=== PATIENT | male | born 1955 | race Two or more races ===

== ENCOUNTER 2016-07-19 15:22 | Inpatient (IN) | payer MEDICARE, MEDICAID ==
[~2016-07-19] VITALS: Ht 165.1 cm; Wt 45.4 kg
[2016-07-19] VITALS (8 sets, daily range): BP systolic 99–132; BP diastolic 41–53
[~2016-07-19 15:22] MED LIST: ACETAZOLAMIDE500 MG ORAL; AMIODARONE HCL100 MG ORAL; AMIODARONE HCL200 MG PO; AMIODARONE HCL400 M1 ORAL; AMITRIPTYLINE150 MG PO; AMITRIPTYLINE25 MG ORAL; AMLODIPINE BESY10 MG ORAL; AMLODIPINE BESY10 MG PO; BRIMONIDINE TART5 ML RIGHT EYE; CLONIDINE1 EAC1 TD; COMPAZINE10 MG ORAL; CORDARONE200 M1 ORAL; COSOPT1 DRO2 RIGHT EYE; COZAAR50 MG ORAL; COZAAR50 MG PO; JANUVIA25 MG ORAL; JANUVIA25 MG PO; LOMOTIL TABLET1 EACH PO; LONITEN2.5 MG PO; LORAZEPAM0.5 MG PO; LOSARTAN POTASS50 MG ORAL; METOCLOPRAM5 MG/1 M1 IVP; METOCLOPRAMIDE10 M1 PO; METOPROLOL TART25 MG PO; MINOXIDIL2.5 MG PO; NEPHROVITE1 TAB PO; NORCO 5-325 TA1 EACH ORAL; NORCO 5-325 TA1 EACH PO; PANTOPRAZOLE SO40 MG ORAL; PERCOCET 5-3251 EACH ORAL; PREDNISOLONE ACE5 ML OP; PREDNISOLONE ACE5 ML RIGHT EYE; PROTONIX40 MG PO; RENVELA800 MG ORAL; RENVELA800 MG PO; SYNTHROID25 MCG ORAL; XALATAN2.5 ML RIGHT EYE; ZOFRAN 4 MG4 MG/2 ML IVP; ZOFRAN ODT4 MG PO; ZOFRAN8 MG ORAL
[2016-07-19] MEDS ORDERED: Famotidine 20 MG/ 2ML VIAL IVP ONE (15:45)
--- NOTE | 2016-07-19 15:50 | Emergency Room Report ---
History of Present Illness General Chief Complaint: Gastrointestinal Bleed Source: Patient Present Illness HPI Patient is a 61-year-old male who presented after increased hematemesis as well as bleeding from his G-tube site. Patient prior history of end-stage renal disease. Patient reportedly been vomiting blood since 2 days ago. The patient reports being dialyzed on Wednesday and is normally dialyzed Wednesday using right arm shunt. Patient denied any fever. He reported having some epigastric pain. Allergies: Coded Allergies: No Known Allergies (Unverified , 10/25/11) Patient History Past Medical History: see triage record, HTN, renal disease, dialysis - mwf Reviewed Nursing Documentation: PMH: Agreed, PSxH: Agreed Nursing Documentation-PMH Past Medical History: No History, Except For Hx Cardiac Problems: Yes Hx Hypertension: No Hx Pacemaker: Yes Hx Asthma: No Hx COPD: No Hx Diabetes: Yes Hx Cancer: No Hx Gastrointestinal Problems: Yes - gastroperesis Hx Dialysis: Yes - M, W, F Hx Neurological Problems: No Review of Systems All Other Systems: negative except mentioned in HPI Physical Exam Vital Signs Date Time Temp Pulse Resp B/P Pulse Ox O2 Delivery O2 Flow Rate FiO2 07/19/16 15:29 97.7 92 16 98/53 99 Room Air Sp02 EP Interpretation: normal General Appearance: alert, GCS 15, mild distress Eyes: bilateral eye conjunctivae pale ENT: hearing grossly normal, normal pharynx Neck: full range of motion, supple Respiratory: lungs clear, normal breath sounds, no respiratory distress Cardiovascular #1: normal peripheral pulses, regular rate, rhythm, no edema Gastrointestinal: non tender, soft, no mass, no organomegaly, other - gastrostomy tube Musculoskeletal: back normal, digits/nails normal, other - right upper arm dialysis access with palpable thrill Neurologic: alert, oriented x3, responsive Skin: normal inspection Procedures Critical Care Time Critical Care Time Patient had a critical medical condition which untreated could potentially result in life or limb threatening injury. Total critical care time excluding procedures approximately 45 minutes. Medical Decision Making Diagnostic Impression: Primary Impression: Gastrointestinal bleeding, upper Additional Impressions: Anemia Gastrostomy in place ESRD (end stage renal disease) ER Course Patient presented for upper GI bleeding. The patient was noted to have prior history of gastroparesis. Differential diagnosis included was not limited to the G-tube migration, ulcer, gastritis, coagulopathy, variceal bleed among others.Because of complexity of patient's case laboratory testing and imaging studies were ordered.Patient was noted be initially hypotensive and was started on IV fluids. The patient was consented for blood and was type and crossed for blood 4units of PRBC. EKG interpreted by me showed normal sinus rhythm with a rate of 86 with a right bundle-branch block and left anterior fascicular block there were no acute ST or T wave changes noted. The patient was noted to have improvement in his blood pressure after IV fluid. Dr. Dee was contacted for GI consult and was informed of the patient's hemoglobin. Dr. Guillermo Galvez was contacted for in patient management. The patient was given IV Zofran as well as Pepcid IV Labs Test 07/19/16 16:18 White Blood Count 7.9 K/UL (4.8-10.8) Red Blood Count 1.66 M/UL (4.70-6.10) Hemoglobin 5.4 G/DL (14.2-18.0) Hematocrit 16.1 % (42.0-52.0) Mean Corpuscular Volume 97 FL (80-99) Mean Corpuscular Hemoglobin 32.4 PG (27.0-31.0) Mean Corpuscular Hemoglobin Concent 33.3 G/DL (32.0-36.0) Red Cell Distribution Width 13.8 % (11.6-14.8) Platelet Count 102 K/UL (150-450) Mean Platelet Volume 6.5 FL (6.5-10.1) Neutrophils (%) (Auto) % (45.0-75.0) Lymphocytes (%) (Auto) % (20.0-45.0) Monocytes (%) (Auto) % (1.0-10.0) Eosinophils (%) (Auto) % (0.0-3.0) Basophils (%) (Auto) % (0.0-2.0) EKG Diagnostic Results Rate: normal Rhythm: NSR ST Segments: other - bifascicular block Last Vital Signs Date Time Temp Pulse Resp B/P Pulse Ox O2 Delivery O2 Flow Rate FiO2 07/19/16 15:41 98.0 87 15 99/45 100 Room Air Status: unchanged Disposition: ADMITTED INPATIENT Condition: Critical Harry Guzman Jul 19, 2016 15:50
[2016-07-19 16:49] LABS: MEAN CORPUSCULAR HEMOGLOBIN 32.4 PG (27.0-31.0); MEAN CORPUSCULAR HGB CONC 33.3 G/DL (32.0-36.0); MEAN CORPUSCULAR VOLUME 97 FL (80-99); MEAN PLATELET VOLUME 6.5 FL (6.5-10.1); PLATELET COUNT 102 K/UL (150-450); RED BLOOD COUNT 1.66 M/UL (4.70-6.10); RED CELL DISTRIBUTION WIDTH 13.8 % (11.6-14.8); WHITE BLOOD COUNT 7.9 K/UL (4.8-10.8)
[2016-07-19 16:54] LABS: INR 1.2 (0.9-1.1)
[2016-07-19 17:00] LABS: ALANINE AMINOTRANSFERASE 12 U/L (3-41); ALBUMIN/GLOBULIN RATIO 1.7 (1.0-2.7); ALCOHOL < 10 mg/dL; ANION GAP 15 (5-15); ASPARTATE AMINO TRANSFERASE 12 U/L (5-40); CALCIUM 9.4 mg/dL (8.6-10.2); CARBON DIOXIDE 28 mEQ/L (20-30); CHLORIDE 97 mEQ/L (98-107); CREATININE 6.6 mg/dL (0.7-1.2); GLOMERULAR FILTRATION RATE 8.6 mL/min (>60); HEMOLYSIS 4; LIPASE 30 U/L (< 60); SODIUM 140 mEQ/L (135-145)
[2016-07-19] MEDS ORDERED: Metoclopramide 10mg/2ml Inj IVP ONE (18:30)
[2016-07-19 18:32] LABS: BAND NEUTROPHILS % (MANUAL) 0 % (0-8); BASOPHILS % (MANUAL) 0 % (0-2); EOSINOPHILS % (MANUAL) 0 % (0-3); LYMPHOCYTES % (MANUAL) 7 % (20-45); NEUTROPHILS % (MANUAL) 91 % (45-75); PLATELET ESTIMATE DECREASED; TOTAL CELLS COUNTED 100
[2016-07-19 18:33] LABS: ANISOCYTOSIS 1+; POLYCHROMASIA 1+
[2016-07-19 18:34] LABS: HYPOCHROMASIA 1+; PLATELET MORPHOLOGY NORMAL
--- NOTE | 2016-07-19 19:53 | General Progress Note ---
Assessment/Plan Assessment/Plan GI CONSULT Dictated EGD in am Thank you Luiz Subjective Allergies: Coded Allergies: No Known Allergies (Unverified , 10/25/11) Objective Last 24 Hour Vital Signs Date Time Temp Pulse Resp B/P Pulse Ox O2 Delivery O2 Flow Rate FiO2 07/19/16 18:15 98.1 86 16 102/43 98 Room Air 07/19/16 18:15 98.1 86 16 07/19/16 18:00 98.2 85 16 07/19/16 18:00 98.2 85 16 99/41 98 Room Air 07/19/16 17:16 98.0 89 14 123/42 98 Room Air 07/19/16 15:41 98.0 87 15 99/45 100 Room Air 07/19/16 15:29 97.7 92 16 98/53 99 Room Air Laboratory Tests 07/19/16 16:18: White Blood Count 7.9, Red Blood Count 1.66L, Hemoglobin 5.4*L, Hematocrit 16.1L , Mean Corpuscular Volume 97, Mean Corpuscular Hemoglobin 32.4H, Mean Corpuscular Hemoglobin Concent 33.3, Red Cell Distribution Width 13.8, Platelet Count 102L, Mean Platelet Volume 6.5, Neutrophils (%) (Auto) , Lymphocytes (%) ( Auto) , Monocytes (%) (Auto) , Eosinophils (%) (Auto) , Basophils (%) (Auto) , Differential Total Cells Counted 100, Neutrophils % (Manual) 91H, Lymphocytes % (Manual) 7L, Monocytes % (Manual) 2, Eosinophils % (Manual) 0, Basophils % ( Manual) 0, Band Neutrophils 0, Platelet Estimate DecreasedL, Platelet Morphology Normal, Polychromasia 1+, Hypochromasia 1+, Anisocytosis 1+, Prothrombin Time 12.0H, Prothromb Time International Ratio 1.2H, Activated Partial Thromboplast Time 23, Sodium Level 140, Potassium Level 5.0H, Chloride Level 97L, Carbon Dioxide Level 28, Anion Gap 15, Blood Urea Nitrogen 72H, Creatinine 6.6H, Estimat Glomerular Filtration Rate 8.6, Glucose Level 190H, Calcium Level 9.4, Total Bilirubin 0.3, Aspartate Amino Transf (AST/SGOT) 12, Alanine Aminotransferase (ALT/SGPT) 12, Alkaline Phosphatase 63, Total Protein 5.0L, Albumin 3.2L, Globulin 1.8, Albumin/Globulin Ratio 1.7, Lipase 30, Serum Alcohol < 10 Height (Feet): 5 Height (Inches): 3.00 Weight (Pounds): 95 KAYDEN MORALES Jul 19, 2016 19:53
[2016-07-19] MEDS: Pantoprazole 80 MG in NS 250 ML IV SCH (20:12)
[2016-07-19] MEDS: Brimonidine 0.2% Opth Sol RIGHT EYE SCH (21:00)
[2016-07-19] MEDS: Minoxidil 2.5mg tab ORAL SCH (21:00)
[2016-07-19] MEDS: Pred Forte 1% Opth Susp 1ml RIGHT EYE SCH (21:00)
[2016-07-19] MEDS: Cosopt Opth Soln 10 mL Btl RIGHT EYE SCH (21:00)
[2016-07-20] VITALS (24 sets, daily range): BP systolic 80–152; BP diastolic 39–63
[2016-07-20 00:10] LABS: MEAN CORPUSCULAR HEMOGLOBIN 31.6 PG (27.0-31.0); MEAN CORPUSCULAR VOLUME 93 FL (80-99); MEAN PLATELET VOLUME 6.6 FL (6.5-10.1); PLATELET COUNT 106 K/UL (150-450); RED BLOOD COUNT 2.36 M/UL (4.70-6.10); RED CELL DISTRIBUTION WIDTH 13.3 % (11.6-14.8)
--- NOTE | 2016-07-20 01:58 | History and Physical Report ---
DATE OF ADMISSION: 07/19/2016 CHIEF COMPLAINT: Acute gastrointestinal bleed. HISTORY OF PRESENT ILLNESS: The patient is a pleasant 61-year-old male well known to me. He has a history of severe gastroparesis status post G-tube, hypertension, and end-stage renal disease on chronic hemodialysis. He was recently diagnosed with lung cancer and was scheduled to get surgery. The patient presented with complaints of two days of coffee-ground emesis and melena. According to the patient, he had coffee-ground emesis two days prior to admission. This symptom ceased, but then recovered today. He has also noted two days of black stools. On evaluation in the emergency room, the patient's hemoglobin was 5. Coags were normal. He is currently being transfused. The patient denies any chest pain or shortness of breath. PAST MEDICAL HISTORY: As above. PAST SURGICAL HISTORY: Includes a history of AV fistula. CURRENT MEDICATIONS: Reconciled and reviewed. ALLERGIES: None. FAMILY HISTORY: None. SOCIAL HISTORY: Negative for tobacco, ethanol, or drugs. REVIEW OF SYSTEMS: General: No fever or chills. HEENT: No headaches or visual changes. Cardiopulmonary: No chest pain or shortness of breath. Gastrointestinal: Positive nausea or vomiting. Positive melena. Positive hematemesis. Genitourinary: No urgency or frequency. Musculoskeletal: No joint pain or swelling. Neurologic: No evidence of seizures. PHYSICAL EXAMINATION: VITAL SIGNS: Temperature 98.1 degrees, pulse 86, respirations 16, and blood pressure 102/43. GENERAL: The patient is a well-developed, pink male, in no apparent distress. He is awake, alert, and oriented. HEENT: His pupils are equal, round, and reactive to light. Oropharynx is clear. NECK: Supple. HEART: Regular rate and rhythm. LUNGS: Clear. ABDOMEN: Soft, nontender, and nondistended. He has a G-tube. There is a blood over his gown. EXTREMITIES: Without clubbing or cyanosis. The patient has a right upper extremity AV fistula. NEUROLOGIC: Nonfocal. PERTINENT DATA: INR is 1.2 with PTT of 23, white count 8, hemoglobin 5.4, hematocrit of 16, and platelets of 102,000. Sodium is 140, potassium 5, chloride 97, bicarbonate 28, BUN 72, and creatinine 6.6. Alcohol level was less than 10. ASSESSMENT: This is a pleasant 61-year-old male with a history of end-stage renal disease, hypertension, lung cancer, and paroxysmal atrial fibrillation, admitted with acute severe gastrointestinal bleed. On hemodialysis, the patient is stable though he is currently being transfused. PROBLEMS: 1. Acute gastrointestinal bleed. 2. Chronic obstructive pulmonary disease. 3. Hypertension. 4. End-stage renal disease. 5. Paroxysmal atrial fibrillation. 6. History of gastroparesis status post gastrostomy tube. PLAN: 1. Intravenous Protonix drip. 2. Monitor serial CBCs. 3. Transfuse 3 units of packed red blood cells. 4. GI consultation will be obtained. 5. Continue outpatient antihypertensive regimen. 6. Bolus fluids as needed. In light of the patient's dialysis, we will hold on IV fluids. 7. The patient's status is critical and guarded. 8. Plan of care was discussed with the patient. Guillermo Galvez M.D. DR: DENZEL JOB#: [id number] CC:
--- NOTE | 2016-07-20 02:48 | Consultation ---
DATE OF CONSULTATION: 07/19/2016 CHIEF COMPLAINT: I was asked to see this patient for evaluation of hematemesis. HISTORY OF PRESENT ILLNESS: The patient is a pleasant, unfortunate, 61-year-old, man with a long-standing history of cyclic nausea and vomiting disorder with components of gastroparesis, who eventually underwent gastrojejunostomy catheter at an outside institution. The patient now was brought into the hospital. He had no hematemesis. The patient denies any abdominal discomfort or any other symptoms. His last endoscopy was on 06/12/2016 where he underwent placement of his gastrojejunostomy catheter. PAST MEDICAL HISTORY: History of cataract surgery; hypertension; end-stage renal disease, on hemodialysis; diabetes; and gastroparesis with cyclic vomiting syndrome, status post gastrojejunostomy catheter placement. PAST SURGICAL HISTORY: Status post cholecystectomy and AV fistula placement. ALLERGIES: No known drug allergies. FAMILY HISTORY: Noncontributory. SOCIAL HISTORY: The patient resides in area and is debilitated requiring significant care. REVIEW OF SYSTEMS: Otherwise negative. MEDICATIONS: See chart. PHYSICAL EXAMINATION: GENERAL: A thin and debilitated man seen in intensive care unit. HEENT: Normocephalic and atraumatic. Sclerae anicteric. Oropharynx is clear. NECK: Supple. CHEST: Revealed coarse breath sounds. CARDIOVASCULAR: Irregular rate. ABDOMEN: Soft. Good bowel sounds. Gastrojejunostomy catheter was identified and only. EXTREMITIES: Revealed no edema. LABORATORY DATA: Noted. ASSESSMENT: This patient presents with upper gastrointestinal bleeding, which is likely gastric in origin based on the appearance of upper gastrojejunostomy catheter. The possibilities include ulcers or gastroesophageal reflux. The patient will undergo endoscopy tomorrow to evaluate the possibilities . In the mean time, he can be placed on a proton pump inhibitor and blood transfusion can be given. His baseline hematocrit is likely lower than average since he has had end-stage renal disease. RECOMMENDATIONS: Per above discussion and per orders written in the chart. I have advised the patient that there is a possibility that the gastrojejunostomy catheter can be placed at the time of the endoscopy tomorrow. Thank you for asking me to participate in the care of this patient. Royce Dee M.D. DR: NIKKI JOB#: [id number] CC:
--- NOTE | 2016-07-20 03:38 | Consultation ---
DATE OF CONSULTATION: 07/19/2016 REFERRING PHYSICIAN: Guillermo Galvez M.D. REASON FOR CONSULTATION: Shock in the setting of acute gastrointestinal bleeding with underlying cardiomyopathy and arrhythmia. HISTORY OF PRESENT ILLNESS: This is a 61-year-old male with a history of ischemic and hypertensive cardiomyopathy, paroxysmal atrial fibrillation, and end-stage renal disease, on hemodialysis. He is on chronic antiarrhythmic therapy with amiodarone. He presented to the emergency room with recurrent hematemesis and bleeding from his G-tube site. The patient apparently has been having bloody emesis for the past two days. He has had some epigastric pain, but no other constitutional symptoms. PAST MEDICAL HISTORY: Gastroparesis, diabetes mellitus, paroxysmal atrial fibrillation, permanent pacemaker, cardiomyopathy, congestive heart failure, and end-stage renal disease. ALLERGIES: None. FAMILY HISTORY: Noncontributory. SOCIAL HISTORY: No record of smoking, alcohol, or substance abuse. MEDICATIONS: Prior to admission, reviewed and reconciled. REVIEW OF SYSTEMS: No fevers or chills. No new antiplatelet or anticoagulant therapies. No seizures or strokes. No chest pain or shortness of breath. He gets dialysis from his AV fistula on the right upper extremity Wednesday, Wednesday, and Wednesday. He was at his last dialysis session Wednesday without problem. No history of asthma. He does not recall when his pacemaker was last checked. He was last here in early 2015 and it was interrogated at that time. PHYSICAL EXAMINATION: VITAL SIGNS: Blood pressure 98/53, pulse 93, and respirations 16. Afebrile. GENERAL: Temporal wasting. HEENT: Pale conjunctivae. Oropharynx is clear. NECK: Supple. LUNGS: Clear. CARDIAC: Regular rhythm and rate. Normal S1, paradoxically split S2. 1/6 systolic murmur at apex. ABDOMEN: Soft and nontender. G-tube intact. EXTREMITIES: No edema. Palpable bruit over right upper extremity AV fistula. LABORATORY DATA: White count 7.9, hemoglobin 5.4, and platelet count 102,000. INR 1.2. Sodium 140, potassium 5.0, bicarb 28, BUN 72, and creatinine 6.6. Albumin 3.2. Glucose 190. Lipase is normal. IMPRESSION: 1. Shock, hypovolemia. 2. Acute blood loss due to gastrointestinal bleeding. 3. Bifascicular heart block. 4. Conduction system disease of the heart. 5. Paroxysmal atrial fibrillation. 6. Underlying cardiomyopathy. 7. Insulin-requiring diabetes with gastroparesis. 8. End-stage renal disease. Condition is critical. Prognosis is guarded. PLAN: 1. Transfusion of packed cells. 2. Cautious volume support in view of renal failure. 3. Hold all antihypertensives. 4. Avoid any antiplatelet drugs or anticoagulants. 5. Transfuse for hemoglobin above 7.5 g. 6. Hemodialysis with ultrafiltration based on volume. 7. Continue amiodarone for arrhythmia suppression. 8. Pacemaker interrogation to follow. 9. Intensive care unit monitoring and protocol in view of critical condition. Christopher Muhammad M.D. DR: RAMIREZ JOB#: [id number] CC: RIGOBERTO
[2016-07-20 04:57] LABS: BASOPHILS % (AUTO) 1.1 % (0.0-2.0); EOSINOPHILS % (AUTO) 0.4 % (0.0-3.0); LYMPHOCYTES % (AUTO) 20.1 % (20.0-45.0); MEAN CORPUSCULAR HEMOGLOBIN 31.5 PG (27.0-31.0); MEAN CORPUSCULAR HGB CONC 34.1 G/DL (32.0-36.0); MEAN CORPUSCULAR VOLUME 92 FL (80-99); MEAN PLATELET VOLUME 6.9 FL (6.5-10.1); NEUTROPHILS % (AUTO) 69.5 % (45.0-75.0); PLATELET COUNT 101 K/UL (150-450); RED BLOOD COUNT 2.62 M/UL (4.70-6.10); RED CELL DISTRIBUTION WIDTH 13.5 % (11.6-14.8); WHITE BLOOD COUNT 5.2 K/UL (4.8-10.8)
[2016-07-20] MEDS: Pantoprazole 80 MG in NS 250 ML IV SCH ×2 (06:27→16:24)
[2016-07-20] MEDS: Levothyroxine 25mcg tab ORAL SCH (06:27)
[2016-07-20 07:47] LABS: CREATININE 7.3 mg/dL (0.7-1.2); GLOMERULAR FILTRATION RATE 7.6 mL/min (>60); POTASSIUM 5.6 mEQ/L (3.4-4.9)
[2016-07-20] MEDS: Pred Forte 1% Opth Susp 1ml RIGHT EYE SCH ×4 (09:00→21:00)
[2016-07-20] MEDS: Cosopt Opth Soln 10 mL Btl RIGHT EYE SCH ×2 (09:00→18:00)
[2016-07-20] MEDS: Amiodarone 200mg tab ORAL SCH (09:00)
[2016-07-20] MEDS: Brimonidine 0.2% Opth Sol RIGHT EYE SCH ×2 (09:00→18:00)
[2016-07-20] MEDS: Minoxidil 2.5mg tab ORAL SCH (09:00)
[2016-07-20 10:25] LABS: BAND NEUTROPHILS % (MANUAL) 0 % (0-8); BASOPHILS % (MANUAL) 0 % (0-2); EOSINOPHILS % (MANUAL) 0 % (0-3); HYPOCHROMASIA 3+; LYMPHOCYTES % (MANUAL) 23 % (20-45); NEUTROPHILS % (MANUAL) 70 % (45-75); PLATELET ESTIMATE DECREASED; PLATELET MORPHOLOGY NORMAL; SPHEROCYTES 2+; TOTAL CELLS COUNTED 100
--- NOTE | 2016-07-20 10:53 | Diagnostic Imaging Report ---
Indication: VOMITING Technique: Supine view of the abdomen Comparison: 05/08/2015 Findings: There is a gastrojejunostomy tube now present, course of the jejunostomy suggestive of the tip being in the proximal jejunum just beyond the ligament of Treitz. There is possible, but less likely, that the catheters is coiled within the gastric antrum, however. Previously demonstrated nasogastric tube has been removed. Bowel gas pattern is unremarkable area. Cholecystectomy clips are again demonstrated Impression: Probably satisfactory position of gastrojejunostomy, jejunostomy tip in the expected region of the proximal jejunum just beyond the ligament of Treitz. However, contrast injection would be necessary to confirm. Other findings as noted
--- NOTE | 2016-07-20 11:37 | Anethesia Preoperative Eval ---
Anesthesia Pre-op PMH/ROS General Date of Evaluation: Jul 20, 2016 Time of Evaluation: 12:39 Anesthesiologist: Tabitha ASA Score: ASA 4 Mallampati Score Class I : Soft palate, uvula, fauces, pillars visible Class II: Soft palate, uvula, fauces visible Class III: Soft palate, base of uvula visible Class IV: Only hard plate visible Mallampati Classification: Class II Surgeon: Luiz Diagnosis: Abd Pain Surgical Procedure: GD Anesthesia History: none Family History: no anesthesia problems Allergies: Coded Allergies: No Known Allergies (Unverified , 10/25/11) Medications: see eMAR Past Medical History Cardiovascular: Reports: CAD - CT, Angina, HTN, arrhythmia Gastrointestinal/Genitourinary: Reports: ESRD - Dialysis Endocrine: Reports: DM Hematology/Immune: Reports: anemia, other - Cancer Anesthesia Pre-op Phys. Exam Physician Exam Last Vital Signs Date Time Temp Pulse Resp B/P Pulse Ox O2 Delivery O2 Flow Rate FiO2 07/20/16 11:00 103 13 112/59 99 Room Air 07/20/16 08:00 98.9 Constitutional: NAD Neurologic: CN 2-12 intact Cardiovascular: RRR Respiratory: CTA Gastrointestinal: S/NT/ND Airway Exam Mallampati Score: Class II MO: limited ROM: limited Teeth: missing, intact Anesthesia Pre-op A/P Labs Hematology Test 07/19/16 16:18 07/20/16 00:00 07/20/16 04:00 White Blood Count 7.9 K/UL (4.8-10.8) 6.0 K/UL (4.8-10.8) 5.2 K/UL (4.8-10.8) Red Blood Count 1.66 M/UL (4.70-6.10) L 2.36 M/UL (4.70-6.10) L 2.62 M/UL (4.70-6.10) L Hemoglobin 5.4 G/DL (14.2-18.0) *L 7.5 G/DL (14.2-18.0) #L 8.3 G/DL (14.2-18.0) L Hematocrit 16.1 % (42.0-52.0) L 21.9 % (42.0-52.0) #L 24.2 % (42.0-52.0) L Mean Corpuscular Volume 97 FL (80-99) 93 FL (80-99) 92 FL (80-99) Mean Corpuscular Hemoglobin 32.4 PG (27.0-31.0) H 31.6 PG (27.0-31.0) H 31.5 PG (27.0-31.0) H Mean Corpuscular Hemoglobin Concent 33.3 G/DL (32.0-36.0) 34.0 G/DL (32.0-36.0) 34.1 G/DL (32.0-36.0) Red Cell Distribution Width 13.8 % (11.6-14.8) 13.3 % (11.6-14.8) 13.5 % (11.6-14.8) Platelet Count 102 K/UL (150-450) L 106 K/UL (150-450) L 101 K/UL (150-450) L Mean Platelet Volume 6.5 FL (6.5-10.1) 6.6 FL (6.5-10.1) 6.9 FL (6.5-10.1) Neutrophils (%) (Auto) % (45.0-75.0) % (45.0-75.0) 69.5 % (45.0-75.0) Lymphocytes (%) (Auto) % (20.0-45.0) % (20.0-45.0) 20.1 % (20.0-45.0) Monocytes (%) (Auto) % (1.0-10.0) % (1.0-10.0) 9.0 % (1.0-10.0) Eosinophils (%) (Auto) % (0.0-3.0) % (0.0-3.0) 0.4 % (0.0-3.0) Basophils (%) (Auto) % (0.0-2.0) % (0.0-2.0) 1.1 % (0.0-2.0) Differential Total Cells Counted 100 100 Neutrophils % (Manual) 91 % (45-75) H 70 % (45-75) Lymphocytes % (Manual) 7 % (20-45) L 23 % (20-45) Monocytes % (Manual) 2 % (1-10) 7 % (1-10) Eosinophils % (Manual) 0 % (0-3) 0 % (0-3) Basophils % (Manual) 0 % (0-2) 0 % (0-2) Band Neutrophils 0 % (0-8) 0 % (0-8) Platelet Estimate Decreased L Decreased L Platelet Morphology Normal Normal Polychromasia 1+ Hypochromasia 1+ 3+ Anisocytosis 1+ Spherocytes 2+ Coagulation Test 07/19/16 16:18 Prothrombin Time 12.0 SEC (9.30-11.50) H Prothromb Time International Ratio 1.2 (0.9-1.1) H Activated Partial Thromboplast Time 23 SEC (23-33) Chemistry Test 07/19/16 16:18 07/20/16 04:00 Sodium Level 140 mEQ/L (135-145) 142 mEQ/L (135-145) Potassium Level 5.0 mEQ/L (3.4-4.9) H 5.6 mEQ/L (3.4-4.9) H Chloride Level 97 mEQ/L (98-107) L 101 mEQ/L (98-107) Carbon Dioxide Level 28 mEQ/L (20-30) 25 mEQ/L (20-30) Anion Gap 15 (5-15) 16 (5-15) H Blood Urea Nitrogen 72 mg/dL (7-23) H 92 mg/dL (7-23) H Creatinine 6.6 mg/dL (0.7-1.2) H 7.3 mg/dL (0.7-1.2) H Estimat Glomerular Filtration Rate 8.6 mL/min (>60) 7.6 mL/min (>60) Glucose Level 190 mg/dL (74-106) H 111 mg/dL (74-106) H Calcium Level 9.4 mg/dL (8.6-10.2) 9.0 mg/dL (8.6-10.2) Total Bilirubin 0.3 mg/dL (0.0-1.2) Aspartate Amino Transf (AST/SGOT) 12 U/L (5-40) Alanine Aminotransferase (ALT/SGPT) 12 U/L (3-41) Alkaline Phosphatase 63 U/L (40-129) Total Protein 5.0 g/dL (6.6-8.7) L Albumin 3.2 g/dL (3.5-5.2) L Globulin 1.8 g/dL Albumin/Globulin Ratio 1.7 (1.0-2.7) Lipase 30 U/L (< 60) Risk Assessment & Plan Assessment: ASA 4 Plan: GA Status Change Before Surgery: Chun Jimenez MD Jul 20, 2016 11:37
[2016-07-20] MEDS ORDERED: Midazolam 2mg/2ml Inj ONE (12:30)
[2016-07-20] MEDS ORDERED: Propofol 10mg/ml 20ml IV ONE (12:30)
[2016-07-20] MEDS ORDERED: Lidocaine 1% MPF 10mg/ml 5ml ONE (12:30)
[2016-07-20] MEDS ORDERED: NS 550ML IV ONE (12:35)
--- NOTE | 2016-07-20 12:35 | Consultation ---
Consult Note Assessment/Plan Renal consul dictated # [id number] ROLAND FOX Jul 20, 2016 12:35
--- NOTE | 2016-07-20 13:04 | Immediate Post-Op Evaluation ---
Immediate Post-Op Evalulation Immediate Post-Op Evalulation Procedure: EGD Date of Evaluation: Jul 20, 2016 Time of Evaluation: 13:48 IV Fluids: 500 NS Blood Products: 0 Estimated Blood Loss: 2 Urinary Output: 0 Blood Pressure Systolic: 118 Blood Pressure Diastolic: 52 Pulse Rate: 81 Respiratory Rate: 16 O2 Sat by Pulse Oximetry: 99 Temperature (Fahrenheit): 98.6 Pain Score (1-10): 2 Nausea: No Vomiting: No Complications 0 Patient Status: awake, reacts, patent, none Hydration Status: adequate Chun Lu MD Jul 20, 2016 13:04
--- NOTE | 2016-07-20 13:04 | General Progress Note ---
Assessment/Plan Problem List: (1) Diabetic gastroparesis ICD Codes: E11.43 - Diabetic gastroparesis SNOMED: 11809696 (2) Anemia ICD Codes: D64.9 - Anemia SNOMED: 988749215 (3) INTRACTABLE VOMITING (4) ESRD (end stage renal disease) on dialysis ICD Codes: N18.6 - ESRD (end stage renal disease) on dialysis; Z99.2 - Dependence on renal dialysis SNOMED: 008418063 (5) Hypertension ICD Codes: I10 - Hypertension SNOMED: 15789847 (6) Gastrointestinal bleeding, upper ICD Codes: K92.2 - Upper gastrointestinal hemorrhage SNOMED: 94932615 Status: not improved Assessment/Plan ppi drip monitor h/h transfuse bp rx HD per renal guarded Subjective ROS Limited/Unobtainable: No Constitutional: Reports: malaise, weakness HEENT: Reports: no symptoms Cardiovascular: Reports: no symptoms Respiratory: Reports: no symptoms Gastrointestinal/Abdominal: Reports: blood in stool, rectal bleeding, vomiting Genitourinary: Reports: no symptoms Neurologic/Psychiatric: Reports: no symptoms Endocrine: Reports: no symptoms Hematologic/Lymphatic: Reports: anemia Allergies: Coded Allergies: No Known Allergies (Unverified , 10/25/11) All Systems: reviewed and negative except above Subjective vomited blood x 2. hypotensive. labs noted. d/w Objective Last 24 Hour Vital Signs Date Time Temp Pulse Resp B/P Pulse Ox O2 Delivery O2 Flow Rate FiO2 07/20/16 12:00 88 07/20/16 12:00 89 15 87/43 99 Room Air 07/20/16 11:00 103 13 112/59 99 Room Air 07/20/16 10:00 84 12 80/40 99 Room Air 07/20/16 09:00 81 11 86/42 97 Room Air 07/20/16 09:00 133/52 07/20/16 08:00 98.9 83 13 139/61 99 Room Air 07/20/16 07:00 80 13 129/62 97 Room Air 07/20/16 06:00 83 12 117/52 97 Room Air 07/20/16 05:00 88 19 123/56 99 Room Air 07/20/16 04:00 98.4 82 14 118/55 98 Room Air 07/20/16 04:00 88 07/20/16 03:00 83 12 118/55 99 Room Air 07/20/16 02:00 84 17 110/51 100 Room Air 07/20/16 01:00 83 13 97/39 99 Room Air 07/20/16 00:00 87 07/20/16 00:00 98.7 87 17 102/42 99 Room Air 07/19/16 23:00 83 13 101/51 98 Room Air 07/19/16 22:00 93 21 132/53 99 Room Air 07/19/16 21:00 114/47 07/19/16 21:00 85 11 115/51 99 Room Air 07/19/16 20:08 97.4 90 18 114/47 100 Room Air 07/19/16 20:00 88 07/19/16 19:40 90 07/19/16 18:15 98.1 86 16 102/43 98 Room Air 07/19/16 18:15 98.1 86 16 07/19/16 18:00 98.2 85 16 07/19/16 18:00 98.2 85 16 99/41 98 Room Air 07/19/16 17:16 98.0 89 14 123/42 98 Room Air 07/19/16 15:41 98.0 87 15 99/45 100 Room Air 07/19/16 15:29 97.7 92 16 98/53 99 Room Air Intake and Output 07/19/16 07/20/16 19:00 07:00 Intake Total 1125 ml Output Total 450 ml Balance 675 ml Intake Oral 0 ml IV Total 275 ml Blood Product 850 ml Output Urine Total 0 ml Emesis 450 ml # Bowel Movements 1 Laboratory Tests 07/19/16 16:18: White Blood Count 7.9, Red Blood Count 1.66L, Hemoglobin 5.4*L, Hematocrit 16.1L , Mean Corpuscular Volume 97, Mean Corpuscular Hemoglobin 32.4H, Mean Corpuscular Hemoglobin Concent 33.3, Red Cell Distribution Width 13.8, Platelet Count 102L, Mean Platelet Volume 6.5, Neutrophils (%) (Auto) , Lymphocytes (%) ( Auto) , Monocytes (%) (Auto) , Eosinophils (%) (Auto) , Basophils (%) (Auto) , Differential Total Cells Counted 100, Neutrophils % (Manual) 91H, Lymphocytes % (Manual) 7L, Monocytes % (Manual) 2, Eosinophils % (Manual) 0, Basophils % ( Manual) 0, Band Neutrophils 0, Platelet Estimate DecreasedL, Platelet Morphology Normal, Polychromasia 1+, Hypochromasia 1+, Anisocytosis 1+, Prothrombin Time 12.0H, Prothromb Time International Ratio 1.2H, Activated Partial Thromboplast Time 23, Sodium Level 140, Potassium Level 5.0H, Chloride Level 97L, Carbon Dioxide Level 28, Anion Gap 15, Blood Urea Nitrogen 72H, Creatinine 6.6H, Estimat Glomerular Filtration Rate 8.6, Glucose Level 190H, Calcium Level 9.4, Total Bilirubin 0.3, Aspartate Amino Transf (AST/SGOT) 12, Alanine Aminotransferase (ALT/SGPT) 12, Alkaline Phosphatase 63, Total Protein 5.0L, Albumin 3.2L, Globulin 1.8, Albumin/Globulin Ratio 1.7, Lipase 30, Serum Alcohol < 10 07/20/16 00:00: White Blood Count 6.0, Red Blood Count 2.36L, Hemoglobin 7.5#L, Hematocrit 21.9# L, Mean Corpuscular Volume 93, Mean Corpuscular Hemoglobin 31.6H, Mean Corpuscular Hemoglobin Concent 34.0, Red Cell Distribution Width 13.3, Platelet Count 106L, Mean Platelet Volume 6.6, Neutrophils (%) (Auto) , Lymphocytes (%) ( Auto) , Monocytes (%) (Auto) , Eosinophils (%) (Auto) , Basophils (%) (Auto) , Differential Total Cells Counted 100, Neutrophils % (Manual) 70, Lymphocytes % ( Manual) 23, Monocytes % (Manual) 7, Eosinophils % (Manual) 0, Basophils % ( Manual) 0, Band Neutrophils 0, Platelet Estimate DecreasedL, Platelet Morphology Normal, Hypochromasia 3+, Spherocytes 2+ 07/20/16 04:00: White Blood Count 5.2, Red Blood Count 2.62L, Hemoglobin 8.3L, Hematocrit 24.2L , Mean Corpuscular Volume 92, Mean Corpuscular Hemoglobin 31.5H, Mean Corpuscular Hemoglobin Concent 34.1, Red Cell Distribution Width 13.5, Platelet Count 101L, Mean Platelet Volume 6.9, Neutrophils (%) (Auto) 69.5, Lymphocytes ( %) (Auto) 20.1, Monocytes (%) (Auto) 9.0, Eosinophils (%) (Auto) 0.4, Basophils (%) (Auto) 1.1, Sodium Level 142, Potassium Level 5.6H, Chloride Level 101, Carbon Dioxide Level 25, Anion Gap 16H, Blood Urea Nitrogen 92H, Creatinine 7.3H , Estimat Glomerular Filtration Rate 7.6, Glucose Level 111H, Calcium Level 9.0 Height (Feet): 5 Height (Inches): 5.00 Weight (Pounds): 100 General Appearance: WD/WN, alert Neck: supple Cardiovascular: regular rhythm Respiratory/Chest: lungs clear Abdomen: normal bowel sounds, non tender, soft, no organomegaly Edema: no edema noted Arm (L), no edema noted Arm (R), no edema noted Leg (L), no edema noted Leg (R), no edema noted Pedal (L), no edema noted Pedal (R), no edema noted Generalized Neurologic: director 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
--- NOTE | 2016-07-20 13:06 | 48 Hour Post Anesthesia Eval ---
Post Anesthesia Evaluation Procedure: EGD Date of Evaluation: Jul 20, 2016 Time of Evaluation: 15:49 Blood Pressure Systolic: 101 0: 54 Pulse Rate: 78 Respiratory Rate: 18 Temperature (Fahrenheit): 98.6 O2 Sat by Pulse Oximetry: 99 Airway: patent Nausea: No Vomiting: No Pain Intensity: 2 Hydration Status: adequate Cardiopulmonary Status: Stable Mental Status/LOC: patient returned to baseline Follow-up Care/Observations: 0 Post-Anesthesia Complications: 0 Follow-up care needed: N/A Chun Lu MD Jul 20, 2016 13:06
[2016-07-20] MEDS ORDERED: Silver Nitrate Stick TOPIC ONE (14:00)
[2016-07-20] MEDS: Nephrovite tab ORAL SCH (14:00)
--- NOTE | 2016-07-20 17:38 | Consultation ---
DATE OF CONSULTATION: 07/19/2016 NEPHROLOGY CONSULTATION CONSULTING PHYSICIAN: Dylan Garcia M.D. REFERRING PHYSICIAN: Guillermo Galvez M.D. REASON FOR CONSULTATION: End-stage renal disease, requiring hemodialysis. HISTORY OF PRESENT ILLNESS: This is a 61-year-old male, who is known to me from previous admissions. The patient has a history of end-stage renal disease on hemodialysis every Wednesday, Wednesday, and Wednesday. He was admitted because of acute GI bleed. Apparently the patient had two days complaints of coffee-grounds emesis and melena. The patient was found to have a hemoglobin of 5.4 in the emergency room with hematocrit of 16.1. The patient has been transfused. The patient's hematocrit 24.2 today and hemoglobin of 8.3. The patient is supposed to go for an endoscopy by Dr. Luiz bowen. PAST MEDICAL HISTORY: Includes diabetes mellitus, diabetic gastroparesis, end-stage renal disease as mentioned, history of atrial fibrillation, hypertension, reported chronic obstructive pulmonary disease. MEDICATIONS: Reviewed in the EMR. SOCIAL HISTORY: No history of smoking or alcohol abuse. REVIEW OF SYSTEMS: As above. PHYSICAL EXAMINATION: GENERAL: The patient is an elderly male in no acute distress. VITAL SIGNS: Blood pressure 133/52, pulse 81, temperature 98.2. HEENT: Pale conjunctivae. Anicteric sclerae. NECK: Supple. LUNGS: Clear to auscultation. HEART: S1 and S2 without murmurs or rubs. ABDOMEN: Soft and nontender. EXTREMITIES: No cyanosis or edema. LABORATORY FINDINGS: Chemistry panel shows a serum sodium 142, potassium 5.6, chloride 101, CO2 25, BUN 92, creatinine 7.3. Calcium is 9. CBC shows a WBC of 5.2, hematocrit 24.2, hemoglobin 8.3, platelets 101,000. ASSESSMENT: This is a 61-year-old male, who has a history of end-stage renal disease, diabetes mellitus, hypertension, diabetic gastroparesis, reported history of atrial fibrillation admitted with acute gastrointestinal bleed. PLAN: I would hold off on dialysis for today because the blood pressure is somewhat on the lower side, now it dropped to 80 systolic. He is being transfused. Once his blood pressure is better, I will order dialysis hopefully tomorrow. The patient will be off blood pressure medication. Thank you very much, Dr. Galvez for this consultation. Dylan Garcia M.D. DR: Zak JOB#: [id number] CC:
[2016-07-20 19:12] LABS: MEAN CORPUSCULAR HEMOGLOBIN 30.2 PG (27.0-31.0); MEAN CORPUSCULAR HGB CONC 33.5 G/DL (32.0-36.0); MEAN CORPUSCULAR VOLUME 90 FL (80-99); MEAN PLATELET VOLUME 5.3 FL (6.5-10.1); PLATELET COUNT 93 K/UL (150-450); RED BLOOD COUNT 3.09 M/UL (4.70-6.10); RED CELL DISTRIBUTION WIDTH 13.7 % (11.6-14.8); WHITE BLOOD COUNT 7.8 K/UL (4.8-10.8)
[2016-07-20 19:52] LABS: ALBUMIN/GLOBULIN RATIO 2.6 (1.0-2.7); CALCIUM 8.9 mg/dL (8.6-10.2); CREATININE 7.9 mg/dL (0.7-1.2); POTASSIUM 5.4 mEQ/L (3.4-4.9); TOTAL PROTEIN 4.7 g/dL (6.6-8.7)
[2016-07-20 20:40] LABS: EOSINOPHILS % (MANUAL) 2 % (0-3); LYMPHOCYTES % (MANUAL) 20 % (20-45); NEUTROPHILS % (MANUAL) 74 % (45-75); TOTAL CELLS COUNTED 100
[2016-07-20 20:41] LABS: BAND NEUTROPHILS % (MANUAL) 0 % (0-8); BASOPHILS % (MANUAL) 0 % (0-2); PLATELET ESTIMATE DECREASED
[2016-07-20 20:42] LABS: ANISOCYTOSIS 1+; HYPOCHROMASIA 3+; PLATELET MORPHOLOGY NORMAL; POLYCHROMASIA 1+
[2016-07-20] MEDS ORDERED: Losartan 50mg tab ORAL SCH (21:00)
--- NOTE | 2016-07-20 22:01 | General Progress Note ---
Assessment/Plan Assessment/Plan Assessment - GJ tube migration - GT site bleeding - ESRD - anemia - hypotension - gastroparesis - cyclic vomiting Recommendations - NPO today --> clear tomorrow if stable - IVF per renal - PPI --> po (non-ulcer bleed) - monitor H&H Subjective Allergies: Coded Allergies: No Known Allergies (Unverified , 10/25/11) Subjective above noted seen earlier today in ICU (++) UGIB EGD RESULTS: - GJT tube migrated into esophagus, with tip near throat - GIB from GT tract --> cauterized - GJT replaced with simple G tube Objective Last 24 Hour Vital Signs Date Time Temp Pulse Resp B/P Pulse Ox O2 Delivery O2 Flow Rate FiO2 07/20/16 21:00 69 20 126/58 100 Nasal Cannula 2.0 07/20/16 20:00 98.2 78 18 139/53 100 Nasal Cannula 2.0 07/20/16 20:00 78 07/20/16 19:00 77 20 128/62 100 Nasal Cannula 2.0 07/20/16 18:00 81 16 132/53 100 Nasal Cannula 2.0 07/20/16 17:00 75 18 115/53 100 Nasal Cannula 2.0 07/20/16 16:00 85 07/20/16 16:00 98.1 84 18 152/58 100 Nasal Cannula 2.0 07/20/16 15:00 82 16 104/48 99 Nasal Cannula 2.0 07/20/16 14:00 84 16 117/60 99 Nasal Cannula 2.0 07/20/16 13:40 78 18 99 07/20/16 13:39 81 16 99 07/20/16 13:00 98.4 90 15 118/50 99 Room Air 07/20/16 12:00 88 07/20/16 12:00 89 15 87/43 99 Room Air 07/20/16 11:00 103 13 112/59 99 Room Air 07/20/16 10:00 84 12 80/40 99 Room Air 07/20/16 09:00 81 11 86/42 97 Room Air 07/20/16 09:00 133/52 07/20/16 08:00 98.9 83 13 139/61 99 Room Air 07/20/16 07:00 80 13 129/62 97 Room Air 07/20/16 06:00 83 12 117/52 97 Room Air 07/20/16 05:00 88 19 123/56 99 Room Air 07/20/16 04:00 98.4 82 14 118/55 98 Room Air 07/20/16 04:00 88 07/20/16 03:00 83 12 118/55 99 Room Air 07/20/16 02:00 84 17 110/51 100 Room Air 07/20/16 01:00 83 13 97/39 99 Room Air 07/20/16 00:00 87 07/20/16 00:00 98.7 87 17 102/42 99 Room Air 07/19/16 23:00 83 13 101/51 98 Room Air 07/19/16 22:00 93 21 132/53 99 Room Air Intake and Output 07/19/16 07/20/16 19:00 07:00 Intake Total 1125 ml Output Total 450 ml Balance 675 ml Intake Oral 0 ml IV Total 275 ml Blood Product 850 ml Output Urine Total 0 ml Emesis 450 ml # Bowel Movements 1 Laboratory Tests 07/20/16 00:00: White Blood Count 6.0, Red Blood Count 2.36L, Hemoglobin 7.5#L, Hematocrit 21.9# L, Mean Corpuscular Volume 93, Mean Corpuscular Hemoglobin 31.6H, Mean Corpuscular Hemoglobin Concent 34.0, Red Cell Distribution Width 13.3, Platelet Count 106L, Mean Platelet Volume 6.6, Neutrophils (%) (Auto) , Lymphocytes (%) ( Auto) , Monocytes (%) (Auto) , Eosinophils (%) (Auto) , Basophils (%) (Auto) , Differential Total Cells Counted 100, Neutrophils % (Manual) 70, Lymphocytes % ( Manual) 23, Monocytes % (Manual) 7, Eosinophils % (Manual) 0, Basophils % ( Manual) 0, Band Neutrophils 0, Platelet Estimate DecreasedL, Platelet Morphology Normal, Hypochromasia 3+, Spherocytes 2+ 07/20/16 04:00: White Blood Count 5.2, Red Blood Count 2.62L, Hemoglobin 8.3L, Hematocrit 24.2L , Mean Corpuscular Volume 92, Mean Corpuscular Hemoglobin 31.5H, Mean Corpuscular Hemoglobin Concent 34.1, Red Cell Distribution Width 13.5, Platelet Count 101L, Mean Platelet Volume 6.9, Neutrophils (%) (Auto) 69.5, Lymphocytes ( %) (Auto) 20.1, Monocytes (%) (Auto) 9.0, Eosinophils (%) (Auto) 0.4, Basophils (%) (Auto) 1.1, Sodium Level 142, Potassium Level 5.6H, Chloride Level 101, Carbon Dioxide Level 25, Anion Gap 16H, Blood Urea Nitrogen 92H, Creatinine 7.3H , Estimat Glomerular Filtration Rate 7.6, Glucose Level 111H, Calcium Level 9.0 07/20/16 19:00: White Blood Count 7.8, Red Blood Count 3.09L, Hemoglobin 9.3L, Hematocrit 27.9L , Mean Corpuscular Volume 90, Mean Corpuscular Hemoglobin 30.2, Mean Corpuscular Hemoglobin Concent 33.5, Red Cell Distribution Width 13.7, Platelet Count 93L, Mean Platelet Volume 5.3L, Neutrophils (%) (Auto) , Lymphocytes (%) ( Auto) , Monocytes (%) (Auto) , Eosinophils (%) (Auto) , Basophils (%) (Auto) , Differential Total Cells Counted 100, Neutrophils % (Manual) 74, Lymphocytes % ( Manual) 20, Monocytes % (Manual) 4, Eosinophils % (Manual) 2, Basophils % ( Manual) 0, Band Neutrophils 0, Platelet Estimate DecreasedL, Platelet Morphology Normal, Hypochromasia 3+, Sodium Level 143, Potassium Level 5.4H, Chloride Level 103, Carbon Dioxide Level 19L, Anion Gap 21H, Blood Urea Nitrogen 103H, Creatinine 7.9H, Estimat Glomerular Filtration Rate 7.0, Glucose Level 147H, Calcium Level 8.9, Polychromasia 1+, Anisocytosis 1+, Total Bilirubin 0.4, Aspartate Amino Transf (AST/SGOT) 41H, Alanine Aminotransferase ( ALT/SGPT) 28, Alkaline Phosphatase 74, Total Protein 4.7L, Albumin 3.4L, Globulin 1.3, Albumin/Globulin Ratio 2.6 Height (Feet): 5 Height (Inches): 5.00 Weight (Pounds): 100 Objective Thin AA man NCAT supple CTA RRR soft ND NT (+) feeding tube no edema non focal ISRAELRENAECRISTINEKAYDEN Jul 20, 2016 22:01
--- NOTE | 2016-07-20 22:03 | Pre-Procedure Note/Attestation ---
Pre-Procedure Note/Attestation Complete Prior to Procedure Planned Procedure: not applicable Procedure Narrative: EGD, control of bleeding, feeding tube replacement Indications for Procedure Pre-Operative Diagnosis: GIB Attestation I attest that I discussed the nature of the procedure; its benefits; risks and complications; and alternatives (and the risks and benefits of such alternatives ), prior to the procedure, with the patient (or the patient's legal manufacturer representative). I attest that, if there was a reasonable possibility of needing a blood transfusion, the patient (or the patient's legal manufacturer representative) was given the [facility] standardized written summary, pursuant to the [place] Blood Safety Act ([place] Health and Safety Code # 1645, as amended). I attest that I re-evaluated the patient just prior to the surgery and that there has been no change in the patient's H&P, except as documented below: KAYDEN MORALES Jul 20, 2016 22:03
--- NOTE | 2016-07-20 22:04 | Endoscopy Procedure Note ---
Endoscopy Procedure Note Indication for Procedure: ugib Procedures Performed: EGD Operative Findings/Diagnosis: GJT migration, gt tunnel bleed, Specimen: none Pt Tolerated Procedure Well: Yes Estimated Blood Loss: none Anesthesiologist: present Anesthesia: MAC Medication Given: see anesthesia record Implant(s) used?: No 50 yrs or older w/o bx or poly: Not Applicable 10yrs. F/U not recommended: Not Applicable If not recommended, why?: KAYDEN MORALES Jul 20, 2016 22:04
--- NOTE | 2016-07-20 22:07 | Brief Operative Note ---
Immediate Post Operative Note Operative Note Chief Complaint: ugib Pre-op Diagnosis: GIB Procedure: esophagogastroduodenoscopy gt change, cautery of Gt tract Post-op Diagnosis: EGD RESULTS: - GJT tube migrated into esophagus, with tip near throat - GIB from GT tract --> cauterized - GJT replaced with simple G tube Surgeon: kathy Anesthesiologist: see record Anesthesia: moderate sedation Specimen: none Complications: none Condition: stable Estimated Blood Loss: none Drains: none Implant(s) used?: No KAYDEN MORALES Jul 20, 2016 22:07
[2016-07-21] VITALS (21 sets, daily range): BP systolic 94–159; BP diastolic 33–65
--- NOTE | 2016-07-21 02:28 | Operative Note - Dictated ---
DATE OF OPERATION: 07/20/2016 NOTE: POOR AUDIO QUALITY GASTROENTEROLOGY PROCEDURE REPORT PROCEDURE: Upper gastrointestinal endoscopy with chemical cautery of bleeding gastrostomy tract as well as catheter removal and placement of the gastrostomy catheter. SURGEON: Royce Dee M.D. ANESTHESIA: Please see the separate anesthesiologist notes for details. DESCRIPTION OF PROCEDURE: The procedure, its risks, indications, alternatives, and possible complications were explained to the patient and informed consent was obtained. The patient was then sedated in supine position. A diagnostic upper endoscope was introduced through the oropharynx and advanced to the duodenum. The endoscope was then gradually withdrawn. The mucosa was examined carefully. Examination of the upper gastric mucosa revealed significantly jejunostomy tube into the esophagus was removed from the outside and the was noted to be partially filled with blood. The blood was all aspirated including blood clots procedure, no bleeding was identified except at the gastrostomy site appears to be blood. The gastrostomy tract outside and with good results gastrostomy catheter was then placed standard pull technique and the position was verified endoscopically. procedure, there was no active bleeding. The patient was sent to recovery in good condition. COMPLICATIONS: None. RECOMMENDATIONS: 1. Observe overnight. 2. Begin tube feedings tomorrow. Royce Dee M.D. DR: SAGAR JOB#: [id number] CC:
--- NOTE | 2016-07-21 02:49 | Progress Note ---
DATE: 07/20/2016 CARDIOLOGY PROGRESS NOTE SUBJECTIVE: The patient underwent an endoscopy today by Dr. Dee. Findings included migration of GJ tube in to the esophagus with associated gastrointestinal bleeding. Cauterization was performed with subsequent new G-tube placement. OBJECTIVE: VITAL SIGNS: Blood pressure 122/55, pulse 77, respirations 14, and afebrile. NECK: Supple. LUNGS: With good breath sounds. CARDIAC: Regular rhythm and rate. Normal S1 and S2. ABDOMEN: Soft. EXTREMITIES: With trace edema. LABORATORY DATA: Hemoglobin today is 7.5 following transfusion 8.3 and then 9.3 and platelet count is 93,000. BUN is 103 and creatinine is 7.9. IMPRESSION: 1. Recovering shock due to acute gastrointestinal bleed and acute blood loss. 2. End-stage renal disease. 3. Paroxysmal atrial fibrillation. 4. Hypertensive cardiomyopathy. 5. Insulin-requiring diabetes with complications including gastroparesis and prior GJ tube dependence. 6. Bifascicular heart block. PLAN: 1. Monitor hemoglobin. Transfuse if less than 8 g. 2. Hemodialysis with ultrafiltration. 3. Continue amiodarone. 4. Avoiding all anti-platelet and anticoagulant drugs. 5. Avoiding pressors for now as well with volume support. Remains critical and guarded. Christopher Muhammad M.D. DR: CHIQUITA JOB#: [id number] CC: RIGOBERTO
[2016-07-21 05:16] LABS: MEAN CORPUSCULAR HEMOGLOBIN 30.3 PG (27.0-31.0); MEAN CORPUSCULAR HGB CONC 33.6 G/DL (32.0-36.0); MEAN CORPUSCULAR VOLUME 90 FL (80-99); MEAN PLATELET VOLUME 6.2 FL (6.5-10.1); PLATELET COUNT 92 K/UL (150-450); RED BLOOD COUNT 2.98 M/UL (4.70-6.10); RED CELL DISTRIBUTION WIDTH 14.1 % (11.6-14.8); WHITE BLOOD COUNT 10.9 K/UL (4.8-10.8)
[2016-07-21 05:36] LABS: CALCIUM 9.2 mg/dL (8.6-10.2); CREATININE 8.5 mg/dL (0.7-1.2); GLOMERULAR FILTRATION RATE 6.4 mL/min (>60); PHOSPHORUS 5.5 mg/dL (2.5-4.8); POTASSIUM 5.4 mEQ/L (3.4-4.9)
[2016-07-21] MEDS: Levothyroxine 25mcg tab ORAL SCH (06:31)
[2016-07-21] MEDS: Nephrovite tab ORAL SCH (08:10)
[2016-07-21] MEDS: Amiodarone 200mg tab ORAL SCH (08:10)
[2016-07-21] MEDS: Brimonidine 0.2% Opth Sol RIGHT EYE SCH ×2 (08:11→18:00)
[2016-07-21] MEDS: Cosopt Opth Soln 10 mL Btl RIGHT EYE SCH ×2 (08:11→18:00)
[2016-07-21] MEDS: Pred Forte 1% Opth Susp 1ml RIGHT EYE SCH ×4 (08:12→21:00)
--- NOTE | 2016-07-21 12:57 | General Progress Note ---
Assessment/Plan Problem List: (1) Diabetic gastroparesis ICD Codes: E11.43 - Diabetic gastroparesis SNOMED: 53477654 (2) Anemia ICD Codes: D64.9 - Anemia SNOMED: 005794840 (3) INTRACTABLE VOMITING (4) ESRD (end stage renal disease) on dialysis ICD Codes: N18.6 - ESRD (end stage renal disease) on dialysis; Z99.2 - Dependence on renal dialysis SNOMED: 994500667 (5) Hypertension ICD Codes: I10 - Hypertension SNOMED: 87350405 (6) Gastrointestinal bleeding, upper ICD Codes: K92.2 - Upper gastrointestinal hemorrhage SNOMED: 68406896 Status: stable Assessment/Plan po protonix monitor h/h transfuse prn bp rx HD per renal guarded. stable for monitored bed Subjective ROS Limited/Unobtainable: No Constitutional: Reports: malaise, weakness HEENT: Reports: no symptoms Cardiovascular: Reports: no symptoms Respiratory: Reports: no symptoms Gastrointestinal/Abdominal: Reports: rectal bleeding, tarry stools, vomiting Genitourinary: Reports: no symptoms Neurologic/Psychiatric: Reports: no symptoms Endocrine: Reports: no symptoms Hematologic/Lymphatic: Reports: anemia Allergies: Coded Allergies: No Known Allergies (Unverified , 10/25/11) All Systems: reviewed and negative except above Subjective one small tarry stool. no hematemesis. no cp/sob. no fevers or chills. Objective Last 24 Hour Vital Signs Date Time Temp Pulse Resp B/P Pulse Ox O2 Delivery O2 Flow Rate FiO2 07/21/16 09:00 80 18 107/45 100 Nasal Cannula 2.0 07/21/16 08:26 100 Nasal Cannula 2.0 28 07/21/16 08:25 Nasal Cannula 2.0 07/21/16 08:00 98.6 84 19 121/65 100 Nasal Cannula 2.0 07/21/16 07:00 81 21 129/52 100 Nasal Cannula 2.0 07/21/16 06:00 80 20 116/56 100 Nasal Cannula 2.0 07/21/16 05:00 94 20 111/51 100 Nasal Cannula 2.0 07/21/16 04:00 98.0 92 20 111/51 100 Nasal Cannula 2.0 07/21/16 04:00 92 07/21/16 03:00 92 20 105/49 100 Nasal Cannula 2.0 07/21/16 02:00 78 20 107/44 100 Nasal Cannula 2.0 07/21/16 01:00 79 20 149/59 100 Nasal Cannula 2.0 07/21/16 00:00 97.7 81 20 159/63 100 Nasal Cannula 2.0 07/21/16 00:00 81 07/20/16 23:00 87 20 149/63 100 Nasal Cannula 2.0 07/20/16 22:00 77 14 122/55 100 Nasal Cannula 2.0 07/20/16 21:00 69 20 126/58 100 Nasal Cannula 2.0 07/20/16 20:00 98.2 78 18 139/53 100 Nasal Cannula 2.0 07/20/16 20:00 78 07/20/16 19:00 77 20 128/62 100 Nasal Cannula 2.0 07/20/16 18:00 81 16 132/53 100 Nasal Cannula 2.0 07/20/16 17:00 75 18 115/53 100 Nasal Cannula 2.0 07/20/16 16:00 85 07/20/16 16:00 98.1 84 18 152/58 100 Nasal Cannula 2.0 07/20/16 15:00 82 16 104/48 99 Nasal Cannula 2.0 07/20/16 14:00 84 16 117/60 99 Nasal Cannula 2.0 07/20/16 13:40 78 18 99 07/20/16 13:39 81 16 99 07/20/16 13:00 98.4 90 15 118/50 99 Room Air Intake and Output 07/20/16 07/21/16 19:00 07:00 Intake Total 525 ml 225 ml Output Total 700 ml 0 ml Balance -175 ml 225 ml Intake Oral 0 ml 150 ml IV Total 275 ml 75 ml Blood Product 250 ml Emesis 700 ml 0 ml # Bowel Movements 6 6 Laboratory Tests 07/20/16 19:00: White Blood Count 7.8, Red Blood Count 3.09L, Hemoglobin 9.3L, Hematocrit 27.9L , Mean Corpuscular Volume 90, Mean Corpuscular Hemoglobin 30.2, Mean Corpuscular Hemoglobin Concent 33.5, Red Cell Distribution Width 13.7, Platelet Count 93L, Mean Platelet Volume 5.3L, Neutrophils (%) (Auto) , Lymphocytes (%) ( Auto) , Monocytes (%) (Auto) , Eosinophils (%) (Auto) , Basophils (%) (Auto) , Differential Total Cells Counted 100, Neutrophils % (Manual) 74, Lymphocytes % ( Manual) 20, Monocytes % (Manual) 4, Eosinophils % (Manual) 2, Basophils % ( Manual) 0, Band Neutrophils 0, Platelet Estimate DecreasedL, Platelet Morphology Normal, Polychromasia 1+, Hypochromasia 3+, Anisocytosis 1+, Sodium Level 143, Potassium Level 5.4H, Chloride Level 103, Carbon Dioxide Level 19L, Anion Gap 21H, Blood Urea Nitrogen 103H, Creatinine 7.9H, Estimat Glomerular Filtration Rate 7.0, Glucose Level 147H, Calcium Level 8.9, Total Bilirubin 0.4 , Aspartate Amino Transf (AST/SGOT) 41H, Alanine Aminotransferase (ALT/SGPT) 28 , Alkaline Phosphatase 74, Total Protein 4.7L, Albumin 3.4L, Globulin 1.3, Albumin/Globulin Ratio 2.6 07/21/16 04:50: White Blood Count 10.9H, Red Blood Count 2.98L, Hemoglobin 9.0L, Hematocrit 26.8L, Mean Corpuscular Volume 90, Mean Corpuscular Hemoglobin 30.3, Mean Corpuscular Hemoglobin Concent 33.6, Red Cell Distribution Width 14.1, Platelet Count 92L, Mean Platelet Volume 6.2L, Neutrophils (%) (Auto) , Lymphocytes (%) ( Auto) , Monocytes (%) (Auto) , Eosinophils (%) (Auto) , Basophils (%) (Auto) , Sodium Level 143, Potassium Level 5.4H, Chloride Level 102, Carbon Dioxide Level 16L, Anion Gap 25H, Blood Urea Nitrogen 104H, Creatinine 8.5H, Estimat Glomerular Filtration Rate 6.4, Glucose Level 93, Calcium Level 9.2, Phosphorus Level 5.5H, Magnesium Level 3.1H Height (Feet): 5 Height (Inches): 5.00 Weight (Pounds): 100 Objective General Appearance: WD/WN, alert Neck: supple Cardiovascular: regular rhythm Respiratory/Chest: lungs clear Abdomen: normal bowel sounds, non tender, soft, no organomegaly Edema: no edema noted Arm (L), no edema noted Arm (R), no edema noted Leg (L), no edema noted Leg (R), no edema noted Pedal (L), no edema noted Pedal (R), no edema noted Generalized Neurologic: case fitter II-XII grossly normal, no motor/sensory deficits, abnormal gait , alert, oriented x 3, responsive MATTHEW FERRARO Jul 21, 2016 12:57
[2016-07-21 13:47] LABS: OTHERS PATHOLOGIST COMMENT
--- NOTE | 2016-07-21 15:30 | Nephrology Progress Note ---
Assessment/Plan Problem List: (1) ESRD (end stage renal disease) on dialysis (2) DM (diabetes mellitus) (3) HTN (hypertension) (4) Gastroparesis (5) Gastrointestinal bleeding, upper Assessment hemodynamically more stable Plan HD as tolerated Discussed with HD RN follow H/H Subjective Subjective PT was seen during dialysis in ICU Objective Objective Last 24 Hour Vital Signs Date Time Temp Pulse Resp B/P Pulse Ox O2 Delivery O2 Flow Rate FiO2 07/21/16 15:00 79 16 104/44 100 Nasal Cannula 2.0 07/21/16 14:00 75 15 111/44 100 Nasal Cannula 2.0 07/21/16 13:00 81 18 106/47 100 Nasal Cannula 2.0 07/21/16 12:45 Nasal Cannula 2.0 100 07/21/16 12:00 83 07/21/16 12:00 98.3 79 11 94/33 100 Nasal Cannula 2.0 07/21/16 11:00 79 11 111/38 100 Nasal Cannula 2.0 07/21/16 10:00 80 18 147/52 100 Nasal Cannula 2.0 07/21/16 09:00 80 18 107/45 100 Nasal Cannula 2.0 07/21/16 08:26 100 Nasal Cannula 2.0 28 07/21/16 08:25 Nasal Cannula 2.0 28 07/21/16 08:00 84 07/21/16 08:00 98.6 84 19 121/65 100 Nasal Cannula 2.0 07/21/16 07:00 81 21 129/52 100 Nasal Cannula 2.0 07/21/16 06:00 80 20 116/56 100 Nasal Cannula 2.0 07/21/16 05:00 94 20 111/51 100 Nasal Cannula 2.0 07/21/16 04:00 98.0 92 20 111/51 100 Nasal Cannula 2.0 07/21/16 04:00 92 07/21/16 03:00 92 20 105/49 100 Nasal Cannula 2.0 07/21/16 02:00 78 20 107/44 100 Nasal Cannula 2.0 07/21/16 01:00 79 20 149/59 100 Nasal Cannula 2.0 07/21/16 00:00 97.7 81 20 159/63 100 Nasal Cannula 2.0 07/21/16 00:00 81 07/20/16 23:00 87 20 149/63 100 Nasal Cannula 2.0 07/20/16 22:00 77 14 122/55 100 Nasal Cannula 2.0 07/20/16 21:00 69 20 126/58 100 Nasal Cannula 2.0 07/20/16 20:00 98.2 78 18 139/53 100 Nasal Cannula 2.0 07/20/16 20:00 78 07/20/16 19:00 77 20 128/62 100 Nasal Cannula 2.0 07/20/16 18:00 81 16 132/53 100 Nasal Cannula 2.0 07/20/16 17:00 75 18 115/53 100 Nasal Cannula 2.0 07/20/16 16:00 85 07/20/16 16:00 98.1 84 18 152/58 100 Nasal Cannula 2.0 Intake and Output 07/20/16 07/21/16 19:00 07:00 Intake Total 525 ml 225 ml Output Total 700 ml 0 ml Balance -175 ml 225 ml Intake Oral 0 ml 150 ml IV Total 275 ml 75 ml Blood Product 250 ml Emesis 700 ml 0 ml # Bowel Movements 6 6 Laboratory Tests 07/20/16 19:00: White Blood Count 7.8, Red Blood Count 3.09L, Hemoglobin 9.3L, Hematocrit 27.9L , Mean Corpuscular Volume 90, Mean Corpuscular Hemoglobin 30.2, Mean Corpuscular Hemoglobin Concent 33.5, Red Cell Distribution Width 13.7, Platelet Count 93L, Mean Platelet Volume 5.3L, Neutrophils (%) (Auto) , Lymphocytes (%) ( Auto) , Monocytes (%) (Auto) , Eosinophils (%) (Auto) , Basophils (%) (Auto) , Differential Total Cells Counted 100, Neutrophils % (Manual) 74, Lymphocytes % ( Manual) 20, Monocytes % (Manual) 4, Eosinophils % (Manual) 2, Basophils % ( Manual) 0, Band Neutrophils 0, Platelet Estimate DecreasedL, Platelet Morphology Normal, Polychromasia 1+, Hypochromasia 3+, Anisocytosis 1+, Sodium Level 143, Potassium Level 5.4H, Chloride Level 103, Carbon Dioxide Level 19L, Anion Gap 21H, Blood Urea Nitrogen 103H, Creatinine 7.9H, Estimat Glomerular Filtration Rate 7.0, Glucose Level 147H, Calcium Level 8.9, Total Bilirubin 0.4 , Aspartate Amino Transf (AST/SGOT) 41H, Alanine Aminotransferase (ALT/SGPT) 28 , Alkaline Phosphatase 74, Total Protein 4.7L, Albumin 3.4L, Globulin 1.3, Albumin/Globulin Ratio 2.6 07/21/16 04:50: White Blood Count 10.9H, Red Blood Count 2.98L, Hemoglobin 9.0L, Hematocrit 26.8L, Mean Corpuscular Volume 90, Mean Corpuscular Hemoglobin 30.3, Mean Corpuscular Hemoglobin Concent 33.6, Red Cell Distribution Width 14.1, Platelet Count 92L, Mean Platelet Volume 6.2L, Neutrophils (%) (Auto) , Lymphocytes (%) ( Auto) , Monocytes (%) (Auto) , Eosinophils (%) (Auto) , Basophils (%) (Auto) , Sodium Level 143, Potassium Level 5.4H, Chloride Level 102, Carbon Dioxide Level 16L, Anion Gap 25H, Blood Urea Nitrogen 104H, Creatinine 8.5H, Estimat Glomerular Filtration Rate 6.4, Glucose Level 93, Calcium Level 9.2, Phosphorus Level 5.5H, Magnesium Level 3.1H Height (Feet): 5 Height (Inches): 5.00 Weight (Pounds): 100 Cardiovascular: normal rate Respiratory/Chest: lungs clear Extremities: other - no edema ROLAND FOX Jul 21, 2016 15:30
--- NOTE | 2016-07-21 17:02 | General Progress Note ---
Assessment/Plan Assessment/Plan Assessment - GJ tube migration --> changed - GT site bleeding - ESRD - anemia - hypotension - gastroparesis - cyclic vomiting Recommendations - Begin GT feeding - PPI --> po (non-ulcer bleed) - monitor H&H Subjective Allergies: Coded Allergies: No Known Allergies (Unverified , 10/25/11) Subjective Better stopped bleeding no abd pain Objective Last 24 Hour Vital Signs Date Time Temp Pulse Resp B/P Pulse Ox O2 Delivery O2 Flow Rate FiO2 07/21/16 16:14 Nasal Cannula 07/21/16 15:00 79 16 104/44 100 Nasal Cannula 2.0 07/21/16 14:00 75 15 111/44 100 Nasal Cannula 2.0 07/21/16 13:00 81 18 106/47 100 Nasal Cannula 2.0 07/21/16 12:45 Nasal Cannula 2.0 100 07/21/16 12:00 83 07/21/16 12:00 98.3 79 11 94/33 100 Nasal Cannula 2.0 07/21/16 11:00 79 11 111/38 100 Nasal Cannula 2.0 07/21/16 10:00 80 18 147/52 100 Nasal Cannula 2.0 07/21/16 09:00 80 18 107/45 100 Nasal Cannula 2.0 07/21/16 08:26 100 Nasal Cannula 2.0 28 07/21/16 08:25 Nasal Cannula 2.0 28 07/21/16 08:00 84 07/21/16 08:00 98.6 84 19 121/65 100 Nasal Cannula 2.0 07/21/16 07:00 81 21 129/52 100 Nasal Cannula 2.0 07/21/16 06:00 80 20 116/56 100 Nasal Cannula 2.0 07/21/16 05:00 94 20 111/51 100 Nasal Cannula 2.0 07/21/16 04:00 98.0 92 20 111/51 100 Nasal Cannula 2.0 07/21/16 04:00 92 07/21/16 03:00 92 20 105/49 100 Nasal Cannula 2.0 07/21/16 02:00 78 20 107/44 100 Nasal Cannula 2.0 07/21/16 01:00 79 20 149/59 100 Nasal Cannula 2.0 07/21/16 00:00 97.7 81 20 159/63 100 Nasal Cannula 2.0 07/21/16 00:00 81 07/20/16 23:00 87 20 149/63 100 Nasal Cannula 2.0 07/20/16 22:00 77 14 122/55 100 Nasal Cannula 2.0 07/20/16 21:00 69 20 126/58 100 Nasal Cannula 2.0 07/20/16 20:00 98.2 78 18 139/53 100 Nasal Cannula 2.0 07/20/16 20:00 78 07/20/16 19:00 77 20 128/62 100 Nasal Cannula 2.0 07/20/16 18:00 81 16 132/53 100 Nasal Cannula 2.0 Intake and Output 07/20/16 07/21/16 19:00 07:00 Intake Total 525 ml 225 ml Output Total 700 ml 0 ml Balance -175 ml 225 ml Intake Oral 0 ml 150 ml IV Total 275 ml 75 ml Blood Product 250 ml Emesis 700 ml 0 ml # Bowel Movements 6 6 Laboratory Tests 07/20/16 19:00: White Blood Count 7.8, Red Blood Count 3.09L, Hemoglobin 9.3L, Hematocrit 27.9L , Mean Corpuscular Volume 90, Mean Corpuscular Hemoglobin 30.2, Mean Corpuscular Hemoglobin Concent 33.5, Red Cell Distribution Width 13.7, Platelet Count 93L, Mean Platelet Volume 5.3L, Neutrophils (%) (Auto) , Lymphocytes (%) ( Auto) , Monocytes (%) (Auto) , Eosinophils (%) (Auto) , Basophils (%) (Auto) , Differential Total Cells Counted 100, Neutrophils % (Manual) 74, Lymphocytes % ( Manual) 20, Monocytes % (Manual) 4, Eosinophils % (Manual) 2, Basophils % ( Manual) 0, Band Neutrophils 0, Platelet Estimate DecreasedL, Platelet Morphology Normal, Polychromasia 1+, Hypochromasia 3+, Anisocytosis 1+, Sodium Level 143, Potassium Level 5.4H, Chloride Level 103, Carbon Dioxide Level 19L, Anion Gap 21H, Blood Urea Nitrogen 103H, Creatinine 7.9H, Estimat Glomerular Filtration Rate 7.0, Glucose Level 147H, Calcium Level 8.9, Total Bilirubin 0.4 , Aspartate Amino Transf (AST/SGOT) 41H, Alanine Aminotransferase (ALT/SGPT) 28 , Alkaline Phosphatase 74, Total Protein 4.7L, Albumin 3.4L, Globulin 1.3, Albumin/Globulin Ratio 2.6 07/21/16 04:50: White Blood Count 10.9H, Red Blood Count 2.98L, Hemoglobin 9.0L, Hematocrit 26.8L, Mean Corpuscular Volume 90, Mean Corpuscular Hemoglobin 30.3, Mean Corpuscular Hemoglobin Concent 33.6, Red Cell Distribution Width 14.1, Platelet Count 92L, Mean Platelet Volume 6.2L, Neutrophils (%) (Auto) , Lymphocytes (%) ( Auto) , Monocytes (%) (Auto) , Eosinophils (%) (Auto) , Basophils (%) (Auto) , Sodium Level 143, Potassium Level 5.4H, Chloride Level 102, Carbon Dioxide Level 16L, Anion Gap 25H, Blood Urea Nitrogen 104H, Creatinine 8.5H, Estimat Glomerular Filtration Rate 6.4, Glucose Level 93, Calcium Level 9.2, Phosphorus Level 5.5H, Magnesium Level 3.1H Height (Feet): 5 Height (Inches): 5.00 Weight (Pounds): 100 Objective Thin AA man NCAT supple CTA RRR soft ND NT (+) feeding tube no edema non focal KAYDEN MORALES Jul 21, 2016 17:02
[2016-07-21 17:07] LABS: MEAN CORPUSCULAR HEMOGLOBIN 31.3 PG (27.0-31.0); MEAN CORPUSCULAR HGB CONC 35.6 G/DL (32.0-36.0); MEAN CORPUSCULAR VOLUME 88 FL (80-99); MEAN PLATELET VOLUME 6.2 FL (6.5-10.1); PLATELET COUNT 82 K/UL (150-450); RED BLOOD COUNT 2.43 M/UL (4.70-6.10); RED CELL DISTRIBUTION WIDTH 13.6 % (11.6-14.8)
[2016-07-21 19:32] LABS: BAND NEUTROPHILS % (MANUAL) 0 % (0-8); BASOPHILS % (MANUAL) 0 % (0-2); EOSINOPHILS % (MANUAL) 0 % (0-3); LYMPHOCYTES % (MANUAL) 4 % (20-45); NEUTROPHILS % (MANUAL) 86 % (45-75); PLATELET ESTIMATE ADEQUATE; TOTAL CELLS COUNTED 100
[2016-07-21 19:33] LABS: PLATELET MORPHOLOGY NORMAL
[2016-07-22] VITALS: BP 125/59
[2016-07-22 04:00] VITALS: BP 102/48
[2016-07-22 05:36] LABS: MEAN CORPUSCULAR HEMOGLOBIN 30.8 PG (27.0-31.0); MEAN CORPUSCULAR VOLUME 91 FL (80-99); MEAN PLATELET VOLUME 7.3 FL (6.5-10.1); PLATELET COUNT 88 K/UL (150-450); RED BLOOD COUNT 2.58 M/UL (4.70-6.10); RED CELL DISTRIBUTION WIDTH 14.6 % (11.6-14.8); WHITE BLOOD COUNT 5.6 K/UL (4.8-10.8)
--- NOTE | 2016-07-22 06:09 | Progress Note ---
DATE: 07/21/2016 CARDIOLOGY PROGRESS NOTE SUBJECTIVE: The patient has not had any new overt bleeding. His hemoglobin continues to drop and he requires transfusions; however, he is status post hemodialysis. He had one small tarry stool. Monitored rhythm sinus with frequent atrial ectopy. OBJECTIVE: VITAL SIGNS: Blood pressure 111/51, pulse 94, and respiratory rate 20. NECK: Supple. LUNGS: Clear. CARDIAC: Regular rhythm and rate. Normal S1 and S2 with 1/6 systolic murmur at the base. ABDOMEN: Soft. No focal tenderness. G-tube is intact. EXTREMITIES: Without edema. IMPRESSION: 1. Acute gastrointestinal bleeding. 2. Recovering shock. 3. GJ tube migration. 4. Gastroparesis. 5. End-stage renal disease. 6. Paroxysmal atrial fibrillation. 7. Hypertensive cardiomyopathy. 8. Bifascicular heart block. PLAN: 1. Transfuse for dropping hemoglobin below 8. 2. Continue vitamin supplements. 3. Maintain amiodarone for arrhythmia suppression. 4. Remain off anti-platelet and anticoagulants for now. 5. No current need for pressors. 6. Hemodialysis with limited ultrafiltration at this time. Christopher Muhammad M.D. DR: MADALYN JOB#: [id number] CC: RIGOBERTO
[2016-07-22] MEDS: Levothyroxine 25mcg tab ORAL SCH (06:13)
[2016-07-22 08:00] VITALS: BP 128/63
[2016-07-22] MEDS: Amiodarone 200mg tab ORAL SCH (09:05)
[2016-07-22] MEDS: Cosopt Opth Soln 10 mL Btl RIGHT EYE SCH ×2 (09:06→17:40)
[2016-07-22] MEDS: Brimonidine 0.2% Opth Sol RIGHT EYE SCH ×2 (09:06→17:41)
[2016-07-22] MEDS: Pred Forte 1% Opth Susp 1ml RIGHT EYE SCH ×4 (09:07→20:13)
[2016-07-22] MEDS: Nephrovite tab ORAL SCH (09:17)
[2016-07-22 12:00] VITALS: BP 105/42
[2016-07-22 15:39] VITALS: BP 122/61
[2016-07-22 19:00] VITALS: BP 113/45
--- NOTE | 2016-07-22 21:39 | General Progress Note ---
Assessment/Plan Assessment/Plan Assessment - GJ tube migration --> changed - GT site bleeding - ESRD - anemia - hypotension - gastroparesis - cyclic vomiting Recommendations - Advance GT feeding - PPI --> po (non-ulcer bleed) - monitor H&H Subjective Allergies: Coded Allergies: No Known Allergies (Unverified , 10/25/11) Subjective Better stopped bleeding no abd pain tolerating GT feeds Objective Last 24 Hour Vital Signs Date Time Temp Pulse Resp B/P Pulse Ox O2 Delivery O2 Flow Rate FiO2 07/22/16 20:00 65 07/22/16 19:00 98.1 66 20 113/45 100 Nasal Cannula 2.0 07/22/16 16:00 74 07/22/16 15:39 98.1 71 20 122/61 97 Nasal Cannula 2.0 07/22/16 12:00 98.1 68 19 105/42 98 Nasal Cannula 2.0 07/22/16 12:00 67 07/22/16 08:00 98.0 78 19 128/63 98 Nasal Cannula 2.0 07/22/16 08:00 80 07/22/16 04:00 68 07/22/16 04:00 97.1 96 18 102/48 100 Nasal Cannula 2.0 07/22/16 00:00 70 07/22/16 00:00 98.2 75 18 125/59 100 Nasal Cannula 2.0 Intake and Output 07/21/16 07/22/16 19:00 07:00 Intake Total 210 ml 270 ml Output Total 1000 ml 50 ml Balance -790 ml 220 ml Free Water 60 ml Tube Feeding 150 ml 270 ml Emesis 0 ml 50 ml Hemodialysis UF 1000 ml # Bowel Movements 6 2 Laboratory Tests 07/22/16 04:00: White Blood Count 5.6, Red Blood Count 2.58L, Hemoglobin 7.9L, Hematocrit 23.4L , Mean Corpuscular Volume 91, Mean Corpuscular Hemoglobin 30.8, Mean Corpuscular Hemoglobin Concent 34.0, Red Cell Distribution Width 14.6, Platelet Count 88L, Mean Platelet Volume 7.3, Neutrophils (%) (Auto) , Lymphocytes (%) ( Auto) , Monocytes (%) (Auto) , Eosinophils (%) (Auto) , Basophils (%) (Auto) Height (Feet): 5 Height (Inches): 5.00 Weight (Pounds): 100 Objective Thin AA man NCAT supple CTA RRR soft ND NT (+) feeding tube no edema non focal KAYDEN MORALES Jul 22, 2016 21:39
[2016-07-22] MEDS ORDERED: Tubing IV Secondary IV ONE (22:27)
[2016-07-22] MEDS ORDERED: NS 550ML IV ONE (22:27)
[2016-07-22] MEDS ORDERED: NS 275ml ONE ×2 (22:27→22:31)
[2016-07-22] MEDS ORDERED: Tubing Blood Filter IV ONE (22:27)
[2016-07-22] MEDS ORDERED: D5W 275ml ONE (22:27)
[2016-07-23] VITALS: BP 139/61
--- NOTE | 2016-07-23 01:18 | Progress Note ---
DATE: 07/22/2016 CARDIOLOGY PROGRESS NOTE SUBJECTIVE: The patient has not had any new bleeding. He is tolerating feedings. He is off pressors. Monitored sinus. OBJECTIVE: Blood pressure 113/45, pulse 66, and respirations 20. NECK: Supple. LUNGS: Clear. CARDIAC: Regular rhythm and rate. Normal S1 and S2. ABDOMEN: Soft. G-tube intact. EXTREMITIES: Trace edema. LABORATORY DATA: White count 5.6 and hemoglobin 7.9. Magnesium is 3.1. Potassium is 5.4. IMPRESSION: 1. Acute gastrointestinal bleed resolved. 2. Hypovolemic shock due to acute blood loss stabilizing slowly. 3. Severe anemia status post transfusions. 4. Paroxysmal atrial fibrillation suppressed with amiodarone. 5. Cardiomyopathy with compensated congestive heart failure at this time. 6. End-stage renal disease on hemodialysis. 7. Conduction system disease of the heart. PLAN: 1. Plan of care in place. 2. Further recommendations to follow, based on clinical parameters. Christopher Muhammad M.D. DR: CHIQUITA JOB#: [id number] CC: RIGOBERTO
[2016-07-23 04:00] VITALS: BP 128/57
[2016-07-23] MEDS: Levothyroxine 25mcg tab ORAL SCH (05:51)
[2016-07-23 06:17] LABS: MEAN CORPUSCULAR HEMOGLOBIN 30.8 PG (27.0-31.0); MEAN CORPUSCULAR HGB CONC 34.2 G/DL (32.0-36.0); MEAN CORPUSCULAR VOLUME 90 FL (80-99); MEAN PLATELET VOLUME 7.5 FL (6.5-10.1); PLATELET COUNT 72 K/UL (150-450); RED BLOOD COUNT 2.98 M/UL (4.70-6.10); RED CELL DISTRIBUTION WIDTH 14.7 % (11.6-14.8); WHITE BLOOD COUNT 5.6 K/UL (4.8-10.8)
[2016-07-23 06:32] LABS: CALCIUM 9.4 mg/dL (8.6-10.2); CREATININE 6.3 mg/dL (0.7-1.2); GLOMERULAR FILTRATION RATE 9.1 mL/min (>60); POTASSIUM 4.6 mEQ/L (3.4-4.9)
[2016-07-23 07:27] LABS: ANISOCYTOSIS 1+; BAND NEUTROPHILS % (MANUAL) 0 % (0-8); BASOPHILS % (MANUAL) 1 % (0-2); EOSINOPHILS % (MANUAL) 3 % (0-3); HYPOCHROMASIA 2+; LYMPHOCYTES % (MANUAL) 15 % (20-45); NEUTROPHILS % (MANUAL) 76 % (45-75); PLATELET ESTIMATE DECREASED; PLATELET MORPHOLOGY NORMAL; SPHEROCYTES 1+; TOTAL CELLS COUNTED 100
[2016-07-23 08:00] VITALS: BP 132/57
[2016-07-23] MEDS: Brimonidine 0.2% Opth Sol RIGHT EYE SCH ×2 (08:53→18:00)
[2016-07-23] MEDS: Cosopt Opth Soln 10 mL Btl RIGHT EYE SCH ×2 (08:53→18:35)
[2016-07-23] MEDS: Pred Forte 1% Opth Susp 1ml RIGHT EYE SCH ×4 (08:53→22:44)
[2016-07-23] MEDS: Nephrovite tab ORAL SCH (08:54)
[2016-07-23] MEDS: Amiodarone 200mg tab ORAL SCH (08:54)
[2016-07-23] MEDS ORDERED: Metoclopramide 10mg/2ml Inj IVP PRN (09:00)
--- NOTE | 2016-07-23 09:52 | General Progress Note ---
Assessment/Plan Assessment/Plan Assessment - GJ tube migration --> changed - GT site bleeding --> resolved - ESRD - anemia - hypotension - gastroparesis - cyclic vomiting Recommendations - Advance GT feeding - PPI --> po (non-ulcer bleed) - monitor H&H Subjective Allergies: Coded Allergies: No Known Allergies (Unverified , 10/25/11) Subjective some nausea no vomiting tolerating GT feeds Objective Last 24 Hour Vital Signs Date Time Temp Pulse Resp B/P Pulse Ox O2 Delivery O2 Flow Rate FiO2 07/23/16 08:00 98.1 76 20 132/57 99 Room Air 07/23/16 08:00 76 07/23/16 04:00 97.9 73 20 128/57 99 Room Air 07/23/16 03:33 65 07/23/16 00:00 65 07/23/16 00:00 98.1 70 20 139/61 97 Room Air 07/22/16 20:00 65 07/22/16 19:00 98.1 66 20 113/45 100 Nasal Cannula 2.0 07/22/16 16:00 74 07/22/16 15:39 98.1 71 20 122/61 97 Nasal Cannula 2.0 07/22/16 12:00 98.1 68 19 105/42 98 Nasal Cannula 2.0 07/22/16 12:00 67 Intake and Output 07/22/16 07/23/16 19:00 07:00 Intake Total 675 ml 390 ml Balance 675 ml 390 ml Intake Oral 50 ml 50 ml Free Water 50 ml Tube Feeding 275 ml 340 ml Blood Product 300 ml # Voids 1 # Bowel Movements 3 5 Laboratory Tests 07/23/16 04:00: White Blood Count 5.6, Red Blood Count 2.98L, Hemoglobin 9.2L, Hematocrit 26.9L , Mean Corpuscular Volume 90, Mean Corpuscular Hemoglobin 30.8, Mean Corpuscular Hemoglobin Concent 34.2, Red Cell Distribution Width 14.7, Platelet Count 72L, Mean Platelet Volume 7.5, Neutrophils (%) (Auto) , Lymphocytes (%) ( Auto) , Monocytes (%) (Auto) , Eosinophils (%) (Auto) , Basophils (%) (Auto) , Differential Total Cells Counted 100, Neutrophils % (Manual) 76H, Lymphocytes % (Manual) 15L, Monocytes % (Manual) 5, Eosinophils % (Manual) 3, Basophils % ( Manual) 1, Band Neutrophils 0, Platelet Estimate DecreasedL, Platelet Morphology Normal, Hypochromasia 2+, Anisocytosis 1+, Spherocytes 1+, Sodium Level 141, Potassium Level 4.6, Chloride Level 98, Carbon Dioxide Level 31H, Anion Gap 12, Blood Urea Nitrogen 49H, Creatinine 6.3H, Estimat Glomerular Filtration Rate 9.1, Glucose Level 185H, Calcium Level 9.4 Height (Feet): 5 Height (Inches): 5.00 Weight (Pounds): 100 Objective Thin AA man NCAT supple CTA RRR soft ND NT (+) feeding tube no edema non focal KAYDEN MORALES Jul 23, 2016 09:52
--- NOTE | 2016-07-23 10:34 | General Progress Note ---
Assessment/Plan Problem List: (1) Diabetic gastroparesis ICD Codes: E11.43 - Diabetic gastroparesis SNOMED: 03131891 (2) Anemia ICD Codes: D64.9 - Anemia SNOMED: 726085692 (3) INTRACTABLE VOMITING (4) ESRD (end stage renal disease) on dialysis ICD Codes: N18.6 - ESRD (end stage renal disease) on dialysis; Z99.2 - Dependence on renal dialysis SNOMED: 663832034 (5) Hypertension ICD Codes: I10 - Hypertension SNOMED: 92957387 (6) Gastrointestinal bleeding, upper ICD Codes: K92.2 - Upper gastrointestinal hemorrhage SNOMED: 70227064 Status: stable Assessment/Plan po protonix monitor h/h antiemetics feeds when cleared by gi transfuse prn bp rx HD per renal guarded. stable for monitored bed Subjective ROS Limited/Unobtainable: No Constitutional: Reports: malaise, weakness HEENT: Reports: no symptoms Cardiovascular: Reports: no symptoms Respiratory: Reports: no symptoms Gastrointestinal/Abdominal: Reports: blood in stool, vomiting Genitourinary: Reports: no symptoms Neurologic/Psychiatric: Reports: pre-existing deficit Endocrine: Reports: no symptoms Hematologic/Lymphatic: Reports: anemia Allergies: Coded Allergies: No Known Allergies (Unverified , 10/25/11) All Systems: reviewed and negative except above Subjective no bleeding. vomiting again. no hematemesis. hgb stable. Objective Last 24 Hour Vital Signs Date Time Temp Pulse Resp B/P Pulse Ox O2 Delivery O2 Flow Rate FiO2 07/23/16 08:00 98.1 76 20 132/57 99 Room Air 07/23/16 08:00 76 07/23/16 04:00 97.9 73 20 128/57 99 Room Air 07/23/16 03:33 65 07/23/16 00:00 65 07/23/16 00:00 98.1 70 20 139/61 97 Room Air 07/22/16 20:00 65 07/22/16 19:00 98.1 66 20 113/45 100 Nasal Cannula 2.0 07/22/16 16:00 74 07/22/16 15:39 98.1 71 20 122/61 97 Nasal Cannula 2.0 07/22/16 12:00 98.1 68 19 105/42 98 Nasal Cannula 2.0 07/22/16 12:00 67 Intake and Output 07/22/16 07/23/16 19:00 07:00 Intake Total 675 ml 390 ml Balance 675 ml 390 ml Intake Oral 50 ml 50 ml Free Water 50 ml Tube Feeding 275 ml 340 ml Blood Product 300 ml # Voids 1 # Bowel Movements 3 5 Laboratory Tests 07/23/16 04:00: White Blood Count 5.6, Red Blood Count 2.98L, Hemoglobin 9.2L, Hematocrit 26.9L , Mean Corpuscular Volume 90, Mean Corpuscular Hemoglobin 30.8, Mean Corpuscular Hemoglobin Concent 34.2, Red Cell Distribution Width 14.7, Platelet Count 72L, Mean Platelet Volume 7.5, Neutrophils (%) (Auto) , Lymphocytes (%) ( Auto) , Monocytes (%) (Auto) , Eosinophils (%) (Auto) , Basophils (%) (Auto) , Differential Total Cells Counted 100, Neutrophils % (Manual) 76H, Lymphocytes % (Manual) 15L, Monocytes % (Manual) 5, Eosinophils % (Manual) 3, Basophils % ( Manual) 1, Band Neutrophils 0, Platelet Estimate DecreasedL, Platelet Morphology Normal, Hypochromasia 2+, Anisocytosis 1+, Spherocytes 1+, Sodium Level 141, Potassium Level 4.6, Chloride Level 98, Carbon Dioxide Level 31H, Anion Gap 12, Blood Urea Nitrogen 49H, Creatinine 6.3H, Estimat Glomerular Filtration Rate 9.1, Glucose Level 185H, Calcium Level 9.4 Height (Feet): 5 Height (Inches): 5.00 Weight (Pounds): 100 General Appearance: WD/WN, alert Neck: supple Cardiovascular: regular rhythm Respiratory/Chest: chest wall non-tender, lungs clear Abdomen: normal bowel sounds, non tender, soft, no organomegaly Edema: no edema noted Arm (L), no edema noted Arm (R), no edema noted Leg (L), no edema noted Leg (R), no edema noted Pedal (L), no edema noted Pedal (R), no edema noted Generalized 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
[2016-07-23 11:19] VITALS: BP 126/60
--- NOTE | 2016-07-23 12:39 | Nephrology Progress Note ---
Assessment/Plan Problem List: (1) ESRD (end stage renal disease) on dialysis (2) DM (diabetes mellitus) (3) HTN (hypertension) (4) Gastroparesis (5) Gastrointestinal bleeding, upper Assessment Anemia better Plan HD as tolerated Discussed with HD RN follow H/H Subjective Subjective pt being dialyzed Objective Objective Last 24 Hour Vital Signs Date Time Temp Pulse Resp B/P Pulse Ox O2 Delivery O2 Flow Rate FiO2 07/23/16 11:19 97.8 72 19 126/60 98 Room Air 07/23/16 11:19 72 07/23/16 08:00 98.1 76 20 132/57 99 Room Air 07/23/16 08:00 76 07/23/16 04:00 97.9 73 20 128/57 99 Room Air 07/23/16 03:33 65 07/23/16 00:00 65 07/23/16 00:00 98.1 70 20 139/61 97 Room Air 07/22/16 20:00 65 07/22/16 19:00 98.1 66 20 113/45 100 Nasal Cannula 2.0 07/22/16 16:00 74 07/22/16 15:39 98.1 71 20 122/61 97 Nasal Cannula 2.0 Intake and Output 07/22/16 07/23/16 19:00 07:00 Intake Total 675 ml 390 ml Balance 675 ml 390 ml Intake Oral 50 ml 50 ml Free Water 50 ml Tube Feeding 275 ml 340 ml Blood Product 300 ml # Voids 1 # Bowel Movements 3 5 Laboratory Tests 07/23/16 04:00: White Blood Count 5.6, Red Blood Count 2.98L, Hemoglobin 9.2L, Hematocrit 26.9L , Mean Corpuscular Volume 90, Mean Corpuscular Hemoglobin 30.8, Mean Corpuscular Hemoglobin Concent 34.2, Red Cell Distribution Width 14.7, Platelet Count 72L, Mean Platelet Volume 7.5, Neutrophils (%) (Auto) , Lymphocytes (%) ( Auto) , Monocytes (%) (Auto) , Eosinophils (%) (Auto) , Basophils (%) (Auto) , Differential Total Cells Counted 100, Neutrophils % (Manual) 76H, Lymphocytes % (Manual) 15L, Monocytes % (Manual) 5, Eosinophils % (Manual) 3, Basophils % ( Manual) 1, Band Neutrophils 0, Platelet Estimate DecreasedL, Platelet Morphology Normal, Hypochromasia 2+, Anisocytosis 1+, Spherocytes 1+, Sodium Level 141, Potassium Level 4.6, Chloride Level 98, Carbon Dioxide Level 31H, Anion Gap 12, Blood Urea Nitrogen 49H, Creatinine 6.3H, Estimat Glomerular Filtration Rate 9.1, Glucose Level 185H, Calcium Level 9.4 Height (Feet): 5 Height (Inches): 5.00 Weight (Pounds): 100 Cardiovascular: normal rate Respiratory/Chest: lungs clear ROLAND FOX Jul 23, 2016 12:39
--- NOTE | 2016-07-23 12:41 | Nephrology Progress Note ---
Assessment/Plan Problem List: (1) ESRD (end stage renal disease) on dialysis (2) DM (diabetes mellitus) (3) HTN (hypertension) (4) Gastroparesis (5) Gastrointestinal bleeding, upper Assessment Anemia better Plan HD on 07/23 ordered follow labs Subjective Subjective NOTE FOR 07/22 pt was seen in NAD Objective Objective Last 24 Hour Vital Signs Date Time Temp Pulse Resp B/P Pulse Ox O2 Delivery O2 Flow Rate FiO2 07/23/16 11:19 97.8 72 19 126/60 98 Room Air 07/23/16 11:19 72 07/23/16 08:00 98.1 76 20 132/57 99 Room Air 07/23/16 08:00 76 07/23/16 04:00 97.9 73 20 128/57 99 Room Air 07/23/16 03:33 65 07/23/16 00:00 65 07/23/16 00:00 98.1 70 20 139/61 97 Room Air 07/22/16 20:00 65 07/22/16 19:00 98.1 66 20 113/45 100 Nasal Cannula 2.0 07/22/16 16:00 74 07/22/16 15:39 98.1 71 20 122/61 97 Nasal Cannula 2.0 Intake and Output 07/22/16 07/23/16 19:00 07:00 Intake Total 675 ml 390 ml Balance 675 ml 390 ml Intake Oral 50 ml 50 ml Free Water 50 ml Tube Feeding 275 ml 340 ml Blood Product 300 ml # Voids 1 # Bowel Movements 3 5 Laboratory Tests 07/23/16 04:00: White Blood Count 5.6, Red Blood Count 2.98L, Hemoglobin 9.2L, Hematocrit 26.9L , Mean Corpuscular Volume 90, Mean Corpuscular Hemoglobin 30.8, Mean Corpuscular Hemoglobin Concent 34.2, Red Cell Distribution Width 14.7, Platelet Count 72L, Mean Platelet Volume 7.5, Neutrophils (%) (Auto) , Lymphocytes (%) ( Auto) , Monocytes (%) (Auto) , Eosinophils (%) (Auto) , Basophils (%) (Auto) , Differential Total Cells Counted 100, Neutrophils % (Manual) 76H, Lymphocytes % (Manual) 15L, Monocytes % (Manual) 5, Eosinophils % (Manual) 3, Basophils % ( Manual) 1, Band Neutrophils 0, Platelet Estimate DecreasedL, Platelet Morphology Normal, Hypochromasia 2+, Anisocytosis 1+, Spherocytes 1+, Sodium Level 141, Potassium Level 4.6, Chloride Level 98, Carbon Dioxide Level 31H, Anion Gap 12, Blood Urea Nitrogen 49H, Creatinine 6.3H, Estimat Glomerular Filtration Rate 9.1, Glucose Level 185H, Calcium Level 9.4 Height (Feet): 5 Height (Inches): 5.00 Weight (Pounds): 100 Cardiovascular: normal rate Respiratory/Chest: lungs clear ROLAND FOX Jul 23, 2016 12:41
[2016-07-23] MEDS: metroNIDAZOLE 500mg tab GT SCH ×2 (16:26→22:44)
[2016-07-23 16:27] VITALS: BP 124/51
[2016-07-23] MEDS ORDERED: NS 275ml ONE (17:11)
[2016-07-23] MEDS: Renvela 800mg Pkt NG SCH (18:34)
[2016-07-23 20:00] VITALS: BP 118/53
--- NOTE | 2016-07-23 22:27 | Cardiology Report ---
APPROVED REPORT EKG Measurement Heart [id number] Normal sinus rhythm Right bundle branch block Left anterior fascicular block Bifascicular block Septal infarct, age undetermined Abnormal ECG
[2016-07-24] VITALS: BP 129/55
--- NOTE | 2016-07-24 03:08 | Progress Note ---
DATE: 07/23/2016 CARDIOLOGY PROGRESS NOTE: SUBJECTIVE: The patient has not had any new bleeding. Blood counts remained stable. No shortness of breath. No chest pain noted. The patient has completed hemodialysis with ultrafiltration today. OBJECTIVE: VITAL SIGNS: Blood pressure is 126/60, pulse rate 72, and respiratory rate 19. Monitored rhythm is sinus with atrial ectopy. CHEST: Diminished breath sounds. Few rhonchi. HEART: Regular rhythm and rate. Normal S1 and S2. ABDOMEN: Soft. G-tube is intact. Trace dependent edema. LABORATORY DATA: White count is 5.6, hemoglobin 9.2, and platelet count 72,000. IMPRESSION: 1. Status post gastrointestinal bleed. 2. Anemia. 3. Gastroparesis. 4. Gastrostomy tube. 5. End-stage renal disease. 6. Paroxysmal atrial fibrillation. 7. Hypertensive cardiomyopathy. 8. Conduction system disease of the heart. PLAN: 1. Monitor hemoglobin. 2. Continue proton-pump inhibitor. 3. Transfuse for hemoglobin less than 8 grams. 4. Continue current antiarrhythmic regimen with amiodarone at maintenance dosing. Christopher Muhammad M.D. DR: Shaan JOB#: [id number] CC: RIGOBERTO
[2016-07-24 04:00] VITALS: BP 136/62
[2016-07-24] MEDS: metroNIDAZOLE 500mg tab GT SCH ×3 (06:12→21:50)
[2016-07-24] MEDS: Levothyroxine 25mcg tab GT SCH (06:12)
[2016-07-24 08:00] VITALS: BP 121/49
[2016-07-24] MEDS: Renvela 800mg Pkt NG SCH ×3 (08:52→17:26)
[2016-07-24] MEDS: Nephrovite tab GT SCH (08:52)
[2016-07-24] MEDS: Amiodarone 200mg tab GT SCH (08:53)
[2016-07-24] MEDS: Pantoprazole Inj IVP SCH (08:53)
[2016-07-24] MEDS: Brimonidine 0.2% Opth Sol RIGHT EYE SCH ×2 (08:54→17:26)
[2016-07-24] MEDS: Cosopt Opth Soln 10 mL Btl RIGHT EYE SCH ×2 (08:55→17:27)
[2016-07-24] MEDS: Pred Forte 1% Opth Susp 1ml RIGHT EYE SCH ×4 (08:55→20:15)
--- NOTE | 2016-07-24 10:02 | General Progress Note ---
Assessment/Plan Problem List: (1) Diabetic gastroparesis ICD Codes: E11.43 - Diabetic gastroparesis SNOMED: 31566857 (2) Anemia ICD Codes: D64.9 - Anemia SNOMED: 826405654 (3) INTRACTABLE VOMITING (4) ESRD (end stage renal disease) on dialysis ICD Codes: N18.6 - ESRD (end stage renal disease) on dialysis; Z99.2 - Dependence on renal dialysis SNOMED: 579497638 (5) Hypertension ICD Codes: I10 - Hypertension SNOMED: 75514892 (6) Gastrointestinal bleeding, upper ICD Codes: K92.2 - Upper gastrointestinal hemorrhage SNOMED: 27008052 Status: stable, progressing Assessment/Plan po protonix monitor h/h antiemetics feeds and pos as tolerated transfuse prn bp rx HD per renal guarded. stable for monitored bed Subjective ROS Limited/Unobtainable: No Constitutional: Reports: malaise, weakness HEENT: Reports: no symptoms Cardiovascular: Reports: no symptoms Respiratory: Reports: no symptoms Gastrointestinal/Abdominal: Reports: no symptoms Genitourinary: Reports: no symptoms Neurologic/Psychiatric: Reports: pre-existing deficit Endocrine: Reports: no symptoms Hematologic/Lymphatic: Reports: no symptoms Allergies: Coded Allergies: No Known Allergies (Unverified , 10/25/11) All Systems: reviewed and negative except above Subjective no bleeding. no more vomiting. wants to eat. Objective Last 24 Hour Vital Signs Date Time Temp Pulse Resp B/P Pulse Ox O2 Delivery O2 Flow Rate FiO2 07/24/16 08:00 97.5 68 19 121/49 96 Room Air 07/24/16 04:00 97.9 68 18 136/62 96 Room Air 07/24/16 04:00 67 07/24/16 00:00 62 07/24/16 00:00 97.3 65 20 129/55 98 Room Air 07/23/16 20:00 98.2 64 18 118/53 96 Room Air 07/23/16 20:00 61 07/23/16 19:47 98 Room Air 07/23/16 19:47 Room Air 07/23/16 16:27 98.1 70 20 124/51 93 Room Air 07/23/16 16:00 70 07/23/16 15:15 Room Air 07/23/16 12:10 Room Air 07/23/16 11:19 97.8 72 19 126/60 98 Room Air 07/23/16 11:19 72 Intake and Output 07/23/16 07/24/16 19:00 07:00 Intake Total 465 ml 630 ml Output Total 1350 ml 0 ml Balance -885 ml 630 ml Free Water 100 ml 150 ml Tube Feeding 365 ml 480 ml Output Urine Total 0 ml Stool Total 50 ml Hemodialysis UF 1300 ml # Bowel Movements 2 2 Height (Feet): 5 Height (Inches): 5.00 Weight (Pounds): 100 Objective General Appearance: WD/WN, alert Neck: supple Cardiovascular: regular rhythm Respiratory/Chest: lungs clear Abdomen: normal bowel sounds, non tender, soft, no organomegaly Edema: no edema noted Arm (L), no edema noted Arm (R), no edema noted Leg (L), no edema noted Leg (R), no edema noted Pedal (L), no edema noted Pedal (R), no edema noted 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
[2016-07-24 12:00] VITALS: BP 131/54
--- NOTE | 2016-07-24 15:33 | General Progress Note ---
Assessment/Plan Assessment/Plan Assessment - GJ tube migration --> changed - GT site bleeding --> resolved - ESRD - anemia - hypotension - gastroparesis- tolerating 100% GT feed diet very well - cyclic vomiting Recommendations - Continue GT feeding - PPI - monitor H&H Subjective Allergies: Coded Allergies: No Known Allergies (Unverified , 10/25/11) Subjective some nausea no vomiting tolerating GT feeds Objective Last 24 Hour Vital Signs Date Time Temp Pulse Resp B/P Pulse Ox O2 Delivery O2 Flow Rate FiO2 07/24/16 12:00 99.7 67 20 131/54 100 Room Air 07/24/16 12:00 63 07/24/16 08:00 73 07/24/16 08:00 97.5 68 19 121/49 96 Room Air 07/24/16 04:00 97.9 68 18 136/62 96 Room Air 07/24/16 04:00 67 07/24/16 00:00 62 07/24/16 00:00 97.3 65 20 129/55 98 Room Air 07/23/16 20:00 98.2 64 18 118/53 96 Room Air 07/23/16 20:00 61 07/23/16 19:47 98 Room Air 07/23/16 19:47 Room Air 07/23/16 16:27 98.1 70 20 124/51 93 Room Air 07/23/16 16:00 70 Intake and Output 07/23/16 07/24/16 19:00 07:00 Intake Total 465 ml 630 ml Output Total 1350 ml 0 ml Balance -885 ml 630 ml Free Water 100 ml 150 ml Tube Feeding 365 ml 480 ml Output Urine Total 0 ml Stool Total 50 ml Hemodialysis UF 1300 ml # Bowel Movements 2 2 Height (Feet): 5 Height (Inches): 5.00 Weight (Pounds): 100 Objective Thin AA man NCAT supple CTA RRR soft ND NT (+) feeding tube no edema non focal KAYDEN MORALES Jul 24, 2016 15:33
[2016-07-24 16:11] VITALS: BP 137/56
[2016-07-24] MEDS ORDERED: Metoclopramide 10mg/2ml Inj IVP PRN (16:16)
[2016-07-24] MEDS: Metoclopramide 10mg/2ml Inj IVP PRN (17:27)
[2016-07-24 20:18] VITALS: BP 140/65
--- NOTE | 2016-07-24 20:48 | Progress Note ---
DATE: 07/24/2016 CARDIOLOGY PROGRESS NOTE SUBJECTIVE: The patient is tolerating feedings by G-tube and orally. No vomiting noted. He is status post hemodialysis with ultrafiltration. OBJECTIVE: VITAL SIGNS: Afebrile, blood pressure 121/49, pulse 68, and respirations 19. NECK: Supple. LUNGS: Clear. CARDIAC: Regular rhythm and rate. Normal S1 and S2. A 1/6 systolic murmur at apex. ABDOMEN: Soft. EXTREMITIES: Trace edema. LABORATORY DATA: White count 5.6 and hemoglobin 9.2. Potassium 4.6. IMPRESSION: 1. Gastroparesis. 2. Gastrostomy tube. 3. Status post gastrointestinal bleed. 4. Anemia. 5. End-stage renal disease. 6. Paroxysmal atrial fibrillation. 7. Hypertensive cardiomyopathy. 8. Chronic diastolic congestive heart failure. 9. Conduction system disease with bifascicular heart block. PLAN: 1. Advance oral and G-tube intake. 2. Transfuse for hemoglobin less than 8. 3. Continue proton pump inhibitor. 4. Maintain amiodarone for arrhythmia suppression. 5. Monitor volume status and cardiorenal parameters. 6. Titrate anti-failure regimen accordingly. Christopher Muhammad M.D. DR: CHESTER JOB#: [id number] CC: RIGOBERTO
[2016-07-25] VITALS: BP 145/66
[2016-07-25 04:00] VITALS: BP 152/69
[2016-07-25 05:16] LABS: MEAN CORPUSCULAR HEMOGLOBIN 30.7 PG (27.0-31.0); MEAN CORPUSCULAR HGB CONC 33.7 G/DL (32.0-36.0); MEAN CORPUSCULAR VOLUME 91 FL (80-99); MEAN PLATELET VOLUME 8.5 FL (6.5-10.1); PLATELET COUNT 72 K/UL (150-450); RED BLOOD COUNT 2.94 M/UL (4.70-6.10); RED CELL DISTRIBUTION WIDTH 14.1 % (11.6-14.8); WHITE BLOOD COUNT 4.9 K/UL (4.8-10.8)
[2016-07-25 05:41] LABS: CALCIUM 9.3 mg/dL (8.6-10.2); CREATININE 6.6 mg/dL (0.7-1.2); GLOMERULAR FILTRATION RATE 8.6 mL/min (>60); POTASSIUM 3.8 mEQ/L (3.4-4.9)
[2016-07-25] MEDS: metroNIDAZOLE 500mg tab GT SCH ×3 (06:01→21:03)
[2016-07-25] MEDS: Levothyroxine 25mcg tab GT SCH (06:01)
[2016-07-25 08:33] VITALS: BP 156/70
--- NOTE | 2016-07-25 08:34 | General Progress Note ---
Assessment/Plan Assessment/Plan ssessment/Plan Assessment - GJ tube migration --> changed - GT site bleeding --> resolved - ESRD - anemia - hypotension - gastroparesis- tolerating 100% GT feed diet very well - cyclic vomiting Recommendations - Continue GT feeding - PPI - monitor H&H Subjective ROS Limited/Unobtainable: Yes Allergies: Coded Allergies: No Known Allergies (Unverified , 10/25/11) Subjective no event Objective Last 24 Hour Vital Signs Date Time Temp Pulse Resp B/P Pulse Ox O2 Delivery O2 Flow Rate FiO2 07/25/16 04:00 70 07/25/16 04:00 98.2 72 18 152/69 98 Room Air 07/25/16 00:00 67 07/25/16 00:00 98.2 72 17 145/66 98 Room Air 07/24/16 20:18 98.1 66 16 140/65 97 Room Air 07/24/16 19:49 67 07/24/16 16:11 97.9 72 20 137/56 97 Room Air 07/24/16 15:44 67 07/24/16 12:00 99.7 67 20 131/54 100 Room Air 07/24/16 12:00 63 Intake and Output 07/24/16 07/25/16 19:00 07:00 Intake Total 675 ml 280 ml Output Total 0 ml Balance 675 ml 280 ml Intake Oral 220 ml Free Water 150 ml 100 ml Tube Feeding 305 ml 180 ml Output Urine Total 0 ml # Bowel Movements 5 3 Laboratory Tests 07/25/16 04:00: White Blood Count 4.9, Red Blood Count 2.94L, Hemoglobin 9.0L, Hematocrit 26.8L , Mean Corpuscular Volume 91, Mean Corpuscular Hemoglobin 30.7, Mean Corpuscular Hemoglobin Concent 33.7, Red Cell Distribution Width 14.1, Platelet Count 72L, Mean Platelet Volume 8.5, Neutrophils (%) (Auto) , Lymphocytes (%) ( Auto) , Monocytes (%) (Auto) , Eosinophils (%) (Auto) , Basophils (%) (Auto) 07/25/16 04:10: Sodium Level 138, Potassium Level 3.8, Chloride Level 91L, Carbon Dioxide Level 31H, Anion Gap 16H, Blood Urea Nitrogen 50H, Creatinine 6.6H, Estimat Glomerular Filtration Rate 8.6, Glucose Level 141H, Calcium Level 9.3 Height (Feet): 5 Height (Inches): 5.00 Weight (Pounds): 100 General Appearance: no apparent distress EENT: normal ENT inspection Neck: supple Cardiovascular: normal rate Respiratory/Chest: decreased breath sounds Abdomen: normal bowel sounds, non tender, soft Extremities: non-tender BRITTANY HERNANDEZ Jul 25, 2016 08:34
[2016-07-25] MEDS: Brimonidine 0.2% Opth Sol RIGHT EYE SCH ×2 (09:00→18:06)
[2016-07-25] MEDS: Cosopt Opth Soln 10 mL Btl RIGHT EYE SCH ×2 (09:00→18:06)
[2016-07-25] MEDS: Pred Forte 1% Opth Susp 1ml RIGHT EYE SCH ×4 (09:00→20:49)
[2016-07-25] MEDS: Renvela 800mg Pkt NG SCH ×3 (09:00→18:06)
--- NOTE | 2016-07-25 11:53 | General Progress Note ---
Assessment/Plan Problem List: (1) Diabetic gastroparesis ICD Codes: E11.43 - Diabetic gastroparesis SNOMED: 85231866 (2) Anemia ICD Codes: D64.9 - Anemia SNOMED: 483809091 Qualifiers: Qualified Codes: D64.9 - Anemia, unspecified (3) INTRACTABLE VOMITING (4) ESRD (end stage renal disease) on dialysis ICD Codes: N18.6 - ESRD (end stage renal disease) on dialysis; Z99.2 - Dependence on renal dialysis SNOMED: 768546327 (5) Hypertension ICD Codes: I10 - Hypertension SNOMED: 84877532 (6) Gastrointestinal bleeding, upper ICD Codes: K92.2 - Upper gastrointestinal hemorrhage SNOMED: 68789280 Status: stable, progressing Assessment/Plan po protonix monitor h/h antiemetics feeds and pos as tolerated transfuse prn bp rx HD per renal improved pt/ot eval possible dc planning tomorrow or wednesday Subjective ROS Limited/Unobtainable: No Constitutional: Reports: weakness HEENT: Reports: no symptoms Cardiovascular: Reports: no symptoms Respiratory: Reports: no symptoms Gastrointestinal/Abdominal: Reports: nausea, vomiting Genitourinary: Reports: no symptoms Neurologic/Psychiatric: Reports: pre-existing deficit Endocrine: Reports: no symptoms Hematologic/Lymphatic: Reports: anemia Allergies: Coded Allergies: No Known Allergies (Unverified , 10/25/11) All Systems: reviewed and negative except above Subjective no bleeding. no more vomiting. tolerating feeds and po diet. not ambulating. no cp/sob. labs reviewed Objective Last 24 Hour Vital Signs Date Time Temp Pulse Resp B/P Pulse Ox O2 Delivery O2 Flow Rate FiO2 07/25/16 11:15 Room Air 07/25/16 08:33 98.1 76 20 156/70 98 Room Air 07/25/16 08:10 Room Air 07/25/16 08:00 80 07/25/16 04:00 70 07/25/16 04:00 98.2 72 18 152/69 98 Room Air 07/25/16 00:00 67 07/25/16 00:00 98.2 72 17 145/66 98 Room Air 07/24/16 20:18 98.1 66 16 140/65 97 Room Air 07/24/16 19:49 67 07/24/16 16:11 97.9 72 20 137/56 97 Room Air 07/24/16 15:44 67 07/24/16 12:00 99.7 67 20 131/54 100 Room Air 07/24/16 12:00 63 Intake and Output 07/24/16 07/25/16 19:00 07:00 Intake Total 675 ml 295 ml Output Total 0 ml Balance 675 ml 295 ml Intake Oral 220 ml Free Water 150 ml 100 ml Tube Feeding 305 ml 195 ml Output Urine Total 0 ml # Bowel Movements 5 3 Laboratory Tests 07/25/16 04:00: White Blood Count 4.9, Red Blood Count 2.94L, Hemoglobin 9.0L, Hematocrit 26.8L , Mean Corpuscular Volume 91, Mean Corpuscular Hemoglobin 30.7, Mean Corpuscular Hemoglobin Concent 33.7, Red Cell Distribution Width 14.1, Platelet Count 72L, Mean Platelet Volume 8.5, Neutrophils (%) (Auto) , Lymphocytes (%) ( Auto) , Monocytes (%) (Auto) , Eosinophils (%) (Auto) , Basophils (%) (Auto) 07/25/16 04:10: Sodium Level 138, Potassium Level 3.8, Chloride Level 91L, Carbon Dioxide Level 31H, Anion Gap 16H, Blood Urea Nitrogen 50H, Creatinine 6.6H, Estimat Glomerular Filtration Rate 8.6, Glucose Level 141H, Calcium Level 9.3 Height (Feet): 5 Height (Inches): 5.00 Weight (Pounds): 100 Objective General Appearance: WD/WN, alert Neck: supple Cardiovascular: regular rhythm Respiratory/Chest: lungs clear Abdomen: normal bowel sounds, non tender, soft, no organomegaly Edema: no edema noted Arm (L), no edema noted Arm (R), no edema noted Leg (L), no edema noted Leg (R), no edema noted Pedal (L), no edema noted Pedal (R), no edema noted Generalized Neurologic: life agent II-XII grossly normal, no motor/sensory deficits, abnormal gait , alert, oriented x 3, responsive MATTHEW FERRARO Jul 25, 2016 11:53
--- NOTE | 2016-07-25 11:59 | Nephrology Progress Note ---
Assessment/Plan Problem List: (1) ESRD (end stage renal disease) on dialysis (2) DM (diabetes mellitus) (3) HTN (hypertension) (4) Gastroparesis (5) Gastrointestinal bleeding, upper Assessment Anemia better Plan HD as tolerated Discussed with HD RN Subjective Subjective pt was seen on HD Objective Objective Last 24 Hour Vital Signs Date Time Temp Pulse Resp B/P Pulse Ox O2 Delivery O2 Flow Rate FiO2 07/25/16 11:15 Room Air 07/25/16 08:33 98.1 76 20 156/70 98 Room Air 07/25/16 08:10 Room Air 07/25/16 08:00 80 07/25/16 04:00 70 07/25/16 04:00 98.2 72 18 152/69 98 Room Air 07/25/16 00:00 67 07/25/16 00:00 98.2 72 17 145/66 98 Room Air 07/24/16 20:18 98.1 66 16 140/65 97 Room Air 07/24/16 19:49 67 07/24/16 16:11 97.9 72 20 137/56 97 Room Air 07/24/16 15:44 67 07/24/16 12:00 99.7 67 20 131/54 100 Room Air 07/24/16 12:00 63 Intake and Output 07/24/16 07/25/16 19:00 07:00 Intake Total 675 ml 295 ml Output Total 0 ml Balance 675 ml 295 ml Intake Oral 220 ml Free Water 150 ml 100 ml Tube Feeding 305 ml 195 ml Output Urine Total 0 ml # Bowel Movements 5 3 Laboratory Tests 07/25/16 04:00: White Blood Count 4.9, Red Blood Count 2.94L, Hemoglobin 9.0L, Hematocrit 26.8L , Mean Corpuscular Volume 91, Mean Corpuscular Hemoglobin 30.7, Mean Corpuscular Hemoglobin Concent 33.7, Red Cell Distribution Width 14.1, Platelet Count 72L, Mean Platelet Volume 8.5, Neutrophils (%) (Auto) , Lymphocytes (%) ( Auto) , Monocytes (%) (Auto) , Eosinophils (%) (Auto) , Basophils (%) (Auto) 07/25/16 04:10: Sodium Level 138, Potassium Level 3.8, Chloride Level 91L, Carbon Dioxide Level 31H, Anion Gap 16H, Blood Urea Nitrogen 50H, Creatinine 6.6H, Estimat Glomerular Filtration Rate 8.6, Glucose Level 141H, Calcium Level 9.3 Height (Feet): 5 Height (Inches): 5.00 Weight (Pounds): 100 Cardiovascular: normal rate Respiratory/Chest: lungs clear Extremities: other - no edema ROLAND FOX Jul 25, 2016 11:59
[2016-07-25 12:00] VITALS: BP 149/74
[2016-07-25] MEDS: Pantoprazole Inj IVP SCH (12:38)
[2016-07-25] MEDS: Amiodarone 200mg tab GT SCH (12:38)
[2016-07-25] MEDS: Nephrovite tab GT SCH (12:38)
[2016-07-25 15:46] VITALS: BP 157/69
[2016-07-25 19:45] VITALS: BP 146/63
[2016-07-26] VITALS: BP 144/66
--- NOTE | 2016-07-26 00:08 | Progress Note ---
DATE: 07/25/2016 SUBJECTIVE: No new bleeding noted. Monitored rhythm is sinus with atrial ectopy and PVC. OBJECTIVE: VITAL SIGNS: Blood pressure 156/70, pulse 76, respiratory rate 20. NECK: Supple. LUNGS: Clear. CARDIAC: Regular rhythm and rate. Normal S1 and S2 with a fourth heart sound. ABDOMEN: Soft. G-tube intact. EXTREMITIES: Trace edema. IMPRESSION: 1. Status post gastrointestinal bleed. 2. End-stage renal disease. 3. Gastrostomy tube with diabetic gastroparesis. 4. Insulin-requiring diabetes mellitus. 5. Hypertensive heart disease. 6. Paroxysmal atrial fibrillation. 7. Chronic diastolic congestive heart failure. 8. Anemia. PLAN: Continue maintenance dose amiodarone. Full thyroid panel and adjust thyroid replacement accordingly every three months. Consider angiotensin-converting enzyme inhibitor for tighter blood pressure control with monitoring of potassium levels thereafter in the setting of renal failure. Christopher Muhammad M.D. DR: Coleman JOB#: [id number] CC:
[2016-07-26] MEDS: Metoclopramide 10mg/2ml Inj IVP PRN (00:17)
[2016-07-26 04:00] VITALS: BP 155/69
[2016-07-26] MEDS: metroNIDAZOLE 500mg tab GT SCH (06:23)
[2016-07-26] MEDS: Levothyroxine 25mcg tab GT SCH (06:23)
--- NOTE | 2016-07-26 07:53 | General Progress Note ---
Assessment/Plan Assessment/Plan ssessment/Plan Assessment - GJ tube migration --> changed - GT site bleeding --> resolved - ESRD - anemia - hypotension - gastroparesis- tolerating 100% GT feed diet very well - cyclic vomiting Recommendations - Continue GT feeding - PPI - monitor H&H Subjective ROS Limited/Unobtainable: No Allergies: Coded Allergies: No Known Allergies (Unverified , 10/25/11) Subjective no event Objective Last 24 Hour Vital Signs Date Time Temp Pulse Resp B/P Pulse Ox O2 Delivery O2 Flow Rate FiO2 07/26/16 04:00 99.1 78 18 155/69 99 Room Air 07/26/16 04:00 74 07/26/16 00:00 68 07/26/16 00:00 98.1 68 20 144/66 99 Room Air 07/25/16 19:46 65 07/25/16 19:45 97.2 66 20 146/63 99 Room Air 07/25/16 16:04 67 07/25/16 15:46 97.7 68 20 157/69 97 Nasal Cannula 2.0 07/25/16 12:00 70 07/25/16 12:00 97.9 70 18 149/74 100 Room Air 07/25/16 11:15 Room Air 07/25/16 08:33 98.1 76 20 156/70 98 Room Air 07/25/16 08:10 Room Air 07/25/16 08:00 80 Intake and Output 07/25/16 07/26/16 19:00 07:00 Intake Total 780 ml 195 ml Output Total 2250 ml Balance -1470 ml 195 ml Intake Oral 550 ml 30 ml Free Water 50 ml 30 ml Tube Feeding 180 ml 135 ml Stool Total 200 ml Hemodialysis UF 2050 ml # Voids 1 # Bowel Movements 3 Height (Feet): 5 Height (Inches): 5.00 Weight (Pounds): 100 General Appearance: no apparent distress EENT: normal ENT inspection Neck: supple Cardiovascular: normal rate Respiratory/Chest: decreased breath sounds Abdomen: normal bowel sounds, non tender, soft Extremities: non-tender BRITTANY HERNANDEZ Jul 26, 2016 07:53
[2016-07-26 08:00] VITALS: BP 143/71
[2016-07-26] MEDS ORDERED: FLAGYL500 MG GT (08:41)
[2016-07-26] MEDS: Amiodarone 200mg tab GT SCH (08:58)
[2016-07-26] MEDS: Nephrovite tab GT SCH (08:58)
[2016-07-26] MEDS: Renvela 800mg Pkt NG SCH (08:59)
[2016-07-26] MEDS: Pantoprazole Inj IVP SCH (08:59)
[2016-07-26] MEDS: Pred Forte 1% Opth Susp 1ml RIGHT EYE SCH (09:00)
[2016-07-26] MEDS: Brimonidine 0.2% Opth Sol RIGHT EYE SCH (09:00)
[2016-07-26] MEDS ORDERED: Sterile Water Irrig 1000ml IRRIG ONE (09:01)
[2016-07-26] MEDS: Cosopt Opth Soln 10 mL Btl RIGHT EYE SCH (09:02)
--- NOTE | 2016-07-26 12:09 | Nephrology Progress Note ---
Assessment/Plan Problem List: (1) ESRD (end stage renal disease) on dialysis (2) DM (diabetes mellitus) (3) HTN (hypertension) (4) Gastroparesis (5) Gastrointestinal bleeding, upper Assessment Anemia better Plan DC today HD as outpt Subjective Subjective All noted Objective Objective Last 24 Hour Vital Signs Date Time Temp Pulse Resp B/P Pulse Ox O2 Delivery O2 Flow Rate FiO2 07/26/16 08:00 98.2 80 20 143/71 99 Room Air 07/26/16 08:00 85 07/26/16 04:00 99.1 78 18 155/69 99 Room Air 07/26/16 04:00 74 07/26/16 00:00 68 07/26/16 00:00 98.1 68 20 144/66 99 Room Air 07/25/16 19:46 65 07/25/16 19:45 97.2 66 20 146/63 99 Room Air 07/25/16 16:04 67 07/25/16 15:46 97.7 68 20 157/69 97 Nasal Cannula 2.0 Intake and Output 07/25/16 07/26/16 19:00 07:00 Intake Total 780 ml 195 ml Output Total 2250 ml Balance -1470 ml 195 ml Intake Oral 550 ml 30 ml Free Water 50 ml 30 ml Tube Feeding 180 ml 135 ml Stool Total 200 ml Hemodialysis UF 2050 ml # Voids 1 # Bowel Movements 3 Height (Feet): 5 Height (Inches): 5.00 Weight (Pounds): 100 ROLAND FOX Jul 26, 2016 12:09
--- NOTE | 2016-07-26 22:08 | Progress Note ---
DATE: 07/26/2016 CARDIOLOGY PROGRESS NOTE: SUBJECTIVE: The patient is without new bleeding. Hemoglobin has remained stable. He is on his usual hemodialysis and ultrafiltration schedule. Monitored rhythm, sinus. No atrial fibrillation. Occasional PACs and rare PVCs. OBJECTIVE: VITAL SIGNS: Blood pressure is 155/69, pulse 78, respiratory rate 18, and temperature 99.1 degrees. HEENT: Conjunctivae are pink. Oropharynx is clear with no thrush. NECK: Supple. LUNGS: Clear. CARDIAC: Regular rhythm and rate. Normal S1 and S2 with a fourth heart sound and a 1/6 systolic apical murmur. ABDOMEN: Soft and nontender. EXTREMITIES: Without edema. IMPRESSION: 1. Gastrointestinal bleeding, resolved. 2. Shock due to acute blood loss, recovered. 3. Anemia, multifactorial but primarily due to acute blood loss, stable posttransfusion. 4. Paroxysmal atrial fibrillation, suppressed on amiodarone. 5. End-stage renal disease, on hemodialysis. 6. Chronic diastolic and systolic congestive heart failure, clinically compensated. PLAN: Stable for outpatient followup. Medication regimen reviewed for outpatient care. Discussed with primary care physician and the patient. Christopher Muhammad M.D. DR: Shaan JOB#: [id number] CC:
--- NOTE | 2016-07-26 23:19 | Discharge Summary ---
DATE OF ADMISSION: 07/19/2016 DATE OF DISCHARGE: 07/26/2016 ADMISSION DIAGNOSES: 1. Gastrointestinal bleed. 2. Severe anemia. 3. Intractable nausea and vomiting. 4. History of severe gastroparesis status post gastrostomy tube placement. 5. Hypertension. 6. Glaucoma. 7. History of lung cancer. 8. Chronic end-stage renal disease. 9. Diabetes. DISCHARGE DIAGNOSES: 1. Gastrointestinal bleed. 2. Severe anemia. 3. Intractable nausea and vomiting. 4. History of severe gastroparesis status post gastrostomy tube placement. 5. Hypertension. 6. Glaucoma. 7. History of lung cancer. 8. Chronic end-stage renal disease. 9. Diabetes. HOSPITAL COURSE: The patient is a pleasant 61-year-old male, who was admitted with intractable nausea and vomiting, hematemesis, bright red blood per rectum. He was severely anemic admitted to the intensive care unit. He required multiple blood transfusions. He received PPI treatment. He was seen by GI and underwent endoscopy that showed bleeding from his G-tube site. This was cauterized and the bleeding stopped. Hemoglobin remained mostly stable. The patient's hospital course was complicated by intermittent episodes of nausea and vomiting. The patient responded well to antiemetic therapy. He was continued on hemodialysis. He had diarrhea C. difficile positive. He will be discharged home on complete 14 days of C. difficile treatment. He will follow up with his PMD in one week. DISCHARGE MEDICATIONS: Please see discharge medication list for discharge medications. DIET: Renal diet. ACTIVITY: Ad-yancy. Guillermo Galvez M.D. DR: DENZEL JOB#: [id number] CC:
--- NOTE | 2016-07-28 11:22 | Cardiology Report ---
APPROVED REPORT EXAM: Two-dimensional and M-mode echocardiogram with Doppler and color Doppler. INDICATION Arrhythmia M-Mode DIMENSIONS IVSd0.7 (0.7-1.1cm)Left Atrium (MM)3.7 (1.6-4.0cm) LVDd5.4 (3.5-5.6cm)Aortic Root2.6 (2.0-3.7cm) PWd0.9 (0.7-1.1cm)Aortic Cusp Exc.1.5 (1.5-2.0cm) LVDs3.2 (2.5-4.0cm) PWs1.2 cm Normal left ventricular chamber size, systolic function and wall motion. Left ventricular ejection fraction estimated to be 60-65%. No evidence of left ventricular hypertrophy. Small posterior pericardial effusion. Mild bi-atrial enlargement by 2D. Mild focal aortic valve sclerosis with adequate cusp excursion Thickened mitral valve leaflets with normal excursion. Mitral annulus and aortic root calcification. Pulmonic valve not well visualized. Normal tricuspid valve structure. IVC dilated at 2.2cm with no physiologic collapse. RA pressure of 20mmHg. A color flow and spectral Doppler study was performed and revealed: No aortic regurgitation. Moderate mitral regurgitation. Left ventricular diastolic dysfunction grade 1. Moderate tricuspid regurgitation. Tricuspid systolic velocities suggests peak right ventricular systolic pressure of 59 mmHg Consistent with severe pulmonary hypertension. Pulmonic regurgitation present.
== END 2016-07-26 11:20 | disposition home or self-care (01) | DRG 393 ==
LOC: EMR 15:59 → EDBEDREQ 17:00 → EDBEDREQSVC 17:00 → EDBEDREQ 17:05 → ICU 18:09 → 2W 07-21 20:10
PROC: 30233N1 Transfusion of Nonautologous Red Blood Cells into Peripheral Vein, Percutaneous Approach (ICD-10-PCS; 2016-07-19)
PROC: 0D2DXUZ Change Feeding Device in Lower Intestinal Tract, External Approach (ICD-10-PCS; principal; 2016-07-20 12:55)
PROC: 0W3P8ZZ Control Bleeding in Gastrointestinal Tract, Via Natural or Artificial Opening Endoscopic (ICD-10-PCS; principal; 2016-07-20 12:55)
PROC: 5A1D60Z (ICD-10-PCS; 2016-07-21)
DX: K94.21 Gastrostomy hemorrhage (principal); N18.6 End stage renal disease; R57.1 Hypovolemic shock; A04.7 Enterocolitis due to Clostridium difficile; C34.90 Malignant neoplasm of unspecified part of unspecified bronchus or lung; I13.0 Hypertensive heart and chronic kidney disease with heart failure and stage 1 through stage 4 chronic kidney disease, or unspecified chronic kidney disease; I50.9 Heart failure, unspecified; I45.2 Bifascicular block; J44.9 Chronic obstructive pulmonary disease, unspecified; K94.23 Gastrostomy malfunction; Y83.3 Surgical operation with formation of external stoma as the cause of abnormal reaction of the patient, or of later complication, without mention of misadventure at the time of the procedure; K31.84 Gastroparesis; E11.43 Type 2 diabetes mellitus with diabetic autonomic (poly)neuropathy; I48.0 Paroxysmal atrial fibrillation; D64.9 Anemia, unspecified; Z99.2 Dependence on renal dialysis; H40.9 Unspecified glaucoma; Z95.0 Presence of cardiac pacemaker; I25.5 Ischemic cardiomyopathy; N18.9 Chronic kidney disease, unspecified; Z79.4 Long term (current) use of insulin; G43.A0 Cyclical vomiting, in migraine, not intractable
CPT/HCPCS: 36415; 74000; 80048; 80053; 80329; 82962; 83690; 83735; 84100; 85007; 85025; 85610; 85730; 86850; 86900; 86901; 86920; 87081; 87324; 93005; 93306; 94003; 94150; 94760; J2250; J2405; J2765

== ENCOUNTER 2016-08-07 09:09 | Inpatient (IN) | payer MEDICARE, MEDICAID ==
[~2016-08-07] VITALS: Ht 162.6 cm; Wt 48.5 kg
[2016-08-07] VITALS (14 sets, daily range): BP systolic 80–113; BP diastolic 29–60
[~2016-08-07 09:09] MED LIST changes: +FLAGYL500 MG GT
[2016-08-07] MEDS ORDERED: Pantoprazole Inj IVP ONE (09:45)
--- NOTE | 2016-08-07 10:11 | Emergency Room Report ---
History of Present Illness General Chief Complaint: Gastrointestinal Bleed Source: Patient Present Illness HPI 61 YOM walk-in with "vomiting blood" since this morning and "dark stool." Per EMR was just admitted here recently. PMHx includes ESRD MWF, cardiomyopathy, CHF, DM, Atrial Fib, HTN, gastroparesis. Had Hb 5.4 on last admit, required transfusion. Endoscopy revealed bleeding in Gtube tract which was controlled. Patient eating by mouth currently, not using Gtube. Allergies: Coded Allergies: No Known Allergies (Unverified , 10/25/11) Patient History Past Medical History: other - see my HPI Past Surgical History: other - Gtube placement Pertinent Family History: none Social History: Denies: alcohol use, drug use, smoking Immunizations: UTD Reviewed Nursing Documentation: PMH: Agreed, PSxH: Agreed Nursing Documentation-PMH Hx Cardiac Problems: Yes Hx Hypertension: Yes Hx Pacemaker: Yes Hx Asthma: No Hx COPD: No Hx Diabetes: Yes Hx Cancer: Yes Hx Gastrointestinal Problems: Yes Hx Dialysis: Yes Hx Neurological Problems: No Review of Systems All Other Systems: negative except mentioned in HPI Physical Exam Vital Signs Date Time Temp Pulse Resp B/P Pulse Ox O2 Delivery O2 Flow Rate FiO2 08/07/16 09:21 97.7 122 24 78/49 100 Room Air Sp02 EP Interpretation: reviewed, abnormal General Appearance: normal inspection, alert, GCS 15, non-toxic, moderate distress, cachetic, other - Coffee ground emesis Head: normocephalic, atraumatic Eyes: bilateral eye EOMI, bilateral eye PERRL ENT: normal ENT inspection, hearing grossly normal, normal voice Neck: normal inspection, full range of motion, supple, no bony tend Respiratory: normal inspection, lungs clear, normal breath sounds, no respiratory distress, no retraction, no wheezing Cardiovascular #1: regular rate, rhythm, no edema Gastrointestinal: normal inspection, normal bowel sounds, non tender, soft, no guarding, no hernia Genitourinary: no CVA tenderness Musculoskeletal: normal inspection, back normal, normal range of motion, Clement' s Sign negative, other - right upper extremity fistula; old left upper extremity fistula. Poor peripheral access/circulation Neurologic: normal inspection, alert, responsive, speech normal Procedures Critical Care Time Critical Care Time CC time 30 minutes for this 61YOM with hematemesis VS: tachycardia, hypotension Known upper GI bleed Recently admitted for transfusion CC time includes comprehensive review of chart, placement of peripheral IV access by MD, review of labs, transfusion, d/w Dr Stein GI Specialist and Dr Galvez hospitalist ICU admission Medical Decision Making Diagnostic Impression: Primary Impression: Gastrointestinal hemorrhage Qualified Codes: K92.2 - Gastrointestinal hemorrhage, unspecified Additional Impressions: Vomiting Qualified Codes: K92.0 - Hematemesis Hypotension Qualified Codes: I95.89 - Other hypotension ER Course Labs: Hb critically low. Mild elevation leuks likely reactionary from vomiting. Baseline serumCr elevation d/t CKD. Patient anuric, no UA obtained Patient hypotensive in the ER but mentating normally Coffee-ground emesis, NOT marylou blood Airway patent After anti-emetic, patient not vomiting anymore IV nexium given 2U PRBC ordered Did NOT give IVF given patient known CKD, CHF, anuric. Patient NEEDS Blood Was told by Blood Bank that patient's typed and crossed blood available within 20 minutes so O- not given Patient went to ICU before transfusion could be started in ED Endorsed to Dr Amador and Dr Gonzalez at 11pm. Patient likely needs endoscopy/colnoscopy again. EKG Diagnostic Results Rate: normal Rhythm: NSR ST Segments: no acute changes ASA given to the pt in ED: No Rhythm Strip Diag. Results EP Interpretation: yes Rate: 75 Rhythm: NSR, no PVC's, no ectopy Last Vital Signs Date Time Temp Pulse Resp B/P Pulse Ox O2 Delivery O2 Flow Rate FiO2 08/07/16 09:21 97.7 122 24 78/49 100 Room Air Status: improved Disposition: ADMITTED INPATIENT Condition: Critical NERY PAK M.D. Aug 07, 2016 10:11
[2016-08-07 10:19] LABS: MEAN CORPUSCULAR HEMOGLOBIN 31.1 PG (27.0-31.0); MEAN CORPUSCULAR VOLUME 100 FL (80-99); PLATELET COUNT 130 K/UL (150-450); RED BLOOD COUNT 1.53 M/UL (4.70-6.10); RED CELL DISTRIBUTION WIDTH 17.1 % (11.6-14.8); WHITE BLOOD COUNT 11.9 K/UL (4.8-10.8)
[2016-08-07 10:56] LABS: ALBUMIN/GLOBULIN RATIO 1.1 (1.0-2.7); CALCIUM 10.1 mg/dL (8.6-10.2); CREATININE 5.6 mg/dL (0.7-1.2); GLOMERULAR FILTRATION RATE 10.4 mL/min (>60); POTASSIUM 5.1 mEQ/L (3.4-4.9); TOTAL PROTEIN 6.1 g/dL (6.6-8.7)
[2016-08-07 11:04] LABS: ANISOCYTOSIS 1+; BAND NEUTROPHILS % (MANUAL) 1 % (0-8); BASOPHILS % (MANUAL) 0 % (0-2); EOSINOPHILS % (MANUAL) 0 % (0-3); HYPOCHROMASIA 2+; LYMPHOCYTES % (MANUAL) 5 % (20-45); MACROCYTES 1+; NEUTROPHILS % (MANUAL) 91 % (45-75); PLATELET ESTIMATE DECREASED; PLATELET MORPHOLOGY NORMAL; TOTAL CELLS COUNTED 100
[2016-08-07 11:38] LABS: INR 1.2 (0.9-1.1); PROTHROMBIN TIME 12.5 SEC (9.30-11.50)
--- NOTE | 2016-08-07 12:49 | Consultation ---
Consult Note Assessment/Plan Renal consult dictated # ROLAND FOX Aug 07, 2016 12:49
[2016-08-07] MEDS: Amiodarone 200mg tab ORAL SCH (14:04)
[2016-08-07] MEDS: Pred Forte 1% Opth Susp 1ml RIGHT EYE SCH ×3 (14:04→21:17)
[2016-08-07] MEDS: Prochlorperazine 10mg tab ORAL SCH (17:21)
[2016-08-07] MEDS: Cosopt Opth Soln 10 mL Btl RIGHT EYE SCH (17:22)
[2016-08-07] MEDS: Losartan 50mg tab ORAL SCH (17:23)
[2016-08-07] MEDS: Brimonidine 0.2% Opth Sol RIGHT EYE SCH (17:23)
--- NOTE | 2016-08-07 19:29 | General Progress Note ---
Assessment/Plan Assessment/Plan Assessment - Recurrent UGI bleed, suspect GT tract source (? currently resolved) - s/p recent UGI bleed, with negative EGD except GT tract bleeding - ESRD - anemia - hypotension - gastroparesis - recurrent vomiting syndrome Recommendations - Agree with RBC transfusion - monitor CBC - Will cauterize GT tract in am - will consider EGD if recurrent bleeding Subjective Allergies: Coded Allergies: No Known Allergies (Unverified , 10/25/11) Objective Last 24 Hour Vital Signs Date Time Temp Pulse Resp B/P Pulse Ox O2 Delivery O2 Flow Rate FiO2 08/07/16 19:00 82 21 98/42 100 Room Air 08/07/16 18:00 89 23 80/40 100 Room Air 08/07/16 17:30 Room Air 08/07/16 17:23 80/39 08/07/16 17:00 84 25 88/60 100 Room Air 08/07/16 16:00 98.1 82 22 90/54 100 Room Air 08/07/16 16:00 82 08/07/16 15:00 96 25 102/50 100 Room Air 08/07/16 14:20 Room Air 08/07/16 14:00 98 27 113/31 100 Room Air 08/07/16 13:00 97 19 102/29 100 Room Air 08/07/16 12:11 91 08/07/16 12:00 98.2 91 19 105/34 100 Room Air 08/07/16 11:40 97.7 88 19 84/19 100 Room Air 08/07/16 11:31 97.7 88 19 84/29 100 Room Air 08/07/16 10:13 97.7 91 19 92/33 100 Room Air 08/07/16 09:21 97.7 122 24 78/49 100 Room Air Laboratory Tests 08/07/16 10:00: White Blood Count 11.9H, Red Blood Count 1.53L, Hemoglobin 4.8*L, Hematocrit 15.4L, Mean Corpuscular Volume 100H, Mean Corpuscular Hemoglobin 31.1H, Mean Corpuscular Hemoglobin Concent 31.0L, Red Cell Distribution Width 17.1H, Platelet Count 130L, Mean Platelet Volume 7.0, Neutrophils (%) (Auto) , Lymphocytes (%) (Auto) , Monocytes (%) (Auto) , Eosinophils (%) (Auto) , Basophils (%) (Auto) , Differential Total Cells Counted 100, Neutrophils % ( Manual) 91H, Lymphocytes % (Manual) 5L, Monocytes % (Manual) 3, Eosinophils % ( Manual) 0, Basophils % (Manual) 0, Band Neutrophils 1, Platelet Estimate DecreasedL, Platelet Morphology Normal, Hypochromasia 2+, Anisocytosis 1+, Macrocytosis 1+, Sodium Level 138, Potassium Level 5.1H, Chloride Level 93L, Carbon Dioxide Level 26, Anion Gap 19H, Blood Urea Nitrogen 57H, Creatinine 5.6H , Estimat Glomerular Filtration Rate 10.4, Glucose Level 255H, Calcium Level 10.1, Total Bilirubin 0.5, Aspartate Amino Transf (AST/SGOT) 20, Alanine Aminotransferase (ALT/SGPT) 14, Alkaline Phosphatase 50, Total Protein 6.1L, Albumin 3.2L, Globulin 2.9, Albumin/Globulin Ratio 1.1, Lipase 37 08/07/16 10:55: Prothrombin Time 12.5H, Prothromb Time International Ratio 1.2H, Activated Partial Thromboplast Time 19L Height (Feet): 5 Height (Inches): 5.00 Weight (Pounds): 108 KAYDEN MORALES Aug 07, 2016 19:29
--- NOTE | 2016-08-07 21:08 | Consultation ---
DATE OF CONSULTATION: NEPHROLOGY CONSULTATION REFERRING PHYSICIAN: Guillermo Galvez M.D. REASON FOR CONSULTATION: End-stage renal disease, requiring hemodialysis. HISTORY OF PRESENT ILLNESS: This is a 61-year-old male, who is known to me from previous admissions. The patient has end-stage renal disease and he is on hemodialysis every Wednesday, Wednesday, and Wednesday. His last dialysis was last Wednesday, three days ago. The patient was admitted with a GI bleed. He said he has had vomiting blood for the past three days and some diarrhea, although there is note in the ER that it started this morning. I was asked to see him in Nephrology consultation. PAST MEDICAL HISTORY: History of gastroparesis, he has a G-tube, but he also eats by mouth in addition to tube feeding, history of cardiomyopathy, diabetes mellitus, atrial fibrillation and hypertension. MEDICATIONS: Reviewed in the EMR. ALLERGIES: No known drug allergies. SOCIAL HISTORY: No history of smoking or alcohol abuse. The patient lives at home with a caregiver. REVIEW OF SYSTEMS: Noncontributory. PHYSICAL EXAMINATION: GENERAL: The patient is a 61-year-old male, in no acute distress. VITAL SIGNS: Initially, the blood pressure was 78/49, pulse 122, and temperature 97.7 degrees. HEENT: Pale conjunctivae. Anicteric sclerae. NECK: Supple. LUNGS: Clear to auscultation. HEART: S1 and S2 with a large systolic ejection murmur. ABDOMEN: Soft and nontender with G-tube in upper abdomen. EXTREMITIES: No cyanosis or edema. LABORATORY AND DIAGNOSTIC DATA: The CBC shows a WBC of 11.9, hematocrit 15.4, hemoglobin 4.8, and platelet is 130,000. Chemistry panel shows serum sodium 138, potassium 5.1, chloride 93, BUN 57, creatinine 5.6, and glucose is 255. Albumin is 3.2. ASSESSMENT: This is a 61-year-old male, who was admitted with a gastrointestinal bleed. He has history of end-stage renal disease, on hemodialysis Wednesday, Wednesday, and Wednesday. He has history of hypertension, diabetes, and gastroparesis. PLAN: The patient will be dialyzed today with no heparin. He has been transfused at this time. Laboratories will be followed and adjustments will be made in inpatient medications. Thank you very much, Dr. Galvez, for this consultation. Dylan Garcia M.D. DR: BRITT JOB#: [id number] CC:
[2016-08-07] MEDS: Pantoprazole Inj IVP SCH (21:16)
[2016-08-08] VITALS (24 sets, daily range): BP systolic 76–138; BP diastolic 32–61
--- NOTE | 2016-08-08 00:08 | History and Physical Report ---
DATE OF ADMISSION: 08/07/2016 CHIEF COMPLAINT: GI bleed. HISTORY OF PRESENT ILLNESS: The patient is a very pleasant 61-year-old male. He has a history of end-stage renal disease and gastroparesis. He has a prior history of G-tube, hypertension, gastrointestinal bleed, diabetes, and gastroparesis. He was recently admitted a week ago with complaints of gastrointestinal bleed, at that time required multiple transfusions. He underwent endoscopy that showed bleeding from his G-tube site, this was cauterized and the patient was discharged in stable condition. Three days ago, he had recurrent hematemesis, melena, and bright red blood per rectum. He did not present to the emergency room until today. On evaluation in the emergency room, the patient's hemoglobin was 4. He is now being transfused and is admitted to the intensive care unit for further evaluation and care. PAST MEDICAL HISTORY: As above. PAST SURGICAL HISTORY: Includes G-tube. CURRENT MEDICATIONS: Reconciled and reviewed. ALLERGIES: None. FAMILY HISTORY: None. SOCIAL HISTORY: Negative for tobacco, ethanol, or drugs. REVIEW OF SYSTEMS: General: No fevers or chills. HEENT: No headaches or visual changes. Cardiopulmonary: No chest pain or shortness of breath. Gastrointestinal: Positive hematemesis and melena. Genitourinary: No urgency or frequency. Musculoskeletal: No joint pain or swelling. Neurologic: No evidence of seizures. PHYSICAL EXAMINATION: VITAL SIGNS: Temperature 98 degrees, blood pressure , pulse of 82, and respirations 20. GENERAL: The patient is a well-developed male, in no apparent distress. He is awake, alert, and oriented x4. NECK: Supple. LUNGS: Clear. ABDOMEN: Soft, nontender, and nondistended. EXTREMITIES: Without clubbing, cyanosis, or edema. LABORATORY DATA: White count 12, hemoglobin 4.8, hematocrit 15, and platelet count of 130,000, sodium 138, potassium 5.1, chloride 93, bicarbonate 26, BUN 57, and creatinine 5.6. INR is 1.2. ASSESSMENT: 1. This is a pleasant male admitted with complaints of gastrointestinal bleed, suspect bleeding again from the G-tube site caused gastrointestinal bleed. 2. Severe anemia. 3. End-stage renal disease. 4. Hypertension. 5. Diabetes. 6. History of gastroparesis. PLAN: Transfuse three units of packed red blood cells. Monitor serial CBCs every eight hours. Intravenous proton pump inhibitor. Renal and Gastrointestinal consultations. Continue hemodialysis per renal. Guillermo Galvez M.D. DR: DRE JOB#: [id number] CC:
[2016-08-08] MEDS: Prochlorperazine 10mg tab ORAL SCH ×3 (06:03→17:40)
[2016-08-08] MEDS: Levothyroxine 25mcg tab ORAL SCH (06:03)
[2016-08-08 06:14] LABS: MEAN CORPUSCULAR HEMOGLOBIN 31.1 PG (27.0-31.0); MEAN CORPUSCULAR HGB CONC 32.3 G/DL (32.0-36.0); MEAN CORPUSCULAR VOLUME 96 FL (80-99); MEAN PLATELET VOLUME 7.8 FL (6.5-10.1); PLATELET COUNT 86 K/UL (150-450); RED BLOOD COUNT 1.89 M/UL (4.70-6.10); RED CELL DISTRIBUTION WIDTH 15.2 % (11.6-14.8); WHITE BLOOD COUNT 9.9 K/UL (4.8-10.8)
[2016-08-08] MEDS: Brimonidine 0.2% Opth Sol RIGHT EYE SCH ×2 (08:41→17:40)
[2016-08-08] MEDS: Pred Forte 1% Opth Susp 1ml RIGHT EYE SCH ×4 (08:41→21:11)
[2016-08-08] MEDS: Pantoprazole Inj IVP SCH ×2 (08:41→21:11)
[2016-08-08] MEDS: Cosopt Opth Soln 10 mL Btl RIGHT EYE SCH ×2 (08:41→17:40)
[2016-08-08] MEDS: Amiodarone 200mg tab ORAL SCH (08:41)
[2016-08-08] MEDS: Losartan 50mg tab ORAL SCH ×2 (08:42→17:41)
--- NOTE | 2016-08-08 08:44 | General Progress Note ---
Assessment/Plan Problem List: (1) Hypertension ICD Codes: I10 - Essential (primary) hypertension SNOMED: 74746476 (2) Diabetic gastroparesis ICD Codes: E11.43 - Type 2 diabetes mellitus with diabetic autonomic (poly) neuropathy SNOMED: 50670389 (3) Chronic renal failure syndrome ICD Codes: N18.9 - Chronic kidney disease, unspecified SNOMED: 78576860 (4) Anemia ICD Codes: D64.9 - Anemia, unspecified SNOMED: 585640918 (5) Vomiting ICD Codes: R11.10 - Vomiting, unspecified SNOMED: 922867722 (6) Gastrointestinal hemorrhage ICD Codes: K92.2 - Gastrointestinal hemorrhage, unspecified SNOMED: 35409262 Qualifiers: Qualified Codes: K92.2 - Gastrointestinal hemorrhage, unspecified Status: stable, progressing Assessment/Plan PPI rx transfuse 2 more units prbc GI follow up HD per renal Subjective ROS Limited/Unobtainable: Yes Constitutional: Reports: malaise, weakness HEENT: Reports: no symptoms Cardiovascular: Reports: no symptoms Respiratory: Reports: no symptoms Gastrointestinal/Abdominal: Reports: tarry stools Genitourinary: Reports: no symptoms Neurologic/Psychiatric: Reports: pre-existing deficit Endocrine: Reports: no symptoms Hematologic/Lymphatic: Reports: anemia Allergies: Coded Allergies: No Known Allergies (Unverified , 10/25/11) All Systems: reviewed and negative except above Subjective still with melena. hg 5.9 after 3 units prbc Objective Last 24 Hour Vital Signs Date Time Temp Pulse Resp B/P Pulse Ox O2 Delivery O2 Flow Rate FiO2 08/08/16 06:00 86 23 107/44 99 Room Air 08/08/16 05:00 76 17 76/38 97 Room Air 08/08/16 04:00 97.6 82 15 90/38 98 Room Air 08/08/16 04:00 82 08/08/16 03:00 79 16 78/39 98 Room Air 08/08/16 02:00 85 22 95/43 99 Room Air 08/08/16 01:00 97.7 91 22 99/48 98 Room Air 08/08/16 00:00 88 24 82/32 99 Room Air 08/08/16 00:00 88 08/07/16 23:00 80 17 89/39 98 Room Air 08/07/16 22:00 83 14 91/42 99 Room Air 08/07/16 21:00 83 21 87/37 98 Room Air 08/07/16 20:00 97.6 83 19 86/35 98 Room Air 08/07/16 19:00 82 21 98/42 100 Room Air 08/07/16 18:00 89 23 80/40 100 Room Air 08/07/16 17:30 Room Air 08/07/16 17:23 80/39 08/07/16 17:00 84 25 88/60 100 Room Air 08/07/16 16:00 98.1 82 22 90/54 100 Room Air 08/07/16 16:00 82 08/07/16 15:00 96 25 102/50 100 Room Air 08/07/16 14:20 Room Air 08/07/16 14:00 98 27 113/31 100 Room Air 08/07/16 13:00 97 19 102/29 100 Room Air 08/07/16 12:11 91 08/07/16 12:00 98.2 91 19 105/34 100 Room Air 08/07/16 11:40 97.7 88 19 84/19 100 Room Air 08/07/16 11:31 97.7 88 19 84/29 100 Room Air 08/07/16 10:13 97.7 91 19 92/33 100 Room Air 08/07/16 09:21 97.7 122 24 78/49 100 Room Air Intake and Output 08/07/16 08/08/16 19:00 07:00 Intake Total 1560 ml 900 ml Output Total 150 ml Balance 1410 ml 900 ml Intake Oral 60 ml Blood Product 500 ml 900 ml Hemodialysis 1000 ml Output Emesis 150 ml # Bowel Movements 4 1 Laboratory Tests 08/07/16 10:00: White Blood Count 11.9H, Red Blood Count 1.53L, Hemoglobin 4.8*L, Hematocrit 15.4L, Mean Corpuscular Volume 100H, Mean Corpuscular Hemoglobin 31.1H, Mean Corpuscular Hemoglobin Concent 31.0L, Red Cell Distribution Width 17.1H, Platelet Count 130L, Mean Platelet Volume 7.0, Neutrophils (%) (Auto) , Lymphocytes (%) (Auto) , Monocytes (%) (Auto) , Eosinophils (%) (Auto) , Basophils (%) (Auto) , Differential Total Cells Counted 100, Neutrophils % ( Manual) 91H, Lymphocytes % (Manual) 5L, Monocytes % (Manual) 3, Eosinophils % ( Manual) 0, Basophils % (Manual) 0, Band Neutrophils 1, Platelet Estimate DecreasedL, Platelet Morphology Normal, Hypochromasia 2+, Anisocytosis 1+, Macrocytosis 1+, Sodium Level 138, Potassium Level 5.1H, Chloride Level 93L, Carbon Dioxide Level 26, Anion Gap 19H, Blood Urea Nitrogen 57H, Creatinine 5.6H , Estimat Glomerular Filtration Rate 10.4, Glucose Level 255H, Calcium Level 10.1, Total Bilirubin 0.5, Aspartate Amino Transf (AST/SGOT) 20, Alanine Aminotransferase (ALT/SGPT) 14, Alkaline Phosphatase 50, Total Protein 6.1L, Albumin 3.2L, Globulin 2.9, Albumin/Globulin Ratio 1.1, Lipase 37 08/07/16 10:55: Prothrombin Time 12.5H, Prothromb Time International Ratio 1.2H, Activated Partial Thromboplast Time 19L 08/08/16 05:20: White Blood Count 9.9, Red Blood Count 1.89L, Hemoglobin 5.9*L, Hematocrit 18.2L , Mean Corpuscular Volume 96, Mean Corpuscular Hemoglobin 31.1H, Mean Corpuscular Hemoglobin Concent 32.3, Red Cell Distribution Width 15.2H, Platelet Count 86L, Mean Platelet Volume 7.8, Neutrophils (%) (Auto) , Lymphocytes (%) (Auto) , Monocytes (%) (Auto) , Eosinophils (%) (Auto) , Basophils (%) (Auto) , Neutrophils % (Manual) [Pending], Lymphocytes % (Manual) [Pending], Platelet Estimate [Pending], Platelet Morphology [Pending] Height (Feet): 5 Height (Inches): 5.00 Weight (Pounds): 108 General Appearance: WD/WN, alert Neck: supple Cardiovascular: regular rhythm Respiratory/Chest: lungs clear Abdomen: normal bowel sounds, non tender, soft, no organomegaly Edema: no edema noted Arm (L), no edema noted Arm (R), no edema noted Leg (L), no edema noted Leg (R), no edema noted Pedal (L), no edema noted Pedal (R), no edema noted Generalized Neurologic: alert, oriented x 3, responsive MATTHEW FERRARO Aug 08, 2016 08:43
[2016-08-08] MEDS ORDERED: Silver Nitrate Stick TOPIC ONE (09:00)
[2016-08-08 09:10] LABS: ANISOCYTOSIS 1+; BAND NEUTROPHILS % (MANUAL) 0 % (0-8); BASOPHILS % (MANUAL) 0 % (0-2); EOSINOPHILS % (MANUAL) 0 % (0-3); HYPOCHROMASIA 1+; LYMPHOCYTES % (MANUAL) 9 % (20-45); NEUTROPHILS % (MANUAL) 86 % (45-75); PLATELET ESTIMATE DECREASED; PLATELET MORPHOLOGY NORMAL; TOTAL CELLS COUNTED 100
[2016-08-08 09:53] LABS: OTHERS PATHOLOGIST COMMENT
[2016-08-08] MEDS ORDERED: Tubing IV Blood Pump IV ONE (10:11)
[2016-08-08] MEDS ORDERED: NS 275ml ONE (10:11)
--- NOTE | 2016-08-08 14:36 | General Progress Note ---
Assessment/Plan Assessment/Plan Assessment - Recurrent UGI bleed, ? source - s/p recent UGI bleed, with negative EGD except GT tract bleeding - current GT site w/o e/o bleeding - silver nitrate not used - ESRD - anemia - hypotension - gastroparesis - recurrent vomiting syndrome Recommendations - Continue with RBC transfusion PRN - monitor CBC - PPI - Will proceed with EGD - Per RN supervisor [place], hospital cannot find GI lab staff to assist with the case this weekend - Will transfuse and wait. Will consider transfer to [facility] if bleeding worsens Subjective Allergies: Coded Allergies: No Known Allergies (Unverified , 10/25/11) Subjective has had recurrent bouts of DG emesis has had recurrent dark stools H&H still low, despite RBC Tx Objective Last 24 Hour Vital Signs Date Time Temp Pulse Resp B/P Pulse Ox O2 Delivery O2 Flow Rate FiO2 08/08/16 14:00 75 20 92/45 100 Room Air 08/08/16 13:00 79 20 112/56 100 Room Air 08/08/16 12:00 98.6 81 20 110/50 100 Room Air 08/08/16 12:00 87 08/08/16 11:00 83 20 128/58 100 Room Air 08/08/16 10:00 88 20 95/40 99 Room Air 08/08/16 09:00 88 22 119/47 99 Room Air 08/08/16 08:42 80/43 08/08/16 08:42 85 80/43 08/08/16 08:00 79 08/08/16 08:00 82 13 80/42 97 Room Air 08/08/16 07:00 98.2 82 13 84/37 97 Room Air 08/08/16 06:00 86 23 107/44 99 Room Air 08/08/16 05:00 76 17 76/38 97 Room Air 08/08/16 04:00 97.6 82 15 90/38 98 Room Air 08/08/16 04:00 82 08/08/16 03:00 79 16 78/39 98 Room Air 08/08/16 02:00 85 22 95/43 99 Room Air 08/08/16 01:00 97.7 91 22 99/48 98 Room Air 08/08/16 00:00 88 24 82/32 99 Room Air 08/08/16 00:00 88 08/07/16 23:00 80 17 89/39 98 Room Air 08/07/16 22:00 83 14 91/42 99 Room Air 08/07/16 21:00 83 21 87/37 98 Room Air 08/07/16 20:00 97.6 83 19 86/35 98 Room Air 08/07/16 19:00 82 21 98/42 100 Room Air 08/07/16 18:00 89 23 80/40 100 Room Air 08/07/16 17:30 Room Air 08/07/16 17:23 80/39 08/07/16 17:00 84 25 88/60 100 Room Air 08/07/16 16:00 98.1 82 22 90/54 100 Room Air 08/07/16 16:00 82 08/07/16 15:00 96 25 102/50 100 Room Air Intake and Output 08/07/16 08/08/16 18:59 06:59 Intake Total 1310 ml 1150 ml Output Total 150 ml Balance 1160 ml 1150 ml Intake Oral 60 ml Blood Product 250 ml 1150 ml Hemodialysis 1000 ml Output Emesis 150 ml # Bowel Movements 4 1 Laboratory Tests 08/08/16 05:20: White Blood Count 9.9, Red Blood Count 1.89L, Hemoglobin 5.9*L, Hematocrit 18.2L , Mean Corpuscular Volume 96, Mean Corpuscular Hemoglobin 31.1H, Mean Corpuscular Hemoglobin Concent 32.3, Red Cell Distribution Width 15.2H, Platelet Count 86L, Mean Platelet Volume 7.8, Neutrophils (%) (Auto) , Lymphocytes (%) (Auto) , Monocytes (%) (Auto) , Eosinophils (%) (Auto) , Basophils (%) (Auto) , Differential Total Cells Counted 100, Neutrophils % ( Manual) 86H, Lymphocytes % (Manual) 9L, Monocytes % (Manual) 5, Eosinophils % ( Manual) 0, Basophils % (Manual) 0, Band Neutrophils 0, Platelet Estimate DecreasedL, Platelet Morphology Normal, Hypochromasia 1+, Anisocytosis 1+ Height (Feet): 5 Height (Inches): 5.00 Weight (Pounds): 108 Objective Debilitated AA man NCAT supple CTA RRR Abd soft ND NT, GT with some dark drainage - lavaged clear no edema KAYDEN MORALES Aug 08, 2016 14:36
[2016-08-08 17:33] LABS: MEAN CORPUSCULAR HEMOGLOBIN 32.9 PG (27.0-31.0); MEAN CORPUSCULAR HGB CONC 35.4 G/DL (32.0-36.0); MEAN CORPUSCULAR VOLUME 93 FL (80-99); MEAN PLATELET VOLUME 7.1 FL (6.5-10.1); PLATELET COUNT 76 K/UL (150-450); RED BLOOD COUNT 2.68 M/UL (4.70-6.10); RED CELL DISTRIBUTION WIDTH 15.1 % (11.6-14.8); WHITE BLOOD COUNT 8.3 K/UL (4.8-10.8)
--- NOTE | 2016-08-08 17:51 | Nephrology Progress Note ---
Assessment/Plan Problem List: (1) ESRD (end stage renal disease) on dialysis (2) DM (diabetes mellitus) (3) HTN (hypertension) (4) Anemia (5) Gastrointestinal hemorrhage Plan follow H/H HD on Sat Discussed with RN Subjective Subjective In NAD Objective Objective Last 24 Hour Vital Signs Date Time Temp Pulse Resp B/P Pulse Ox O2 Delivery O2 Flow Rate FiO2 08/08/16 17:41 100/53 08/08/16 16:00 75 08/08/16 14:00 75 20 92/45 100 Room Air 08/08/16 13:00 79 20 112/56 100 Room Air 08/08/16 12:00 98.6 81 20 110/50 100 Room Air 08/08/16 12:00 87 08/08/16 11:00 83 20 128/58 100 Room Air 08/08/16 10:00 88 20 95/40 99 Room Air 08/08/16 09:00 88 22 119/47 99 Room Air 08/08/16 08:42 80/43 08/08/16 08:42 85 80/43 08/08/16 08:00 79 08/08/16 08:00 82 13 80/42 97 Room Air 08/08/16 07:00 98.2 82 13 84/37 97 Room Air 08/08/16 06:00 86 23 107/44 99 Room Air 08/08/16 05:00 76 17 76/38 97 Room Air 08/08/16 04:00 97.6 82 15 90/38 98 Room Air 08/08/16 04:00 82 08/08/16 03:00 79 16 78/39 98 Room Air 08/08/16 02:00 85 22 95/43 99 Room Air 08/08/16 01:00 97.7 91 22 99/48 98 Room Air 08/08/16 00:00 88 24 82/32 99 Room Air 08/08/16 00:00 88 08/07/16 23:00 80 17 89/39 98 Room Air 08/07/16 22:00 83 14 91/42 99 Room Air 08/07/16 21:00 83 21 87/37 98 Room Air 08/07/16 20:00 97.6 83 19 86/35 98 Room Air 08/07/16 19:00 82 21 98/42 100 Room Air 08/07/16 18:00 89 23 80/40 100 Room Air Intake and Output 08/07/16 08/08/16 19:00 07:00 Intake Total 1560 ml 900 ml Output Total 150 ml Balance 1410 ml 900 ml Intake Oral 60 ml Blood Product 500 ml 900 ml Hemodialysis 1000 ml Emesis 150 ml # Bowel Movements 4 1 Laboratory Tests 08/08/16 05:20: White Blood Count 9.9, Red Blood Count 1.89L, Hemoglobin 5.9*L, Hematocrit 18.2L , Mean Corpuscular Volume 96, Mean Corpuscular Hemoglobin 31.1H, Mean Corpuscular Hemoglobin Concent 32.3, Red Cell Distribution Width 15.2H, Platelet Count 86L, Mean Platelet Volume 7.8, Neutrophils (%) (Auto) , Lymphocytes (%) (Auto) , Monocytes (%) (Auto) , Eosinophils (%) (Auto) , Basophils (%) (Auto) , Differential Total Cells Counted 100, Neutrophils % ( Manual) 86H, Lymphocytes % (Manual) 9L, Monocytes % (Manual) 5, Eosinophils % ( Manual) 0, Basophils % (Manual) 0, Band Neutrophils 0, Platelet Estimate DecreasedL, Platelet Morphology Normal, Hypochromasia 1+, Anisocytosis 1+ 08/08/16 17:10: White Blood Count 8.3, Red Blood Count 2.68L, Hemoglobin 8.8#L, Hematocrit 24.9# L, Mean Corpuscular Volume 93, Mean Corpuscular Hemoglobin 32.9H, Mean Corpuscular Hemoglobin Concent 35.4, Red Cell Distribution Width 15.1H, Platelet Count 76L, Mean Platelet Volume 7.1, Neutrophils (%) (Auto) , Lymphocytes (%) (Auto) , Monocytes (%) (Auto) , Eosinophils (%) (Auto) , Basophils (%) (Auto) , Neutrophils % (Manual) [Pending], Lymphocytes % (Manual) [Pending], Platelet Estimate [Pending], Platelet Morphology [Pending] Height (Feet): 5 Height (Inches): 5.00 Weight (Pounds): 108 Cardiovascular: normal rate Respiratory/Chest: lungs clear Extremities: other - no edema ROLAND FOX Aug 08, 2016 17:51
[2016-08-08 20:05] LABS: ANISOCYTOSIS 1+; LYMPHOCYTES % (MANUAL) 14 % (20-45); NEUTROPHILS % (MANUAL) 81 % (45-75); OVALOCYTES 1+; TOTAL CELLS COUNTED 100
[2016-08-08 20:06] LABS: BAND NEUTROPHILS % (MANUAL) 0 % (0-8); BASOPHILS % (MANUAL) 0 % (0-2); EOSINOPHILS % (MANUAL) 0 % (0-3); PLATELET ESTIMATE DECREASED; PLATELET MORPHOLOGY NORMAL
[2016-08-08 23:25] LABS: MEAN CORPUSCULAR HGB CONC 34.9 G/DL (32.0-36.0); MEAN CORPUSCULAR VOLUME 95 FL (80-99); MEAN PLATELET VOLUME 7.1 FL (6.5-10.1); PLATELET COUNT 74 K/UL (150-450); RED BLOOD COUNT 2.68 M/UL (4.70-6.10); RED CELL DISTRIBUTION WIDTH 15.6 % (11.6-14.8); WHITE BLOOD COUNT 6.8 K/UL (4.8-10.8)
[2016-08-09] VITALS (24 sets, daily range): BP systolic 90–125; BP diastolic 42–56
[2016-08-09 04:58] LABS: MEAN CORPUSCULAR HGB CONC 34.1 G/DL (32.0-36.0); MEAN CORPUSCULAR VOLUME 94 FL (80-99); MEAN PLATELET VOLUME 7.2 FL (6.5-10.1); PLATELET COUNT 79 K/UL (150-450); RED BLOOD COUNT 2.19 M/UL (4.70-6.10); RED CELL DISTRIBUTION WIDTH 15.5 % (11.6-14.8); WHITE BLOOD COUNT 6.1 K/UL (4.8-10.8)
[2016-08-09] MEDS: Levothyroxine 25mcg tab ORAL SCH (06:05)
[2016-08-09] MEDS: Prochlorperazine 10mg tab ORAL SCH ×3 (06:05→16:56)
[2016-08-09] MEDS: Amiodarone 200mg tab ORAL SCH (08:12)
[2016-08-09] MEDS: Pantoprazole Inj IVP SCH ×2 (08:12→20:38)
[2016-08-09] MEDS: Pred Forte 1% Opth Susp 1ml RIGHT EYE SCH ×4 (08:12→20:38)
[2016-08-09] MEDS: Cosopt Opth Soln 10 mL Btl RIGHT EYE SCH ×2 (08:12→17:36)
[2016-08-09] MEDS: Brimonidine 0.2% Opth Sol RIGHT EYE SCH ×2 (08:12→17:36)
--- NOTE | 2016-08-09 08:16 | General Progress Note ---
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 SNOMED: 29612651 (3) Chronic renal failure syndrome ICD Codes: N18.9 - Chronic kidney disease, unspecified SNOMED: 74361594 (4) Anemia ICD Codes: D64.9 - Anemia, unspecified SNOMED: 994748741 (5) Vomiting ICD Codes: R11.10 - Vomiting, unspecified SNOMED: 123360461 Qualifiers: Qualified Codes: K92.0 - Hematemesis; R11.0 - Nausea (6) Gastrointestinal hemorrhage ICD Codes: K92.2 - Gastrointestinal hemorrhage, unspecified SNOMED: 91116889 Qualifiers: Qualified Codes: K92.2 - Gastrointestinal hemorrhage, unspecified Status: stable Assessment/Plan PPI rx transfuse 1 more units prbc GI follow up egd tomorrow HD per renal critical and guarded Subjective ROS Limited/Unobtainable: No Constitutional: Reports: malaise, weakness HEENT: Reports: no symptoms Cardiovascular: Reports: no symptoms Respiratory: Reports: no symptoms Gastrointestinal/Abdominal: Reports: tarry stools Genitourinary: Reports: no symptoms Neurologic/Psychiatric: Reports: pre-existing deficit Endocrine: Reports: no symptoms Hematologic/Lymphatic: Reports: anemia Allergies: Coded Allergies: No Known Allergies (Unverified , 10/25/11) All Systems: reviewed and negative except above Subjective still with melena. down to 7 from 8.8 Still with melena. GI lab not availavle for endoscopy yesterday Objective Last 24 Hour Vital Signs Date Time Temp Pulse Resp B/P Pulse Ox O2 Delivery O2 Flow Rate FiO2 08/09/16 07:00 67 16 103/46 98 Room Air 08/09/16 06:00 64 21 91/43 98 Room Air 08/09/16 05:00 70 18 105/46 99 Room Air 08/09/16 04:00 97.2 78 16 107/45 99 Room Air 08/09/16 04:00 78 08/09/16 03:00 64 16 99/44 99 Room Air 08/09/16 02:00 67 19 107/52 99 Room Air 08/09/16 01:00 66 14 93/44 99 Room Air 08/09/16 00:00 70 08/09/16 00:00 97.7 70 19 117/52 99 Room Air 08/08/16 23:00 76 23 106/54 99 Room Air 08/08/16 22:00 68 18 102/56 99 Room Air 08/08/16 21:00 68 15 95/43 99 Room Air 08/08/16 20:00 69 08/08/16 20:00 69 16 98/58 98 Room Air 08/08/16 19:00 78 17 90/38 97 Room Air 08/08/16 18:00 78 17 138/56 97 Room Air 08/08/16 17:41 100/53 08/08/16 17:00 75 16 125/53 98 Room Air 08/08/16 16:00 75 08/08/16 16:00 78 15 123/61 99 Room Air 08/08/16 15:00 75 15 100/53 97 Room Air 08/08/16 14:00 75 20 92/45 100 Room Air 08/08/16 13:00 79 20 112/56 100 Room Air 08/08/16 12:00 98.6 81 20 110/50 100 Room Air 08/08/16 12:00 87 08/08/16 11:00 83 20 128/58 100 Room Air 08/08/16 10:00 88 20 95/40 99 Room Air 08/08/16 09:00 88 22 119/47 99 Room Air 08/08/16 08:42 80/43 08/08/16 08:42 85 80/43 Intake and Output 08/08/16 08/09/16 19:00 07:00 Intake Total 1020 ml 350 ml Output Total 50 ml Balance 970 ml 350 ml Intake Oral 250 ml 350 ml Blood Product 770 ml Output Urine Total 0 ml Gastric Drainage Total 50 ml # Bowel Movements 4 8 Laboratory Tests 08/08/16 17:10: White Blood Count 8.3, Red Blood Count 2.68L, Hemoglobin 8.8#L, Hematocrit 24.9# L, Mean Corpuscular Volume 93, Mean Corpuscular Hemoglobin 32.9H, Mean Corpuscular Hemoglobin Concent 35.4, Red Cell Distribution Width 15.1H, Platelet Count 76L, Mean Platelet Volume 7.1, Neutrophils (%) (Auto) , Lymphocytes (%) (Auto) , Monocytes (%) (Auto) , Eosinophils (%) (Auto) , Basophils (%) (Auto) , Differential Total Cells Counted 100, Neutrophils % ( Manual) 81H, Lymphocytes % (Manual) 14L, Monocytes % (Manual) 5, Eosinophils % ( Manual) 0, Basophils % (Manual) 0, Band Neutrophils 0, Platelet Estimate DecreasedL, Platelet Morphology Normal, Anisocytosis 1+, Ovalocytes 1+ 08/08/16 23:00: White Blood Count 6.8, Red Blood Count 2.68L, Hemoglobin 8.8L, Hematocrit 25.3L , Mean Corpuscular Volume 95, Mean Corpuscular Hemoglobin 33.0H, Mean Corpuscular Hemoglobin Concent 34.9, Red Cell Distribution Width 15.6H, Platelet Count 74L, Mean Platelet Volume 7.1, Neutrophils (%) (Auto) , Lymphocytes (%) (Auto) , Monocytes (%) (Auto) , Eosinophils (%) (Auto) , Basophils (%) (Auto) 08/09/16 04:00: White Blood Count 6.1, Red Blood Count 2.19L, Hemoglobin 7.0L, Hematocrit 20.5L , Mean Corpuscular Volume 94, Mean Corpuscular Hemoglobin 32.0H, Mean Corpuscular Hemoglobin Concent 34.1, Red Cell Distribution Width 15.5H, Platelet Count 79L, Mean Platelet Volume 7.2, Neutrophils (%) (Auto) , Lymphocytes (%) (Auto) , Monocytes (%) (Auto) , Eosinophils (%) (Auto) , Basophils (%) (Auto) Height (Feet): 5 Height (Inches): 5.00 Weight (Pounds): 108 Objective General Appearance: WD/WN, alert Neck: supple Cardiovascular: regular rhythm Respiratory/Chest: lungs clear Abdomen: normal bowel sounds, non tender, soft, no organomegaly Edema: no edema noted Arm (L), no edema noted Arm (R), no edema noted Leg (L), no edema noted Leg (R), no edema noted Pedal (L), no edema noted Pedal (R), no edema noted Generalized Neurologic: alert, oriented x 3, responsive MATTHEW FERRARO Aug 09, 2016 08:16
[2016-08-09] MEDS: Losartan 50mg tab ORAL SCH ×2 (09:00→17:37)
--- NOTE | 2016-08-09 17:36 | Nephrology Progress Note ---
Assessment/Plan Problem List: (1) ESRD (end stage renal disease) on dialysis (2) DM (diabetes mellitus) (3) HTN (hypertension) (4) Anemia (5) Gastrointestinal hemorrhage Plan Transfuse follow H/H HD Tomorrow Discussed with RN Await Endoscopy Subjective Subjective Seen in ICU Objective Objective Last 24 Hour Vital Signs Date Time Temp Pulse Resp B/P Pulse Ox O2 Delivery O2 Flow Rate FiO2 08/09/16 17:00 66 12 108/50 99 Room Air 08/09/16 16:00 70 08/09/16 16:00 97.8 72 16 105/47 100 Room Air 08/09/16 15:00 66 16 95/45 100 Room Air 08/09/16 14:00 70 15 114/52 100 Room Air 08/09/16 13:00 97.7 64 15 96/46 100 Room Air 08/09/16 12:00 66 15 105/50 100 Room Air 08/09/16 12:00 68 08/09/16 11:00 67 16 90/42 99 Room Air 08/09/16 10:00 66 16 96/47 99 Room Air 08/09/16 09:00 67 18 116/49 100 Room Air 08/09/16 09:00 102/45 08/09/16 09:00 69 102/42 08/09/16 08:00 69 08/09/16 08:00 97.6 67 16 117/51 98 Room Air 08/09/16 07:00 67 16 103/46 98 Room Air 08/09/16 06:00 64 21 91/43 98 Room Air 08/09/16 05:00 70 18 105/46 99 Room Air 08/09/16 04:00 97.2 78 16 107/45 99 Room Air 08/09/16 04:00 78 08/09/16 03:00 64 16 99/44 99 Room Air 08/09/16 02:00 67 19 107/52 99 Room Air 08/09/16 01:00 66 14 93/44 99 Room Air 08/09/16 00:00 70 08/09/16 00:00 97.7 70 19 117/52 99 Room Air 08/08/16 23:00 76 23 106/54 99 Room Air 08/08/16 22:00 68 18 102/56 99 Room Air 08/08/16 21:00 68 15 95/43 99 Room Air 08/08/16 20:00 69 08/08/16 20:00 69 16 98/58 98 Room Air 08/08/16 19:00 78 17 90/38 97 Room Air 08/08/16 18:00 78 17 138/56 97 Room Air 08/08/16 17:41 100/53 Intake and Output 08/08/16 08/09/16 19:00 07:00 Intake Total 1020 ml 350 ml Output Total 50 ml Balance 970 ml 350 ml Intake Oral 250 ml 350 ml Blood Product 770 ml Output Urine Total 0 ml Gastric Drainage Total 50 ml # Bowel Movements 4 8 Laboratory Tests 08/08/16 23:00: White Blood Count 6.8, Red Blood Count 2.68L, Hemoglobin 8.8L, Hematocrit 25.3L , Mean Corpuscular Volume 95, Mean Corpuscular Hemoglobin 33.0H, Mean Corpuscular Hemoglobin Concent 34.9, Red Cell Distribution Width 15.6H, Platelet Count 74L, Mean Platelet Volume 7.1, Neutrophils (%) (Auto) , Lymphocytes (%) (Auto) , Monocytes (%) (Auto) , Eosinophils (%) (Auto) , Basophils (%) (Auto) 08/09/16 04:00: White Blood Count 6.1, Red Blood Count 2.19L, Hemoglobin 7.0L, Hematocrit 20.5L , Mean Corpuscular Volume 94, Mean Corpuscular Hemoglobin 32.0H, Mean Corpuscular Hemoglobin Concent 34.1, Red Cell Distribution Width 15.5H, Platelet Count 79L, Mean Platelet Volume 7.2, Neutrophils (%) (Auto) , Lymphocytes (%) (Auto) , Monocytes (%) (Auto) , Eosinophils (%) (Auto) , Basophils (%) (Auto) Height (Feet): 5 Height (Inches): 5.00 Weight (Pounds): 108 Cardiovascular: normal rate Respiratory/Chest: lungs clear Extremities: other - no edema ROLAND FOX Aug 09, 2016 17:36
[2016-08-09 19:52] LABS: MEAN CORPUSCULAR HEMOGLOBIN 31.5 PG (27.0-31.0); MEAN CORPUSCULAR HGB CONC 35.1 G/DL (32.0-36.0); MEAN CORPUSCULAR VOLUME 90 FL (80-99); MEAN PLATELET VOLUME 7.8 FL (6.5-10.1); PLATELET COUNT 66 K/UL (150-450); RED BLOOD COUNT 2.76 M/UL (4.70-6.10); RED CELL DISTRIBUTION WIDTH 15.4 % (11.6-14.8); WHITE BLOOD COUNT 6.1 K/UL (4.8-10.8)
[2016-08-09 19:58] LABS: MONOCYTES % (AUTO) 7.7 % (1.0-10.0); NEUTROPHILS % (AUTO) 72.7 % (45.0-75.0)
[2016-08-09 19:59] LABS: BASOPHILS % (AUTO) 1.6 % (0.0-2.0)
[2016-08-10] VITALS (20 sets, daily range): BP systolic 90–130; BP diastolic 37–63
[2016-08-10 05:37] LABS: MEAN CORPUSCULAR HEMOGLOBIN 30.3 PG (27.0-31.0); MEAN CORPUSCULAR HGB CONC 33.6 G/DL (32.0-36.0); MEAN CORPUSCULAR VOLUME 90 FL (80-99); MEAN PLATELET VOLUME 8.2 FL (6.5-10.1); PLATELET COUNT 70 K/UL (150-450); RED BLOOD COUNT 2.64 M/UL (4.70-6.10); RED CELL DISTRIBUTION WIDTH 15.7 % (11.6-14.8)
[2016-08-10] MEDS: Prochlorperazine 10mg tab ORAL SCH ×3 (05:49→16:35)
[2016-08-10] MEDS: Levothyroxine 25mcg tab ORAL SCH (05:49)
[2016-08-10 05:51] LABS: CALCIUM 8.3 mg/dL (8.6-10.2); CREATININE 6.5 mg/dL (0.7-1.2); GLOMERULAR FILTRATION RATE 8.7 mL/min (>60); PHOSPHORUS 6.9 mg/dL (2.5-4.8); POTASSIUM 4.5 mEQ/L (3.4-4.9)
[2016-08-10] MEDS ORDERED: Propofol 10mg/ml 20ml IV ONE (08:00)
[2016-08-10] MEDS ORDERED: fentaNYL 100 mcg/2 mL IV ONE (08:00)
[2016-08-10] MEDS ORDERED: Midazolam 2mg/2ml Inj ONE (08:00)
[2016-08-10] MEDS ORDERED: NS 550ML IV ONE (08:15)
--- NOTE | 2016-08-10 08:19 | General Progress Note ---
Assessment/Plan Assessment/Plan Assessment - Recurrent UGI bleed, ? source - ? GT tract - s/p recent UGI bleed, with negative EGD except GT tract bleeding - current GT site w/o e/o bleeding - silver nitrate not used - ESRD - anemia - hypotension - gastroparesis - recurrent vomiting syndrome Recommendations - Continue with RBC transfusion PRN - monitor CBC - PPI - Will proceed with EGD today - will remove PEG at time of EGD - re-evaluate for N/V after EGD Subjective Allergies: Coded Allergies: No Known Allergies (Unverified , 10/25/11) Subjective NPO for EGD patient requests GT to be removed tolerating PO diet Objective Last 24 Hour Vital Signs Date Time Temp Pulse Resp B/P Pulse Ox O2 Delivery O2 Flow Rate FiO2 08/10/16 07:50 Room Air 08/10/16 07:00 63 19 119/51 100 Room Air 08/10/16 06:00 63 19 108/44 100 Room Air 08/10/16 05:00 68 17 121/55 100 Room Air 08/10/16 04:40 Room Air 08/10/16 04:00 75 08/10/16 04:00 97.6 75 22 130/59 100 Room Air 08/10/16 03:00 72 18 127/54 100 Room Air 08/10/16 02:00 62 21 102/48 100 Room Air 08/10/16 01:00 67 20 124/58 100 Room Air 08/10/16 00:00 67 08/10/16 00:00 97.2 67 16 127/55 100 Room Air 08/09/16 23:00 69 23 125/51 100 Room Air 08/09/16 22:00 68 14 92/45 100 Room Air 08/09/16 21:00 63 14 109/49 99 Room Air 08/09/16 20:00 62 08/09/16 20:00 97.7 62 16 97/49 98 Room Air 08/09/16 19:00 64 15 114/53 100 Room Air 08/09/16 18:00 72 18 125/56 99 Room Air 08/09/16 17:37 105/51 08/09/16 17:00 66 12 108/50 99 Room Air 08/09/16 16:00 70 08/09/16 16:00 97.8 72 16 105/47 100 Room Air 08/09/16 15:00 66 16 95/45 100 Room Air 08/09/16 14:00 70 15 114/52 100 Room Air 08/09/16 13:00 97.7 64 15 96/46 100 Room Air 08/09/16 12:00 66 15 105/50 100 Room Air 08/09/16 12:00 68 08/09/16 11:00 67 16 90/42 99 Room Air 08/09/16 10:00 66 16 96/47 99 Room Air 08/09/16 09:00 67 18 116/49 100 Room Air 08/09/16 09:00 102/45 08/09/16 09:00 69 102/42 Intake and Output 08/09/16 08/10/16 19:00 07:00 Intake Total 670 ml 200 ml Output Total 150 ml Balance 520 ml 200 ml Intake Oral 220 ml 200 ml Blood Product 450 ml Emesis 150 ml # Bowel Movements 10 4 Laboratory Tests 08/09/16 19:25: White Blood Count 6.1, Red Blood Count 2.76L, Hemoglobin 8.7L, Hematocrit 24.7L , Mean Corpuscular Volume 90, Mean Corpuscular Hemoglobin 31.5H, Mean Corpuscular Hemoglobin Concent 35.1, Red Cell Distribution Width 15.4H, Platelet Count 66L, Mean Platelet Volume 7.8, Neutrophils (%) (Auto) 72.7, Lymphocytes (%) (Auto) 17.0L, Monocytes (%) (Auto) 7.7, Eosinophils (%) (Auto) 1.0, Basophils (%) (Auto) 1.6 08/10/16 05:00: White Blood Count 5.0, Red Blood Count 2.64L, Hemoglobin 8.0L, Hematocrit 23.8L , Mean Corpuscular Volume 90, Mean Corpuscular Hemoglobin 30.3, Mean Corpuscular Hemoglobin Concent 33.6, Red Cell Distribution Width 15.7H, Platelet Count 70L, Mean Platelet Volume 8.2, Neutrophils (%) (Auto) , Lymphocytes (%) (Auto) , Monocytes (%) (Auto) , Eosinophils (%) (Auto) , Basophils (%) (Auto) , Sodium Level 139, Potassium Level 4.5, Chloride Level 100 , Carbon Dioxide Level 27, Anion Gap 12, Blood Urea Nitrogen 75H, Creatinine 6.5H, Estimat Glomerular Filtration Rate 8.7, Glucose Level 135H, Calcium Level 8.3L, Phosphorus Level 6.9H, Albumin 2.4L Height (Feet): 5 Height (Inches): 4.00 Weight (Pounds): 107 Objective Debilitated AA man NCAT supple CTA RRR Abd soft ND NT, GT no edema KAYDEN MORALES Aug 10, 2016 08:19
--- NOTE | 2016-08-10 08:20 | Pre-Procedure Note/Attestation ---
Pre-Procedure Note/Attestation Complete Prior to Procedure Planned Procedure: not applicable Procedure Narrative: esophagogastroduodenoscopyFB removal, hemostasis, Indications for Procedure Pre-Operative Diagnosis: GIB Attestation I attest that I discussed the nature of the procedure; its benefits; risks and complications; and alternatives (and the risks and benefits of such alternatives ), prior to the procedure, with the patient (or the patient's legal new accounts representative). I attest that, if there was a reasonable possibility of needing a blood transfusion, the patient (or the patient's legal new accounts representative) was given the [facility] standardized written summary, pursuant to the [place] Blood Safety Act ([place] Health and Safety Code # 1645, as amended). I attest that I re-evaluated the patient just prior to the surgery and that there has been no change in the patient's H&P, except as documented below: KAYDEN MORALES Aug 10, 2016 08:20
--- NOTE | 2016-08-10 08:35 | Endoscopy Procedure Note ---
Endoscopy Procedure Note Indication for Procedure: GIB Procedures Performed: EGD, other Operative Findings/Diagnosis: GT removed, ulcer w/i tract, clipped Specimen: none Pt Tolerated Procedure Well: Yes Estimated Blood Loss: none Anesthesia: MAC, moderate sedation Medication Given: see anesthesia record Implant(s) used?: No 50 yrs or older w/o bx or poly: Not Applicable 10yrs. F/U not recommended: Not Applicable If not recommended, why?: KAYDEN MORALES Aug 10, 2016 08:35
--- NOTE | 2016-08-10 08:36 | Brief Operative Note ---
Immediate Post Operative Note Operative Note Chief Complaint: UGIB Pre-op Diagnosis: GIB Procedure: EGD/clip Post-op Diagnosis: ulcer under GT Post-op Diagnosis: same as pre-op Surgeon: Luiz Anesthesiologist: see report Anesthesia: MAC Specimen: yes Complications: none Condition: stable Estimated Blood Loss: none Drains: none Implant(s) used?: Yes Implant(s) used?: No KAYDEN MORALES Aug 10, 2016 08:36
--- NOTE | 2016-08-10 08:56 | Anethesia Preoperative Eval ---
Anesthesia Pre-op PMH/ROS General Date of Evaluation: Aug 10, 2016 Time of Evaluation: 08:10 Anesthesiologist: Mindy ASA Score: ASA 4 Mallampati Score Class I : Soft palate, uvula, fauces, pillars visible Class II: Soft palate, uvula, fauces visible Class III: Soft palate, base of uvula visible Class IV: Only hard plate visible Mallampati Classification: Class II Surgeon: Edelmira Diagnosis: GI bleed Surgical Procedure: EGD PEG tube removal Anesthesia History: none Family History: no anesthesia problems Allergies: Coded Allergies: No Known Allergies (Unverified , 10/25/11) Medications: see eMAR Past Medical History Cardiovascular: Reports: HTN, Denies: CAD, CT, arrhythmia, other, valve dz Pulmonary: Denies: COPD, CRISTINA, asthma, other Gastrointestinal/Genitourinary: Reports: ESRD - on HD last session today, GERD , Denies: CRI, other Neurologic/Psychiatric: Reports: depression/anxiety, Denies: CVA, TIA, dementia, other Endocrine: Reports: DM, hypothyroidism, Denies: other, steroids HEENT: Reports: glaucoma Hematology/Immune: Reports: anemia, Denies: DVT, bleeding disorder, other Musculoskeletal/Integumentary: Denies: DDD, DJD, OA, RA, edema, other Other: other - malnourished PMH Narrative: as above PSxH Narrative: see chart Anesthesia Pre-op Phys. Exam Physician Exam Last Vital Signs Date Time Temp Pulse Resp B/P Pulse Ox O2 Delivery O2 Flow Rate FiO2 08/10/16 08:47 62 11 100/37 100 Nasal Cannula 3.0 08/10/16 08:42 97.0 Constitutional: NAD Neurologic: CN 2-12 intact Cardiovascular: RRR, no M/R/G Respiratory: CTA Gastrointestinal: S/NT/ND Airway Exam Mallampati Score: Class II MO: limited Neck: stiff Teeth: missing Dentures: no lower, no upper Anesthesia Pre-op A/P Labs Hematology Test 08/09/16 19:25 08/10/16 05:00 White Blood Count 6.1 K/UL (4.8-10.8) 5.0 K/UL (4.8-10.8) Red Blood Count 2.76 M/UL (4.70-6.10) L 2.64 M/UL (4.70-6.10) L Hemoglobin 8.7 G/DL (14.2-18.0) L 8.0 G/DL (14.2-18.0) L Hematocrit 24.7 % (42.0-52.0) L 23.8 % (42.0-52.0) L Mean Corpuscular Volume 90 FL (80-99) 90 FL (80-99) Mean Corpuscular Hemoglobin 31.5 PG (27.0-31.0) H 30.3 PG (27.0-31.0) Mean Corpuscular Hemoglobin Concent 35.1 G/DL (32.0-36.0) 33.6 G/DL (32.0-36.0) Red Cell Distribution Width 15.4 % (11.6-14.8) H 15.7 % (11.6-14.8) H Platelet Count 66 K/UL (150-450) L 70 K/UL (150-450) L Mean Platelet Volume 7.8 FL (6.5-10.1) 8.2 FL (6.5-10.1) Neutrophils (%) (Auto) 72.7 % (45.0-75.0) % (45.0-75.0) Lymphocytes (%) (Auto) 17.0 % (20.0-45.0) L % (20.0-45.0) Monocytes (%) (Auto) 7.7 % (1.0-10.0) % (1.0-10.0) Eosinophils (%) (Auto) 1.0 % (0.0-3.0) % (0.0-3.0) Basophils (%) (Auto) 1.6 % (0.0-2.0) % (0.0-2.0) Chemistry Test 08/10/16 05:00 Sodium Level 139 mEQ/L (135-145) Potassium Level 4.5 mEQ/L (3.4-4.9) Chloride Level 100 mEQ/L (98-107) Carbon Dioxide Level 27 mEQ/L (20-30) Anion Gap 12 (5-15) Blood Urea Nitrogen 75 mg/dL (7-23) H Creatinine 6.5 mg/dL (0.7-1.2) H Estimat Glomerular Filtration Rate 8.7 mL/min (>60) Glucose Level 135 mg/dL (74-106) H Calcium Level 8.3 mg/dL (8.6-10.2) L Phosphorus Level 6.9 mg/dL (2.5-4.8) H Albumin 2.4 g/dL (3.5-5.2) L Studies Pre-op Studies: EKG - SR Risk Assessment & Plan Assessment: ASA 4 Plan: MAC Status Change Before Surgery: No Pre-Antibiotics Drug: none SHERWIN FONTAINE M.D. Aug 10, 2016 08:56
--- NOTE | 2016-08-10 08:58 | Immediate Post-Op Evaluation ---
Immediate Post-Op Evalulation Immediate Post-Op Evalulation Procedure: EGD PEG tube removal Date of Evaluation: Aug 10, 2016 Time of Evaluation: 08:56 IV Fluids: 300 Blood Products: none Estimated Blood Loss: min Urinary Output: none Blood Pressure Systolic: 116 Blood Pressure Diastolic: 52 Pulse Rate: 72 Respiratory Rate: 20 O2 Sat by Pulse Oximetry: 99 Temperature (Fahrenheit): 97.1 Pain Score (1-10): 1 Nausea: No Vomiting: No Complications none Patient Status: reacts, patent, none Hydration Status: adequate Drug: none SHERWIN FONTAINE M.D. Aug 10, 2016 08:58
[2016-08-10] MEDS: Losartan 50mg tab ORAL SCH ×2 (09:00→17:13)
[2016-08-10] MEDS ORDERED: fentaNYL 100 mcg/2 mL IV PRN (09:00)
--- NOTE | 2016-08-10 09:28 | 48 Hour Post Anesthesia Eval ---
Post Anesthesia Evaluation Procedure: EGD PEG tube removal Date of Evaluation: Aug 10, 2016 Time of Evaluation: 09:27 Blood Pressure Systolic: 116 0: 52 Pulse Rate: 64 Respiratory Rate: 20 Temperature (Fahrenheit): 97.2 O2 Sat by Pulse Oximetry: 98 Airway: patent Nausea: No Vomiting: No Pain Intensity: 2 Hydration Status: adequate Cardiopulmonary Status: stable Mental Status/LOC: patient returned to baseline Follow-up Care/Observations: n/a Post-Anesthesia Complications: none Follow-up care needed: N/A SHERWIN FONTAINE M.D. Aug 10, 2016 09:28
--- NOTE | 2016-08-10 09:38 | Consultation ---
DATE OF CONSULTATION: 08/07/2016 CHIEF COMPLAINT: I was asked to see this patient for evaluation of recurrent gastrointestinal bleeding. HISTORY OF PRESENT ILLNESS: The patient is a pleasant 61-year-old man with chronic renal failure, on dialysis. He also has a chronic recurrent vomiting syndrome, who comes in with gastrointestinal bleeding. The patient was recently admitted for the same issue and at that time underwent an endoscopy, which did not show any clear ulcer-type lesions but instead showed bleeding from the gastrostomy tract. In fact, the bleeding was verified with gastrostomy tube catheter and treatment was directed at the gastrostomy tract using silver nitrate sticks. The patient responded to treatment and was discharged. However, he comes in with severe anemia and the same problem again today. He denies any abdominal pain, nausea, or vomiting. He does have hematemesis. He had some coffee-ground emesis. PAST MEDICAL HISTORY: History of cataract surgery; hypertension; end-stage renal disease, on hemodialysis; diabetes; gastroparesis; cyclic vomiting syndrome; status post gastrojejunostomy catheter, which later had to be changed to gastrostomy catheter on last admission; status post cholecystectomy; and status post AV fistula placement. ALLERGIES: None. FAMILY HISTORY: Noncontributory. SOCIAL HISTORY: The patient resides in his home in the [facility]. He does not smoke or drink. REVIEW OF SYSTEMS: Otherwise negative. PHYSICAL EXAMINATION: GENERAL: This is a pleasant thin man, seen in his room in the ICU HEENT: Normocephalic and atraumatic. Sclerae are anicteric. Oropharynx is clear. NECK: Supple. CHEST: Clear to auscultation. CARDIOVASCULAR: Regular rate. ABDOMEN: Soft with good bowel sounds. Gastrostomy tube appeared to be in good position. It was and no blood was seen . The nurses instructed to place the catheter to low intermittent suction. EXTREMITIES: No edema. LABORATORY DATA: Noted. ASSESSMENT: This patient presents with recurrent upper gastrointestinal bleeding, which maybe of same pathology that happened just a few weeks ago on prior admission. Based on recent experience, I the patient for another endoscopy since it is likely to show the same result. Instead, I will order . Should there be persistent emesis of blood, repeat endoscopy will be considered. In the meantime, I would transfuse the patient as necessary and follow his hematocrit closely. RECOMMENDATIONS: Per above discussion and per orders written in the chart. Thank you for asking me to participate in the care of this patient. Royce Dee M.D. DR: ADONAY JOB#: [id number] CC:
[2016-08-10] MEDS: Cosopt Opth Soln 10 mL Btl RIGHT EYE SCH ×2 (09:41→21:10)
[2016-08-10] MEDS: Pred Forte 1% Opth Susp 1ml RIGHT EYE SCH ×4 (09:41→21:10)
[2016-08-10] MEDS: Pantoprazole Inj IVP SCH (09:42)
[2016-08-10] MEDS: Amiodarone 200mg tab ORAL SCH (09:42)
[2016-08-10] MEDS: Brimonidine 0.2% Opth Sol RIGHT EYE SCH ×2 (09:42→17:13)
[2016-08-10] MEDS ORDERED: NS 275ml ONE (10:21)
[2016-08-10] MEDS ORDERED: Tubing Blood Filter IV ONE (10:21)
--- NOTE | 2016-08-10 11:42 | General Progress Note ---
Assessment/Plan Problem List: (1) Hypertension ICD Codes: I10 - Essential (primary) hypertension SNOMED: 47916155 (2) Diabetic gastroparesis ICD Codes: E11.43 - Type 2 diabetes mellitus with diabetic autonomic (poly) neuropathy SNOMED: 36003902 (3) Chronic renal failure syndrome ICD Codes: N18.9 - Chronic kidney disease, unspecified SNOMED: 87364644 (4) Anemia ICD Codes: D64.9 - Anemia, unspecified SNOMED: 869908488 (5) Vomiting ICD Codes: R11.10 - Vomiting, unspecified SNOMED: 299915569 Qualifiers: Qualified Codes: K92.0 - Hematemesis; R11.0 - Nausea (6) Gastrointestinal hemorrhage ICD Codes: K92.2 - Gastrointestinal hemorrhage, unspecified SNOMED: 85336308 Qualifiers: Qualified Codes: K92.2 - Gastrointestinal hemorrhage, unspecified Status: stable, progressing Assessment/Plan PPI rx transfuse prn GI follow up monitor for bleeding. HD per renal ok to monitored bed. start pos Subjective ROS Limited/Unobtainable: No Constitutional: Reports: malaise, weakness HEENT: Reports: no symptoms Cardiovascular: Reports: no symptoms Respiratory: Reports: no symptoms Gastrointestinal/Abdominal: Reports: tarry stools Genitourinary: Reports: no symptoms Neurologic/Psychiatric: Reports: no symptoms Endocrine: Reports: no symptoms Hematologic/Lymphatic: Reports: no symptoms Allergies: Coded Allergies: No Known Allergies (Unverified , 10/25/11) All Systems: reviewed and negative except above Subjective melena better. h/h slightly lower today. s/p egd. gt removed Objective Last 24 Hour Vital Signs Date Time Temp Pulse Resp B/P Pulse Ox O2 Delivery O2 Flow Rate FiO2 08/10/16 11:00 64 20 120/47 100 Room Air 08/10/16 10:00 71 19 104/38 100 Room Air 08/10/16 09:40 60 19 90/46 100 Room Air 08/10/16 09:28 64 20 98 08/10/16 09:05 97.6 62 12 100/63 100 Nasal Cannula 3.0 08/10/16 09:00 90/40 08/10/16 09:00 59 90/40 08/10/16 08:58 72 20 99 08/10/16 08:52 62 12 101/40 100 Nasal Cannula 3.0 08/10/16 08:47 62 11 100/37 100 Nasal Cannula 3.0 08/10/16 08:42 97.0 61 20 99/57 100 Nasal Cannula 3.0 08/10/16 07:50 Room Air 08/10/16 07:30 70 08/10/16 07:00 63 19 119/51 100 Room Air 08/10/16 06:00 63 19 108/44 100 Room Air 08/10/16 05:00 68 17 121/55 100 Room Air 08/10/16 04:40 Room Air 08/10/16 04:00 75 08/10/16 04:00 97.6 75 22 130/59 100 Room Air 08/10/16 03:00 72 18 127/54 100 Room Air 08/10/16 02:00 62 21 102/48 100 Room Air 08/10/16 01:00 67 20 124/58 100 Room Air 08/10/16 00:00 67 08/10/16 00:00 97.2 67 16 127/55 100 Room Air 08/09/16 23:00 69 23 125/51 100 Room Air 08/09/16 22:00 68 14 92/45 100 Room Air 08/09/16 21:00 63 14 109/49 99 Room Air 08/09/16 20:00 62 08/09/16 20:00 97.7 62 16 97/49 98 Room Air 08/09/16 19:00 64 15 114/53 100 Room Air 08/09/16 18:00 72 18 125/56 99 Room Air 08/09/16 17:37 105/51 08/09/16 17:00 66 12 108/50 99 Room Air 08/09/16 16:00 70 08/09/16 16:00 97.8 72 16 105/47 100 Room Air 08/09/16 15:00 66 16 95/45 100 Room Air 08/09/16 14:00 70 15 114/52 100 Room Air 08/09/16 13:00 97.7 64 15 96/46 100 Room Air 08/09/16 12:00 66 15 105/50 100 Room Air 08/09/16 12:00 68 Intake and Output 08/09/16 08/10/16 19:00 07:00 Intake Total 670 ml 200 ml Output Total 150 ml Balance 520 ml 200 ml Intake Oral 220 ml 200 ml Blood Product 450 ml Emesis 150 ml # Bowel Movements 10 4 Laboratory Tests 08/09/16 19:25: White Blood Count 6.1, Red Blood Count 2.76L, Hemoglobin 8.7L, Hematocrit 24.7L , Mean Corpuscular Volume 90, Mean Corpuscular Hemoglobin 31.5H, Mean Corpuscular Hemoglobin Concent 35.1, Red Cell Distribution Width 15.4H, Platelet Count 66L, Mean Platelet Volume 7.8, Neutrophils (%) (Auto) 72.7, Lymphocytes (%) (Auto) 17.0L, Monocytes (%) (Auto) 7.7, Eosinophils (%) (Auto) 1.0, Basophils (%) (Auto) 1.6 08/10/16 05:00: White Blood Count 5.0, Red Blood Count 2.64L, Hemoglobin 8.0L, Hematocrit 23.8L , Mean Corpuscular Volume 90, Mean Corpuscular Hemoglobin 30.3, Mean Corpuscular Hemoglobin Concent 33.6, Red Cell Distribution Width 15.7H, Platelet Count 70L, Mean Platelet Volume 8.2, Neutrophils (%) (Auto) , Lymphocytes (%) (Auto) , Monocytes (%) (Auto) , Eosinophils (%) (Auto) , Basophils (%) (Auto) , Sodium Level 139, Potassium Level 4.5, Chloride Level 100 , Carbon Dioxide Level 27, Anion Gap 12, Blood Urea Nitrogen 75H, Creatinine 6.5H, Estimat Glomerular Filtration Rate 8.7, Glucose Level 135H, Calcium Level 8.3L, Phosphorus Level 6.9H, Albumin 2.4L Height (Feet): 5 Height (Inches): 4.00 Weight (Pounds): 107 Objective General Appearance: WD/WN, alert Neck: supple Cardiovascular: regular rhythm Respiratory/Chest: lungs clear Abdomen: normal bowel sounds, non tender, soft, no organomegaly Edema: no edema noted Arm (L), no edema noted Arm (R), no edema noted Leg (L), no edema noted Leg (R), no edema noted Pedal (L), no edema noted Pedal (R), no edema noted Generalized Neurologic: alert, oriented x 3, responsive MATTHEW FERRARO Aug 10, 2016 11:42
--- NOTE | 2016-08-10 11:43 | General Progress Note ---
Assessment/Plan Problem List: (1) Hypertension ICD Codes: I10 - Essential (primary) hypertension SNOMED: 19701037 (2) Diabetic gastroparesis ICD Codes: E11.43 - Type 2 diabetes mellitus with diabetic autonomic (poly) neuropathy SNOMED: 83444867 (3) Chronic renal failure syndrome ICD Codes: N18.9 - Chronic kidney disease, unspecified SNOMED: 93114992 (4) Anemia ICD Codes: D64.9 - Anemia, unspecified SNOMED: 972385666 (5) Vomiting ICD Codes: R11.10 - Vomiting, unspecified SNOMED: 507587488 Qualifiers: Qualified Codes: K92.0 - Hematemesis; R11.0 - Nausea (6) Gastrointestinal hemorrhage ICD Codes: K92.2 - Gastrointestinal hemorrhage, unspecified SNOMED: 97113362 Qualifiers: Qualified Codes: K92.2 - Gastrointestinal hemorrhage, unspecified Assessment/Plan PPI rx transfuse prn GI follow up monitor for bleeding. HD per renal ok to monitored bed. start pos Subjective Allergies: Coded Allergies: No Known Allergies (Unverified , 10/25/11) Subjective melena better. h/h slightly lower today. s/p egd. gt removed Objective Last 24 Hour Vital Signs Date Time Temp Pulse Resp B/P Pulse Ox O2 Delivery O2 Flow Rate FiO2 08/10/16 11:00 64 20 120/47 100 Room Air 08/10/16 10:00 71 19 104/38 100 Room Air 08/10/16 09:40 60 19 90/46 100 Room Air 08/10/16 09:28 64 20 98 08/10/16 09:05 97.6 62 12 100/63 100 Nasal Cannula 3.0 08/10/16 09:00 90/40 08/10/16 09:00 59 90/40 08/10/16 08:58 72 20 99 08/10/16 08:52 62 12 101/40 100 Nasal Cannula 3.0 08/10/16 08:47 62 11 100/37 100 Nasal Cannula 3.0 08/10/16 08:42 97.0 61 20 99/57 100 Nasal Cannula 3.0 08/10/16 07:50 Room Air 08/10/16 07:30 70 08/10/16 07:00 63 19 119/51 100 Room Air 08/10/16 06:00 63 19 108/44 100 Room Air 08/10/16 05:00 68 17 121/55 100 Room Air 08/10/16 04:40 Room Air 08/10/16 04:00 75 08/10/16 04:00 97.6 75 22 130/59 100 Room Air 08/10/16 03:00 72 18 127/54 100 Room Air 08/10/16 02:00 62 21 102/48 100 Room Air 08/10/16 01:00 67 20 124/58 100 Room Air 08/10/16 00:00 67 08/10/16 00:00 97.2 67 16 127/55 100 Room Air 08/09/16 23:00 69 23 125/51 100 Room Air 08/09/16 22:00 68 14 92/45 100 Room Air 08/09/16 21:00 63 14 109/49 99 Room Air 08/09/16 20:00 62 08/09/16 20:00 97.7 62 16 97/49 98 Room Air 08/09/16 19:00 64 15 114/53 100 Room Air 08/09/16 18:00 72 18 125/56 99 Room Air 08/09/16 17:37 105/51 08/09/16 17:00 66 12 108/50 99 Room Air 08/09/16 16:00 70 08/09/16 16:00 97.8 72 16 105/47 100 Room Air 08/09/16 15:00 66 16 95/45 100 Room Air 08/09/16 14:00 70 15 114/52 100 Room Air 08/09/16 13:00 97.7 64 15 96/46 100 Room Air 08/09/16 12:00 66 15 105/50 100 Room Air 08/09/16 12:00 68 Intake and Output 08/09/16 08/10/16 19:00 07:00 Intake Total 670 ml 200 ml Output Total 150 ml Balance 520 ml 200 ml Intake Oral 220 ml 200 ml Blood Product 450 ml Emesis 150 ml # Bowel Movements 10 4 Laboratory Tests 08/09/16 19:25: White Blood Count 6.1, Red Blood Count 2.76L, Hemoglobin 8.7L, Hematocrit 24.7L , Mean Corpuscular Volume 90, Mean Corpuscular Hemoglobin 31.5H, Mean Corpuscular Hemoglobin Concent 35.1, Red Cell Distribution Width 15.4H, Platelet Count 66L, Mean Platelet Volume 7.8, Neutrophils (%) (Auto) 72.7, Lymphocytes (%) (Auto) 17.0L, Monocytes (%) (Auto) 7.7, Eosinophils (%) (Auto) 1.0, Basophils (%) (Auto) 1.6 08/10/16 05:00: White Blood Count 5.0, Red Blood Count 2.64L, Hemoglobin 8.0L, Hematocrit 23.8L , Mean Corpuscular Volume 90, Mean Corpuscular Hemoglobin 30.3, Mean Corpuscular Hemoglobin Concent 33.6, Red Cell Distribution Width 15.7H, Platelet Count 70L, Mean Platelet Volume 8.2, Neutrophils (%) (Auto) , Lymphocytes (%) (Auto) , Monocytes (%) (Auto) , Eosinophils (%) (Auto) , Basophils (%) (Auto) , Sodium Level 139, Potassium Level 4.5, Chloride Level 100 , Carbon Dioxide Level 27, Anion Gap 12, Blood Urea Nitrogen 75H, Creatinine 6.5H, Estimat Glomerular Filtration Rate 8.7, Glucose Level 135H, Calcium Level 8.3L, Phosphorus Level 6.9H, Albumin 2.4L Height (Feet): 5 Height (Inches): 4.00 Weight (Pounds): 107 Objective General Appearance: WD/WN, alert Neck: supple Cardiovascular: regular rhythm Respiratory/Chest: lungs clear Abdomen: normal bowel sounds, non tender, soft, no organomegaly Edema: no edema noted Arm (L), no edema noted Arm (R), no edema noted Leg (L), no edema noted Leg (R), no edema noted Pedal (L), no edema noted Pedal (R), no edema noted Generalized Neurologic: alert, oriented x 3, responsive MATTHEW FERRARO Aug 10, 2016 11:43
--- NOTE | 2016-08-10 12:55 | Nephrology Progress Note ---
Assessment/Plan Problem List: (1) ESRD (end stage renal disease) on dialysis (2) DM (diabetes mellitus) (3) HTN (hypertension) (4) Anemia (5) Gastrointestinal hemorrhage Plan Transfuse PRN follow H/H HD 08/12 Discussed with RN Subjective Subjective Seen in ICU feels ok Objective Objective Last 24 Hour Vital Signs Date Time Temp Pulse Resp B/P Pulse Ox O2 Delivery O2 Flow Rate FiO2 08/10/16 12:00 98.1 60 20 110/39 100 Room Air 08/10/16 12:00 71 08/10/16 11:00 64 20 120/47 100 Room Air 08/10/16 10:00 71 19 104/38 100 Room Air 08/10/16 09:40 60 19 90/46 100 Room Air 08/10/16 09:28 64 20 98 08/10/16 09:05 97.6 62 12 100/63 100 Nasal Cannula 3.0 08/10/16 09:00 90/40 08/10/16 09:00 59 90/40 08/10/16 08:58 72 20 99 08/10/16 08:52 62 12 101/40 100 Nasal Cannula 3.0 08/10/16 08:47 62 11 100/37 100 Nasal Cannula 3.0 08/10/16 08:42 97.0 61 20 99/57 100 Nasal Cannula 3.0 08/10/16 07:50 Room Air 08/10/16 07:30 70 08/10/16 07:00 63 19 119/51 100 Room Air 08/10/16 06:00 63 19 108/44 100 Room Air 08/10/16 05:00 68 17 121/55 100 Room Air 08/10/16 04:40 Room Air 08/10/16 04:00 75 08/10/16 04:00 97.6 75 22 130/59 100 Room Air 08/10/16 03:00 72 18 127/54 100 Room Air 08/10/16 02:00 62 21 102/48 100 Room Air 08/10/16 01:00 67 20 124/58 100 Room Air 08/10/16 00:00 67 08/10/16 00:00 97.2 67 16 127/55 100 Room Air 08/09/16 23:00 69 23 125/51 100 Room Air 08/09/16 22:00 68 14 92/45 100 Room Air 08/09/16 21:00 63 14 109/49 99 Room Air 08/09/16 20:00 62 08/09/16 20:00 97.7 62 16 97/49 98 Room Air 08/09/16 19:00 64 15 114/53 100 Room Air 08/09/16 18:00 72 18 125/56 99 Room Air 08/09/16 17:37 105/51 08/09/16 17:00 66 12 108/50 99 Room Air 08/09/16 16:00 70 08/09/16 16:00 97.8 72 16 105/47 100 Room Air 08/09/16 15:00 66 16 95/45 100 Room Air 08/09/16 14:00 70 15 114/52 100 Room Air 08/09/16 13:00 97.7 64 15 96/46 100 Room Air Intake and Output 08/09/16 08/10/16 19:00 07:00 Intake Total 670 ml 200 ml Output Total 150 ml Balance 520 ml 200 ml Intake Oral 220 ml 200 ml Blood Product 450 ml Emesis 150 ml # Bowel Movements 10 4 Laboratory Tests 08/09/16 19:25: White Blood Count 6.1, Red Blood Count 2.76L, Hemoglobin 8.7L, Hematocrit 24.7L , Mean Corpuscular Volume 90, Mean Corpuscular Hemoglobin 31.5H, Mean Corpuscular Hemoglobin Concent 35.1, Red Cell Distribution Width 15.4H, Platelet Count 66L, Mean Platelet Volume 7.8, Neutrophils (%) (Auto) 72.7, Lymphocytes (%) (Auto) 17.0L, Monocytes (%) (Auto) 7.7, Eosinophils (%) (Auto) 1.0, Basophils (%) (Auto) 1.6 08/10/16 05:00: White Blood Count 5.0, Red Blood Count 2.64L, Hemoglobin 8.0L, Hematocrit 23.8L , Mean Corpuscular Volume 90, Mean Corpuscular Hemoglobin 30.3, Mean Corpuscular Hemoglobin Concent 33.6, Red Cell Distribution Width 15.7H, Platelet Count 70L, Mean Platelet Volume 8.2, Neutrophils (%) (Auto) , Lymphocytes (%) (Auto) , Monocytes (%) (Auto) , Eosinophils (%) (Auto) , Basophils (%) (Auto) , Sodium Level 139, Potassium Level 4.5, Chloride Level 100 , Carbon Dioxide Level 27, Anion Gap 12, Blood Urea Nitrogen 75H, Creatinine 6.5H, Estimat Glomerular Filtration Rate 8.7, Glucose Level 135H, Calcium Level 8.3L, Phosphorus Level 6.9H, Albumin 2.4L Height (Feet): 5 Height (Inches): 4.00 Weight (Pounds): 107 Cardiovascular: normal rate Respiratory/Chest: lungs clear Extremities: other - no edema ROLAND FOX Aug 10, 2016 12:55
[2016-08-10] MEDS ORDERED: Pred Forte 1% Opth Susp 1ml RIGHT EYE SCH ×2 (14:00→18:00)
[2016-08-10] MEDS ORDERED: Prochlorperazine 10mg tab ORAL SCH ×2 (16:30)
[2016-08-10] MEDS ORDERED: Losartan 50mg tab ORAL SCH ×2 (18:00)
[2016-08-10] MEDS ORDERED: Cosopt Opth Soln 10 mL Btl RIGHT EYE SCH ×2 (18:00)
[2016-08-10] MEDS ORDERED: Brimonidine 0.2% Opth Sol RIGHT EYE SCH ×2 (18:00)
[2016-08-10] MEDS ORDERED: Pantoprazole Inj IVP SCH ×2 (21:00)
--- NOTE | 2016-08-10 22:07 | Operative Note - Dictated ---
DATE OF OPERATION: 08/10/2016 GASTROLOGY PROCEDURE NOTE PROCEDURE: Upper gastroendoscopy with gastrostomy tube removal and Endoclip placement. SURGEON: Royce Dee M.D. ANESTHESIA: Please see the separate anesthesiologist notes for details. PRE-ENDOSCOPY DIAGNOSES: 1. Upper gastrointestinal bleeding. 2. The patient requested removal of gastrostomy tube. POST-ENDOSCOPIC DIAGNOSES: 1. No lesions seen in the upper gastrointestinal tract, especially under the gastrostomy tube to explain the bleeding. 2. Gastrostomy tube was grabbed with a snare, cut from the outside, and brought out through the mouth and removed. 3. Small gastric ulcer under the gastrostomy tube, which was treated with a single Endoclip placement. 4. No active bleeding identified. DESCRIPTION OF PROCEDURE: The procedure, its risks, indications, alternatives, and possible complications including, but not limited to bleeding, infection, perforation, , and anesthesia complications were explained to the patient and informed consent was obtained. The patient was then sedated in the supine position and a diagnostic upper endoscope was introduced into the oropharynx and advanced to the duodenum. The endoscope was removed and the findings were as mentioned above. The patient left the recovery in good condition. COMPLICATIONS: None. RECOMMENDATIONS: 1. Resume oral diet. 2. Monitor CBC. 3. Check and treat Helicobacter pylori if positive. Royce Dee M.D. DR: IBAN JOB#: [id number] CC:
[2016-08-11] VITALS: BP 129/63
[2016-08-11 04:00] VITALS: BP 116/53
[2016-08-11] MEDS: Levothyroxine 25mcg tab ORAL SCH (06:13)
[2016-08-11] MEDS: Prochlorperazine 10mg tab ORAL SCH ×3 (06:13→16:21)
[2016-08-11] MEDS ORDERED: Levothyroxine 25mcg tab ORAL SCH ×2 (06:30)
[2016-08-11 07:41] VITALS: BP 127/56
[2016-08-11 08:05] LABS: MEAN CORPUSCULAR HEMOGLOBIN 30.2 PG (27.0-31.0); MEAN CORPUSCULAR HGB CONC 32.9 G/DL (32.0-36.0); MEAN CORPUSCULAR VOLUME 92 FL (80-99); MEAN PLATELET VOLUME 7.2 FL (6.5-10.1); PLATELET COUNT 65 K/UL (150-450); RED BLOOD COUNT 2.81 M/UL (4.70-6.10); RED CELL DISTRIBUTION WIDTH 16.9 % (11.6-14.8); WHITE BLOOD COUNT 4.2 K/UL (4.8-10.8)
--- NOTE | 2016-08-11 08:30 | General Progress Note ---
Assessment/Plan Assessment/Plan Assessment - Recurrent UGI bleed from GT tract - s/p EGD with GT removal - ESRD - anemia - hypotension - gastroparesis - recurrent vomiting syndrome Recommendations - RBC transfusion PRN - monitor CBC - PPI - observe as inpatient another day - po diet Subjective Allergies: Coded Allergies: No Known Allergies (Unverified , 10/25/11) Subjective Feels OK walking around no N/V Objective Last 24 Hour Vital Signs Date Time Temp Pulse Resp B/P Pulse Ox O2 Delivery O2 Flow Rate FiO2 08/11/16 07:41 97.9 76 14 127/56 98 Room Air 08/11/16 04:00 98.8 66 20 116/53 98 Room Air 08/11/16 04:00 65 08/11/16 00:00 97.5 76 20 129/63 97 Room Air 08/10/16 23:00 68 08/10/16 20:00 63 08/10/16 20:00 97.5 61 19 119/53 100 Room Air 08/10/16 17:13 114/46 08/10/16 16:00 62 08/10/16 15:40 98.0 64 18 114/46 99 Room Air 08/10/16 14:00 72 19 120/37 100 Room Air 08/10/16 13:00 70 19 117/37 100 Room Air 08/10/16 12:00 98.1 60 20 110/39 100 Room Air 08/10/16 12:00 71 08/10/16 11:00 64 20 120/47 100 Room Air 08/10/16 10:00 71 19 104/38 100 Room Air 08/10/16 09:40 60 19 90/46 100 Room Air 08/10/16 09:28 64 20 98 08/10/16 09:05 97.6 62 12 100/63 100 Nasal Cannula 3.0 08/10/16 09:00 90/40 08/10/16 09:00 59 90/40 08/10/16 08:58 72 20 99 08/10/16 08:52 62 12 101/40 100 Nasal Cannula 3.0 08/10/16 08:47 62 11 100/37 100 Nasal Cannula 3.0 08/10/16 08:42 97.0 61 20 99/57 100 Nasal Cannula 3.0 Intake and Output 08/10/16 08/11/16 19:00 07:00 Intake Total 320 ml Output Total 2100 ml Balance -1780 ml Intake Oral 120 ml IV Total 200 ml Hemodialysis UF 2100 ml # Voids 1 # Bowel Movements 2 Laboratory Tests 08/11/16 07:10: White Blood Count 4.2L, Red Blood Count 2.81L, Hemoglobin 8.5L, Hematocrit 25.8L , Mean Corpuscular Volume 92, Mean Corpuscular Hemoglobin 30.2, Mean Corpuscular Hemoglobin Concent 32.9, Red Cell Distribution Width 16.9H, Platelet Count 65L, Mean Platelet Volume 7.2, Neutrophils (%) (Auto) , Lymphocytes (%) (Auto) , Monocytes (%) (Auto) , Eosinophils (%) (Auto) , Basophils (%) (Auto) , Neutrophils % (Manual) [Pending], Lymphocytes % (Manual) [Pending], Platelet Estimate [Pending], Platelet Morphology [Pending] Height (Feet): 5 Height (Inches): 4.00 Weight (Pounds): 107 Objective Debilitated AA man NCAT supple CTA RRR Abd soft ND NT, GT site closed no edema KAYDEN MORALES Aug 11, 2016 08:30
[2016-08-11] MEDS ORDERED: Amiodarone 200mg tab ORAL SCH ×2 (09:00→13:30)
[2016-08-11] MEDS: Amiodarone 200mg tab ORAL SCH (09:08)
[2016-08-11] MEDS: Cosopt Opth Soln 10 mL Btl RIGHT EYE SCH ×2 (09:08→20:57)
[2016-08-11] MEDS: Losartan 50mg tab ORAL SCH ×2 (09:08→17:08)
[2016-08-11] MEDS: Pred Forte 1% Opth Susp 1ml RIGHT EYE SCH ×4 (09:09→21:03)
[2016-08-11] MEDS: Brimonidine 0.2% Opth Sol RIGHT EYE SCH ×2 (09:09→17:08)
--- NOTE | 2016-08-11 10:05 | General Progress Note ---
Assessment/Plan Problem List: (1) Hypertension ICD Codes: I10 - Essential (primary) hypertension SNOMED: 02440620 (2) Diabetic gastroparesis ICD Codes: E11.43 - Type 2 diabetes mellitus with diabetic autonomic (poly) neuropathy SNOMED: 96537274 (3) Chronic renal failure syndrome ICD Codes: N18.9 - Chronic kidney disease, unspecified SNOMED: 28607378 (4) Anemia ICD Codes: D64.9 - Anemia, unspecified SNOMED: 681431382 (5) Vomiting ICD Codes: R11.10 - Vomiting, unspecified SNOMED: 631457390 Qualifiers: Qualified Codes: K92.0 - Hematemesis; R11.0 - Nausea (6) Gastrointestinal hemorrhage ICD Codes: K92.2 - Gastrointestinal hemorrhage, unspecified SNOMED: 10118526 Qualifiers: Qualified Codes: K92.2 - Gastrointestinal hemorrhage, unspecified Assessment/Plan PPI rx transfuse prn GI follow up monitor for bleeding. HD per renal ok to monitored bed. start pos dc tomorrow if h/h stable Subjective ROS Limited/Unobtainable: No Constitutional: Reports: malaise, weakness HEENT: Reports: no symptoms Cardiovascular: Reports: no symptoms Respiratory: Reports: no symptoms Gastrointestinal/Abdominal: Reports: no symptoms Genitourinary: Reports: no symptoms Neurologic/Psychiatric: Reports: pre-existing deficit Allergies: Coded Allergies: No Known Allergies (Unverified , 10/25/11) All Systems: reviewed and negative except above Subjective melena better. h/h slightly lower today. s/p egd. gt removed. h/h better Objective Last 24 Hour Vital Signs Date Time Temp Pulse Resp B/P Pulse Ox O2 Delivery O2 Flow Rate FiO2 08/11/16 09:09 76 127/56 08/11/16 09:08 127/56 08/11/16 07:41 97.9 76 14 127/56 98 Room Air 08/11/16 04:00 98.8 66 20 116/53 98 Room Air 08/11/16 04:00 65 08/11/16 00:00 97.5 76 20 129/63 97 Room Air 08/10/16 23:00 68 08/10/16 20:00 63 08/10/16 20:00 97.5 61 19 119/53 100 Room Air 08/10/16 17:13 114/46 08/10/16 16:00 62 08/10/16 15:40 98.0 64 18 114/46 99 Room Air 08/10/16 14:00 72 19 120/37 100 Room Air 08/10/16 13:00 70 19 117/37 100 Room Air 08/10/16 12:00 98.1 60 20 110/39 100 Room Air 08/10/16 12:00 71 08/10/16 11:00 64 20 120/47 100 Room Air Intake and Output 08/10/16 08/11/16 19:00 07:00 Intake Total 320 ml Output Total 2100 ml Balance -1780 ml Intake Oral 120 ml IV Total 200 ml Hemodialysis UF 2100 ml # Voids 1 # Bowel Movements 2 Laboratory Tests 08/11/16 07:10: White Blood Count 4.2L, Red Blood Count 2.81L, Hemoglobin 8.5L, Hematocrit 25.8L , Mean Corpuscular Volume 92, Mean Corpuscular Hemoglobin 30.2, Mean Corpuscular Hemoglobin Concent 32.9, Red Cell Distribution Width 16.9H, Platelet Count 65L, Mean Platelet Volume 7.2, Neutrophils (%) (Auto) , Lymphocytes (%) (Auto) , Monocytes (%) (Auto) , Eosinophils (%) (Auto) , Basophils (%) (Auto) , Neutrophils % (Manual) [Pending], Lymphocytes % (Manual) [Pending], Platelet Estimate [Pending], Platelet Morphology [Pending] Height (Feet): 5 Height (Inches): 4.00 Weight (Pounds): 107 Objective General Appearance: WD/WN, alert Neck: supple Cardiovascular: regular rhythm Respiratory/Chest: lungs clear Abdomen: normal bowel sounds, non tender, soft, no organomegaly Edema: no edema noted Arm (L), no edema noted Arm (R), no edema noted Leg (L), no edema noted Leg (R), no edema noted Pedal (L), no edema noted Pedal (R), no edema noted Generalized Neurologic: alert, oriented x 3, responsive MATTHEW FERRARO Aug 11, 2016 10:05
[2016-08-11] MEDS ORDERED: Tubing Blood Filter IV ONE (10:41)
[2016-08-11] MEDS ORDERED: NS 275ml ONE (10:41)
[2016-08-11 11:15] LABS: EOSINOPHILS % (MANUAL) 1 % (0-3); LYMPHOCYTES % (MANUAL) 32 % (20-45); NEUTROPHILS % (MANUAL) 64 % (45-75); TOTAL CELLS COUNTED 100
[2016-08-11 11:16] LABS: ANISOCYTOSIS 1+; BAND NEUTROPHILS % (MANUAL) 0 % (0-8); BASOPHILS % (MANUAL) 0 % (0-2); HYPOCHROMASIA 1+; PLATELET ESTIMATE DECREASED
[2016-08-11 11:29] LABS: PLATELET MORPHOLOGY NORMAL
[2016-08-11 12:08] VITALS: BP 132/58
[2016-08-11 15:34] VITALS: BP 139/65
[2016-08-11 20:00] VITALS: BP 126/57
--- NOTE | 2016-08-11 20:06 | Nephrology Progress Note ---
Assessment/Plan Problem List: (1) ESRD (end stage renal disease) on dialysis (2) DM (diabetes mellitus) (3) HTN (hypertension) (4) Anemia (5) Gastrointestinal hemorrhage Plan Transfuse PRN follow H/H HD tomorrow Subjective Subjective In NAD Objective Objective Last 24 Hour Vital Signs Date Time Temp Pulse Resp B/P Pulse Ox O2 Delivery O2 Flow Rate FiO2 08/11/16 17:08 139/65 08/11/16 16:00 63 08/11/16 15:34 97.0 70 15 139/65 100 Room Air 08/11/16 12:08 97.3 89 15 132/58 96 08/11/16 12:00 70 08/11/16 09:09 76 127/56 08/11/16 09:08 127/56 08/11/16 08:00 76 08/11/16 07:41 97.9 76 14 127/56 98 Room Air 08/11/16 04:00 98.8 66 20 116/53 98 Room Air 08/11/16 04:00 65 08/11/16 00:00 97.5 76 20 129/63 97 Room Air 08/10/16 23:00 68 Intake and Output 08/10/16 08/11/16 19:00 07:00 Intake Total 320 ml Output Total 2100 ml Balance -1780 ml Intake Oral 120 ml IV Total 200 ml Hemodialysis UF 2100 ml # Voids 1 # Bowel Movements 2 Laboratory Tests 08/11/16 07:10: White Blood Count 4.2L, Red Blood Count 2.81L, Hemoglobin 8.5L, Hematocrit 25.8L , Mean Corpuscular Volume 92, Mean Corpuscular Hemoglobin 30.2, Mean Corpuscular Hemoglobin Concent 32.9, Red Cell Distribution Width 16.9H, Platelet Count 65L, Mean Platelet Volume 7.2, Neutrophils (%) (Auto) , Lymphocytes (%) (Auto) , Monocytes (%) (Auto) , Eosinophils (%) (Auto) , Basophils (%) (Auto) , Differential Total Cells Counted 100, Neutrophils % ( Manual) 64, Lymphocytes % (Manual) 32, Monocytes % (Manual) 3, Eosinophils % ( Manual) 1, Basophils % (Manual) 0, Band Neutrophils 0, Platelet Estimate DecreasedL, Platelet Morphology Normal, Hypochromasia 1+, Anisocytosis 1+ Height (Feet): 5 Height (Inches): 4.00 Weight (Pounds): 107 Cardiovascular: normal rate Respiratory/Chest: lungs clear Extremities: other - no edema ROLAND FOX Aug 11, 2016 20:06
[2016-08-12] VITALS: BP 117/60
--- NOTE | 2016-08-12 00:35 | Cardiology Report ---
APPROVED REPORT EKG Measurement Heart [id number] Normal sinus rhythm Right bundle branch block Left anterior fascicular block Bifascicular block Septal infarct, age undetermined Abnormal ECG
--- NOTE | 2016-08-12 03:28 | Progress Note ---
DATE: 08/11/2016 CARDIOLOGY PROGRESS NOTE SUBJECTIVE: The patient is without signs of bleeding. He is starting a diet today. OBJECTIVE: VITAL SIGNS: Blood pressure 127/56, pulse 76, and respirations 18. NECK: Supple. LUNGS: Clear. CARDIAC: Regular rhythm and rate. Normal S1 and S2 with a fourth heart sound. ABDOMEN: Soft. EXTREMITIES: Without edema. LABORATORY DATA: White count 4.2, hemoglobin 8.5, potassium 4.5, BUN 77, creatinine 6.5, and albumin 2.4. IMPRESSION: 1. Acute gastrointestinal bleeding. 2. Gastroparesis. 3. s/p Gastrostomy tube removal 4. Severe protein-calorie malnutrition. 5. End-stage renal disease. 6. Hypertensive heart disease. 7. Conduction system disease with bifascicular block. 8. Ischemic heart disease. PLAN: 1. Advance diet. 2. Continue PPI. 3. Transfuse for hemoglobin less than 8 g. 4. Continue current cardiovascular regimen. 5. Off oral anti-platelet and anticoagulant drugs. Christopher Muhammad M.D. DR: AIYANA JOB#: [id number] CC: RIGOBETRO
[2016-08-12 04:00] VITALS: BP 110/51
[2016-08-12] MEDS: Prochlorperazine 10mg tab ORAL SCH ×3 (05:51→16:42)
[2016-08-12] MEDS: Levothyroxine 25mcg tab ORAL SCH (05:51)
[2016-08-12 07:36] LABS: MEAN CORPUSCULAR HEMOGLOBIN 30.4 PG (27.0-31.0); MEAN CORPUSCULAR HGB CONC 33.4 G/DL (32.0-36.0); MEAN CORPUSCULAR VOLUME 91 FL (80-99); MEAN PLATELET VOLUME 8.2 FL (6.5-10.1); PLATELET COUNT 74 K/UL (150-450); RED BLOOD COUNT 2.71 M/UL (4.70-6.10); RED CELL DISTRIBUTION WIDTH 16.7 % (11.6-14.8); WHITE BLOOD COUNT 4.4 K/UL (4.8-10.8)
[2016-08-12 07:52] VITALS: BP 121/57
[2016-08-12] MEDS: Amiodarone 200mg tab ORAL SCH (08:10)
[2016-08-12] MEDS: Brimonidine 0.2% Opth Sol RIGHT EYE SCH ×2 (08:11→18:10)
[2016-08-12] MEDS: Cosopt Opth Soln 10 mL Btl RIGHT EYE SCH ×2 (08:11→20:38)
[2016-08-12] MEDS: Losartan 50mg tab ORAL SCH ×2 (08:11→18:10)
[2016-08-12] MEDS: Pred Forte 1% Opth Susp 1ml RIGHT EYE SCH ×4 (08:11→20:38)
[2016-08-12 10:54] LABS: ANISOCYTOSIS 1+; BAND NEUTROPHILS % (MANUAL) 0 % (0-8); BASOPHILS % (MANUAL) 0 % (0-2); EOSINOPHILS % (MANUAL) 4 % (0-3); HYPOCHROMASIA 1+; LYMPHOCYTES % (MANUAL) 20 % (20-45); NEUTROPHILS % (MANUAL) 73 % (45-75); PLATELET ESTIMATE DECREASED; PLATELET MORPHOLOGY NORMAL; TOTAL CELLS COUNTED 100
--- NOTE | 2016-08-12 11:22 | Nephrology Progress Note ---
Assessment/Plan Problem List: (1) ESRD (end stage renal disease) on dialysis (2) DM (diabetes mellitus) (3) HTN (hypertension) (4) Anemia (5) Gastrointestinal hemorrhage Plan Transfuse PRN follow H/H HD as tolerated start Epogen Subjective Subjective In NAD seen on dialysis Objective Objective Last 24 Hour Vital Signs Date Time Temp Pulse Resp B/P Pulse Ox O2 Delivery O2 Flow Rate FiO2 08/12/16 10:34 Room Air 3.0 08/12/16 08:12 72 121/57 08/12/16 08:11 121/57 08/12/16 08:00 74 08/12/16 07:52 97.7 72 18 121/57 97 Room Air 08/12/16 07:30 Room Air 3.0 08/12/16 04:00 68 08/12/16 04:00 97.7 70 21 110/51 95 Room Air 08/12/16 00:00 69 08/12/16 00:00 97.9 67 21 117/60 98 Room Air 08/11/16 20:00 97.6 66 19 126/57 98 Room Air 08/11/16 20:00 69 08/11/16 17:08 139/65 08/11/16 16:00 63 08/11/16 15:34 97.0 70 15 139/65 100 Room Air 08/11/16 12:08 97.3 89 15 132/58 96 08/11/16 12:00 70 Intake and Output 08/11/16 08/12/16 19:00 07:00 Intake Total 1600 ml 240 ml Balance 1600 ml 240 ml Intake Oral 1600 ml 240 ml # Voids 4 1 Laboratory Tests 08/12/16 05:20: White Blood Count 4.4L, Red Blood Count 2.71L, Hemoglobin 8.2L, Hematocrit 24.7L , Mean Corpuscular Volume 91, Mean Corpuscular Hemoglobin 30.4, Mean Corpuscular Hemoglobin Concent 33.4, Red Cell Distribution Width 16.7H, Platelet Count 74L, Mean Platelet Volume 8.2, Neutrophils (%) (Auto) , Lymphocytes (%) (Auto) , Monocytes (%) (Auto) , Eosinophils (%) (Auto) , Basophils (%) (Auto) , Differential Total Cells Counted 100, Neutrophils % ( Manual) 73, Lymphocytes % (Manual) 20, Monocytes % (Manual) 3, Eosinophils % ( Manual) 4H, Basophils % (Manual) 0, Band Neutrophils 0, Platelet Estimate DecreasedL, Platelet Morphology Normal, Hypochromasia 1+, Anisocytosis 1+ Height (Feet): 5 Height (Inches): 4.00 Weight (Pounds): 107 Cardiovascular: normal rate Respiratory/Chest: lungs clear Extremities: other - no edema ROLAND FOX Aug 12, 2016 11:22
[2016-08-12 11:42] VITALS: BP 124/56
[2016-08-12 14:36] LABS: MEAN CORPUSCULAR HEMOGLOBIN 30.7 PG (27.0-31.0); MEAN CORPUSCULAR HGB CONC 33.1 G/DL (32.0-36.0); MEAN CORPUSCULAR VOLUME 93 FL (80-99); MEAN PLATELET VOLUME 7.5 FL (6.5-10.1); PLATELET COUNT 70 K/UL (150-450); RED BLOOD COUNT 2.82 M/UL (4.70-6.10); RED CELL DISTRIBUTION WIDTH 16.9 % (11.6-14.8); WHITE BLOOD COUNT 3.5 K/UL (4.8-10.8)
[2016-08-12 15:13] LABS: CALCIUM 8.3 mg/dL (8.6-10.2); CREATININE 3.5 mg/dL (0.7-1.2); GLOMERULAR FILTRATION RATE 17.8 mL/min (>60); POTASSIUM 3.9 mEQ/L (3.4-4.9)
[2016-08-12 16:01] LABS: ANISOCYTOSIS 1+; BAND NEUTROPHILS % (MANUAL) 2 % (0-8); BASOPHILS % (MANUAL) 1 % (0-2); EOSINOPHILS % (MANUAL) 1 % (0-3); HYPOCHROMASIA 1+; LYMPHOCYTES % (MANUAL) 19 % (20-45); NEUTROPHILS % (MANUAL) 69 % (45-75); PLATELET ESTIMATE DECREASED; PLATELET MORPHOLOGY NORMAL; TOTAL CELLS COUNTED 100
[2016-08-12 16:06] VITALS: BP 122/47
[2016-08-12 20:00] VITALS: BP 127/61
[2016-08-12] MEDS ORDERED: Epogen (for ESRD on dialysis) SUBQ SCH (21:00)
--- NOTE | 2016-08-12 23:00 | General Progress Note ---
Assessment/Plan Assessment/Plan Assessment - Recurrent UGI bleed from GT tract - s/p EGD with GT removal - ESRD - anemia - hypotension - gastroparesis - recurrent vomiting syndrome Recommendations - RBC transfusion PRN - monitor CBC - PPI - po diet Subjective Allergies: Coded Allergies: No Known Allergies (Unverified , 10/25/11) Subjective Feels OK walking around no N/V tolerating PO Objective Last 24 Hour Vital Signs Date Time Temp Pulse Resp B/P Pulse Ox O2 Delivery O2 Flow Rate FiO2 08/12/16 20:00 66 08/12/16 20:00 97.0 69 20 127/61 100 Room Air 3.0 08/12/16 18:10 122/47 08/12/16 16:06 97.0 69 20 122/47 100 Room Air 08/12/16 16:00 67 08/12/16 12:00 77 08/12/16 11:42 97.2 73 18 124/56 96 Room Air 08/12/16 10:34 Room Air 3.0 08/12/16 08:12 72 121/57 08/12/16 08:11 121/57 08/12/16 08:00 74 08/12/16 07:52 97.7 72 18 121/57 97 Room Air 08/12/16 07:30 Room Air 3.0 08/12/16 04:00 68 08/12/16 04:00 97.7 70 21 110/51 95 Room Air 08/12/16 00:00 69 08/12/16 00:00 97.9 67 21 117/60 98 Room Air Intake and Output 08/11/16 08/12/16 19:00 07:00 Intake Total 1600 ml 240 ml Balance 1600 ml 240 ml Intake Oral 1600 ml 240 ml # Voids 4 1 Laboratory Tests 08/12/16 05:20: White Blood Count 4.4L, Red Blood Count 2.71L, Hemoglobin 8.2L, Hematocrit 24.7L , Mean Corpuscular Volume 91, Mean Corpuscular Hemoglobin 30.4, Mean Corpuscular Hemoglobin Concent 33.4, Red Cell Distribution Width 16.7H, Platelet Count 74L, Mean Platelet Volume 8.2, Neutrophils (%) (Auto) , Lymphocytes (%) (Auto) , Monocytes (%) (Auto) , Eosinophils (%) (Auto) , Basophils (%) (Auto) , Differential Total Cells Counted 100, Neutrophils % ( Manual) 73, Lymphocytes % (Manual) 20, Monocytes % (Manual) 3, Eosinophils % ( Manual) 4H, Basophils % (Manual) 0, Band Neutrophils 0, Platelet Estimate DecreasedL, Platelet Morphology Normal, Hypochromasia 1+, Anisocytosis 1+ 08/12/16 14:15: White Blood Count 3.5L, Red Blood Count 2.82L, Hemoglobin 8.7L, Hematocrit 26.2L , Mean Corpuscular Volume 93, Mean Corpuscular Hemoglobin 30.7, Mean Corpuscular Hemoglobin Concent 33.1, Red Cell Distribution Width 16.9H, Platelet Count 70L, Mean Platelet Volume 7.5, Neutrophils (%) (Auto) , Lymphocytes (%) (Auto) , Monocytes (%) (Auto) , Eosinophils (%) (Auto) , Basophils (%) (Auto) , Differential Total Cells Counted 100, Neutrophils % ( Manual) 69, Lymphocytes % (Manual) 19L, Monocytes % (Manual) 8, Eosinophils % ( Manual) 1, Basophils % (Manual) 1, Band Neutrophils 2, Platelet Estimate DecreasedL, Platelet Morphology Normal, Hypochromasia 1+, Anisocytosis 1+, Sodium Level 141, Potassium Level 3.9, Chloride Level 98, Carbon Dioxide Level 32H, Anion Gap 11, Blood Urea Nitrogen 27H, Creatinine 3.5H, Estimat Glomerular Filtration Rate 17.8, Glucose Level 200H, Calcium Level 8.3L Height (Feet): 5 Height (Inches): 4.00 Weight (Pounds): 107 Objective Debilitated AA man NCAT supple CTA RRR Abd soft ND NT, GT site closed no edema KAYDEN MORALES Aug 12, 2016 23:00
[2016-08-13] VITALS: BP_SYST 129; BP_SYST 146; BP_DIAS 62
--- NOTE | 2016-08-13 01:08 | Progress Note ---
DATE: 08/12/2016 CARDIOLOGY AND INTERNAL MEDICINE PROGRESS NOTE SUBJECTIVE: No new bleeding noted. The patient is back on Epogen. He is tolerating diet and he is undergoing hemodialysis with ultrafiltration today. SUBJECTIVE: VITAL SIGNS: Blood pressure 121/57, pulse 72, and respirations 18. NECK: Supple. LUNGS: Clear. CARDIAC: Regular. Normal S1 and S2. ABDOMEN: Soft. NT/ND. No edema. LABORATORY DATA: Hemoglobin is 8.2. IMPRESSION: 1. End-stage renal disease. 2. Acute gastrointestinal bleeding. 3. Gastroparesis with prior hx G-tube. 4. Conduction system disease of the heart. 5. Hypertensive cardiomyopathy. 6. Anemia, multifactorial. PLAN: 1. Continue current regimen and plan of care. 2. If hemoglobin is stable over the next 24 hours, may consider discharge. Christopher Muhammad M.D. DR: GIDEON JOB#: [id number] CC: RIGOBERTO
[2016-08-13 04:00] VITALS: BP 146/62
[2016-08-13] MEDS: Prochlorperazine 10mg tab ORAL SCH ×3 (06:13→16:44)
[2016-08-13] MEDS: Levothyroxine 25mcg tab ORAL SCH (06:13)
[2016-08-13 07:28] LABS: ALBUMIN/GLOBULIN RATIO 1.5 (1.0-2.7); CALCIUM 9.1 mg/dL (8.6-10.2); CREATININE 4.8 mg/dL (0.7-1.2); GLOMERULAR FILTRATION RATE 12.4 mL/min (>60); POTASSIUM 4.6 mEQ/L (3.4-4.9); TOTAL PROTEIN 4.6 g/dL (6.6-8.7)
[2016-08-13 07:31] LABS: MEAN CORPUSCULAR HEMOGLOBIN 30.4 PG (27.0-31.0); MEAN CORPUSCULAR HGB CONC 32.1 G/DL (32.0-36.0); MEAN CORPUSCULAR VOLUME 95 FL (80-99); MEAN PLATELET VOLUME 8.1 FL (6.5-10.1); PLATELET COUNT 74 K/UL (150-450); RED CELL DISTRIBUTION WIDTH 17.7 % (11.6-14.8); WHITE BLOOD COUNT 3.5 K/UL (4.8-10.8)
[2016-08-13 07:45] LABS: THYROID STIMULATING HORMONE 4.2 uIU/mL (0.300-4.500)
[2016-08-13 08:00] VITALS: BP 152/71
[2016-08-13] MEDS: Cosopt Opth Soln 10 mL Btl RIGHT EYE SCH ×2 (08:30→21:28)
[2016-08-13] MEDS: Pred Forte 1% Opth Susp 1ml RIGHT EYE SCH ×4 (09:27→21:29)
[2016-08-13] MEDS: Brimonidine 0.2% Opth Sol RIGHT EYE SCH ×2 (09:27→17:19)
[2016-08-13] MEDS: Amiodarone 200mg tab ORAL SCH (09:27)
[2016-08-13] MEDS: Losartan 50mg tab ORAL SCH ×2 (09:28→17:19)
[2016-08-13 10:21] LABS: ANISOCYTOSIS 1+; BAND NEUTROPHILS % (MANUAL) 0 % (0-8); BASOPHILS % (MANUAL) 0 % (0-2); EOSINOPHILS % (MANUAL) 1 % (0-3); HYPOCHROMASIA 1+; LYMPHOCYTES % (MANUAL) 22 % (20-45); NEUTROPHILS % (MANUAL) 71 % (45-75); PLATELET ESTIMATE DECREASED; PLATELET MORPHOLOGY NORMAL; TOTAL CELLS COUNTED 100
[2016-08-13 12:13] VITALS: BP 143/62
--- NOTE | 2016-08-13 12:36 | Nephrology Progress Note ---
Assessment/Plan Problem List: (1) ESRD (end stage renal disease) on dialysis (2) DM (diabetes mellitus) (3) HTN (hypertension) (4) Anemia (5) Gastrointestinal hemorrhage Plan follow H/H HD in AM cont Epogen Subjective Subjective walks in the hallways Objective Objective Last 24 Hour Vital Signs Date Time Temp Pulse Resp B/P Pulse Ox O2 Delivery O2 Flow Rate FiO2 08/13/16 12:13 96.8 69 20 143/62 99 Room Air 08/13/16 09:28 152/71 08/13/16 09:28 72 152/71 08/13/16 08:00 97.3 72 22 152/71 99 Room Air 08/13/16 04:00 97.0 72 20 146/62 100 Room Air 3.0 08/13/16 04:00 73 08/13/16 00:00 65 08/13/16 00:00 97.0 72 20 129/62 100 Room Air 3.0 08/12/16 20:00 66 08/12/16 20:00 97.0 69 20 127/61 100 Room Air 3.0 08/12/16 18:10 122/47 08/12/16 16:06 97.0 69 20 122/47 100 Room Air 08/12/16 16:00 67 Intake and Output 08/12/16 08/13/16 19:00 07:00 Intake Total 360 ml 240 ml Output Total 1100 ml Balance -740 ml 240 ml Intake Oral 360 ml 240 ml Hemodialysis UF 1100 ml Laboratory Tests 08/12/16 14:15: White Blood Count 3.5L, Red Blood Count 2.82L, Hemoglobin 8.7L, Hematocrit 26.2L , Mean Corpuscular Volume 93, Mean Corpuscular Hemoglobin 30.7, Mean Corpuscular Hemoglobin Concent 33.1, Red Cell Distribution Width 16.9H, Platelet Count 70L, Mean Platelet Volume 7.5, Neutrophils (%) (Auto) , Lymphocytes (%) (Auto) , Monocytes (%) (Auto) , Eosinophils (%) (Auto) , Basophils (%) (Auto) , Differential Total Cells Counted 100, Neutrophils % ( Manual) 69, Lymphocytes % (Manual) 19L, Monocytes % (Manual) 8, Eosinophils % ( Manual) 1, Basophils % (Manual) 1, Band Neutrophils 2, Platelet Estimate DecreasedL, Platelet Morphology Normal, Hypochromasia 1+, Anisocytosis 1+, Sodium Level 141, Potassium Level 3.9, Chloride Level 98, Carbon Dioxide Level 32H, Anion Gap 11, Blood Urea Nitrogen 27H, Creatinine 3.5H, Estimat Glomerular Filtration Rate 17.8, Glucose Level 200H, Calcium Level 8.3L 08/13/16 06:40: White Blood Count 3.5L, Red Blood Count 2.90L, Hemoglobin 8.8L, Hematocrit 27.4L , Mean Corpuscular Volume 95, Mean Corpuscular Hemoglobin 30.4, Mean Corpuscular Hemoglobin Concent 32.1, Red Cell Distribution Width 17.7H, Platelet Count 74L, Mean Platelet Volume 8.1, Neutrophils (%) (Auto) , Lymphocytes (%) (Auto) , Monocytes (%) (Auto) , Eosinophils (%) (Auto) , Basophils (%) (Auto) , Differential Total Cells Counted 100, Neutrophils % ( Manual) 71, Lymphocytes % (Manual) 22, Monocytes % (Manual) 6, Eosinophils % ( Manual) 1, Basophils % (Manual) 0, Band Neutrophils 0, Platelet Estimate DecreasedL, Platelet Morphology Normal, Hypochromasia 1+, Anisocytosis 1+, Sodium Level 138, Potassium Level 4.6, Chloride Level 97L, Carbon Dioxide Level 30, Anion Gap 11, Blood Urea Nitrogen 36H, Creatinine 4.8H, Estimat Glomerular Filtration Rate 12.4, Glucose Level 155H, Calcium Level 9.1, Total Bilirubin 0.3 , Aspartate Amino Transf (AST/SGOT) 27, Alanine Aminotransferase (ALT/SGPT) 30, Alkaline Phosphatase 65, Total Protein 4.6L, Albumin 2.8L, Globulin 1.8, Albumin /Globulin Ratio 1.5, Thyroid Stimulating Hormone (TSH) 4.200 Height (Feet): 5 Height (Inches): 4.00 Weight (Pounds): 107 Cardiovascular: normal rate Respiratory/Chest: lungs clear Extremities: other - no edema ROLAND FOX Aug 13, 2016 12:36
[2016-08-13 15:47] VITALS: BP 122/68
[2016-08-13 20:00] VITALS: BP 124/60
--- NOTE | 2016-08-13 22:07 | General Progress Note ---
Assessment/Plan Assessment/Plan Assessment - Recurrent UGI bleed from GT tract - s/p EGD with GT removal - ESRD - anemia - hypotension - gastroparesis - recurrent vomiting syndrome Recommendations - RBC transfusion PRN - monitor CBC - PPI - po diet Subjective Allergies: Coded Allergies: No Known Allergies (Unverified , 10/25/11) Subjective Feels OK walking around no N/V tolerating PO no abd pain Objective Last 24 Hour Vital Signs Date Time Temp Pulse Resp B/P Pulse Ox O2 Delivery O2 Flow Rate FiO2 08/13/16 20:00 97.0 66 20 124/60 100 Room Air 08/13/16 17:19 135/67 08/13/16 15:47 97.5 72 18 122/68 100 Room Air 08/13/16 15:44 66 08/13/16 12:13 96.8 69 20 143/62 99 Room Air 08/13/16 11:30 73 08/13/16 09:28 152/71 08/13/16 09:28 72 152/71 08/13/16 08:00 97.3 72 22 152/71 99 Room Air 08/13/16 07:24 80 08/13/16 04:00 97.0 72 20 146/62 100 Room Air 3.0 08/13/16 04:00 73 08/13/16 00:00 65 08/13/16 00:00 97.0 72 20 129/62 100 Room Air 3.0 Intake and Output 08/12/16 08/13/16 19:00 07:00 Intake Total 360 ml 240 ml Output Total 1100 ml Balance -740 ml 240 ml Intake Oral 360 ml 240 ml Hemodialysis UF 1100 ml Laboratory Tests 08/13/16 06:40: White Blood Count 3.5L, Red Blood Count 2.90L, Hemoglobin 8.8L, Hematocrit 27.4L , Mean Corpuscular Volume 95, Mean Corpuscular Hemoglobin 30.4, Mean Corpuscular Hemoglobin Concent 32.1, Red Cell Distribution Width 17.7H, Platelet Count 74L, Mean Platelet Volume 8.1, Neutrophils (%) (Auto) , Lymphocytes (%) (Auto) , Monocytes (%) (Auto) , Eosinophils (%) (Auto) , Basophils (%) (Auto) , Differential Total Cells Counted 100, Neutrophils % ( Manual) 71, Lymphocytes % (Manual) 22, Monocytes % (Manual) 6, Eosinophils % ( Manual) 1, Basophils % (Manual) 0, Band Neutrophils 0, Platelet Estimate DecreasedL, Platelet Morphology Normal, Hypochromasia 1+, Anisocytosis 1+, Sodium Level 138, Potassium Level 4.6, Chloride Level 97L, Carbon Dioxide Level 30, Anion Gap 11, Blood Urea Nitrogen 36H, Creatinine 4.8H, Estimat Glomerular Filtration Rate 12.4, Glucose Level 155H, Calcium Level 9.1, Total Bilirubin 0.3 , Aspartate Amino Transf (AST/SGOT) 27, Alanine Aminotransferase (ALT/SGPT) 30, Alkaline Phosphatase 65, Total Protein 4.6L, Albumin 2.8L, Globulin 1.8, Albumin /Globulin Ratio 1.5, Thyroid Stimulating Hormone (TSH) 4.200 Height (Feet): 5 Height (Inches): 4.00 Weight (Pounds): 107 Objective Debilitated AA man NCAT supple CTA RRR Abd soft ND NT, GT site closed no edema KAYDEN MORALES Aug 13, 2016 22:07
[2016-08-14 00:04] VITALS: BP 128/75
--- NOTE | 2016-08-14 01:17 | Progress Note ---
DATE: 08/13/2016 CARDIOLOGY PROGRESS NOTE SUBJECTIVE: The patient has not had any new bleeding. His G-tube was removed several days ago and he is tolerating oral intake. He is ambulatory. Slight abdominal pain. OBJECTIVE: VITAL SIGNS: Blood pressure 124/60, pulse 66, and respirations 20. NECK: Supple. LUNGS: Clear. CARDIAC: Regular. Normal S1 and S2. ABDOMEN: Soft. No edema. LABORATORY DATA: Labs noted. PLAN: The patient will have dialysis tomorrow. If his GI status remains stable, he will be discharged home for outpatient followup to be arranged. Medication regimen reviewed. Christopher Muhammad M.D. DR: NEIL JOB#: [id number] CC:
[2016-08-14 04:01] VITALS: BP 143/67
[2016-08-14] MEDS: Levothyroxine 25mcg tab ORAL SCH (06:45)
[2016-08-14] MEDS: Prochlorperazine 10mg tab ORAL SCH ×2 (06:45→11:18)
[2016-08-14 08:04] LABS: MEAN CORPUSCULAR HEMOGLOBIN 31.2 PG (27.0-31.0); MEAN CORPUSCULAR HGB CONC 33.1 G/DL (32.0-36.0); MEAN CORPUSCULAR VOLUME 94 FL (80-99); MEAN PLATELET VOLUME 7.4 FL (6.5-10.1); PLATELET COUNT 74 K/UL (150-450); RED CELL DISTRIBUTION WIDTH 17.5 % (11.6-14.8); WHITE BLOOD COUNT 4.4 K/UL (4.8-10.8)
[2016-08-14 08:07] VITALS: BP 148/73
[2016-08-14] MEDS: Amiodarone 200mg tab ORAL SCH (08:07)
[2016-08-14] MEDS: Cosopt Opth Soln 10 mL Btl RIGHT EYE SCH (08:08)
[2016-08-14] MEDS: Losartan 50mg tab ORAL SCH (08:08)
[2016-08-14] MEDS: Pred Forte 1% Opth Susp 1ml RIGHT EYE SCH ×2 (08:09→12:55)
[2016-08-14] MEDS: Brimonidine 0.2% Opth Sol RIGHT EYE SCH (08:09)
[2016-08-14 08:20] LABS: CREATININE 6.3 mg/dL (0.7-1.2); GLOMERULAR FILTRATION RATE 9.1 mL/min (>60); PHOSPHORUS 7.9 mg/dL (2.5-4.8); POTASSIUM 5.7 mEQ/L (3.4-4.9)
[2016-08-14 10:37] LABS: BASOPHILS % (MANUAL) 1 % (0-2); EOSINOPHILS % (MANUAL) 1 % (0-3); LYMPHOCYTES % (MANUAL) 23 % (20-45); NEUTROPHILS % (MANUAL) 67 % (45-75); TOTAL CELLS COUNTED 100
[2016-08-14 10:38] LABS: ANISOCYTOSIS 1+; BAND NEUTROPHILS % (MANUAL) 0 % (0-8); HYPOCHROMASIA 2+; PLATELET ESTIMATE DECREASED; PLATELET MORPHOLOGY NORMAL; SPHEROCYTES 1+
[2016-08-14 12:08] VITALS: BP 128/59
[2016-08-14] MEDS ORDERED: EPOGEN20000 UNI1 SUBQ (13:25)
[2016-08-14] MEDS ORDERED: ZOFRAN4 M1 ORAL (13:27)
[2016-08-14] MEDS ORDERED: PROTONIX20 MG ORAL (13:28)
[2016-08-14] MEDS ORDERED: RENVELA800 MG ORAL (13:30)
--- NOTE | 2016-08-14 14:01 | Nephrology Progress Note ---
Assessment/Plan Problem List: (1) ESRD (end stage renal disease) on dialysis (2) DM (diabetes mellitus) (3) HTN (hypertension) (4) Anemia (5) Gastrointestinal hemorrhage Plan was dialyzed today DC today Discussed with RN Subjective Subjective In NAD Objective Objective Last 24 Hour Vital Signs Date Time Temp Pulse Resp B/P Pulse Ox O2 Delivery O2 Flow Rate FiO2 08/14/16 12:08 97.7 70 18 128/59 97 Room Air 08/14/16 10:45 Room Air 08/14/16 08:08 148/73 08/14/16 08:08 79 148/73 08/14/16 08:07 97.3 79 18 148/73 98 Room Air 08/14/16 08:00 81 08/14/16 07:40 Room Air 08/14/16 04:01 98.2 75 20 143/67 99 Room Air 08/14/16 04:00 77 08/14/16 00:10 66 08/14/16 00:04 98.5 78 21 128/75 98 Room Air 08/13/16 20:00 71 08/13/16 20:00 97.0 66 20 124/60 100 Room Air 08/13/16 17:19 135/67 08/13/16 15:47 97.5 72 18 122/68 100 Room Air 08/13/16 15:44 66 Intake and Output 08/13/16 08/14/16 19:00 07:00 Intake Total 480 ml Balance 480 ml Intake Oral 480 ml # Voids 3 2 # Bowel Movements 1 2 Laboratory Tests 08/14/16 05:45: White Blood Count 4.4L, Red Blood Count 2.90L, Hemoglobin 9.0L, Hematocrit 27.3L , Mean Corpuscular Volume 94, Mean Corpuscular Hemoglobin 31.2H, Mean Corpuscular Hemoglobin Concent 33.1, Red Cell Distribution Width 17.5H, Platelet Count 74L, Mean Platelet Volume 7.4, Neutrophils (%) (Auto) , Lymphocytes (%) (Auto) , Monocytes (%) (Auto) , Eosinophils (%) (Auto) , Basophils (%) (Auto) , Differential Total Cells Counted 100, Neutrophils % ( Manual) 67, Lymphocytes % (Manual) 23, Monocytes % (Manual) 8, Eosinophils % ( Manual) 1, Basophils % (Manual) 1, Band Neutrophils 0, Platelet Estimate DecreasedL, Platelet Morphology Normal, Hypochromasia 2+, Anisocytosis 1+, Spherocytes 1+, Sodium Level 138, Potassium Level 5.7H, Chloride Level 97L, Carbon Dioxide Level 27, Anion Gap 14, Blood Urea Nitrogen 54H, Creatinine 6.3H , Estimat Glomerular Filtration Rate 9.1, Glucose Level 113H, Calcium Level 9.0 , Phosphorus Level 7.9H Height (Feet): 5 Height (Inches): 4.00 Weight (Pounds): 107 Cardiovascular: normal rate Respiratory/Chest: lungs clear Extremities: other - no edema ROLAND FOX Aug 14, 2016 14:01
--- NOTE | 2016-08-14 19:47 | General Progress Note ---
Assessment/Plan Assessment/Plan Assessment - resolved GIB - s/p EGD with GT removal - ESRD - anemia - hypotension - gastroparesis - recurrent vomiting syndrome Recommendations - RBC transfusion PRN - monitor CBC - PPI - po diet - d/c planning Subjective Allergies: Coded Allergies: No Known Allergies (Unverified , 10/25/11) Subjective Feels OK walking around no N/V tolerating PO no abd pain for discharge today Objective Last 24 Hour Vital Signs Date Time Temp Pulse Resp B/P Pulse Ox O2 Delivery O2 Flow Rate FiO2 08/14/16 12:08 97.7 70 18 128/59 97 Room Air 08/14/16 12:00 74 08/14/16 10:45 Room Air 08/14/16 08:08 148/73 08/14/16 08:08 79 148/73 08/14/16 08:07 97.3 79 18 148/73 98 Room Air 08/14/16 08:00 81 08/14/16 07:40 Room Air 08/14/16 04:01 98.2 75 20 143/67 99 Room Air 08/14/16 04:00 77 08/14/16 00:10 66 08/14/16 00:04 98.5 78 21 128/75 98 Room Air 08/13/16 20:00 71 08/13/16 20:00 97.0 66 20 124/60 100 Room Air Intake and Output 08/13/16 08/14/16 19:00 07:00 Intake Total 480 ml Balance 480 ml Intake Oral 480 ml # Voids 3 2 # Bowel Movements 1 2 Laboratory Tests 08/14/16 05:45: White Blood Count 4.4L, Red Blood Count 2.90L, Hemoglobin 9.0L, Hematocrit 27.3L , Mean Corpuscular Volume 94, Mean Corpuscular Hemoglobin 31.2H, Mean Corpuscular Hemoglobin Concent 33.1, Red Cell Distribution Width 17.5H, Platelet Count 74L, Mean Platelet Volume 7.4, Neutrophils (%) (Auto) , Lymphocytes (%) (Auto) , Monocytes (%) (Auto) , Eosinophils (%) (Auto) , Basophils (%) (Auto) , Differential Total Cells Counted 100, Neutrophils % ( Manual) 67, Lymphocytes % (Manual) 23, Monocytes % (Manual) 8, Eosinophils % ( Manual) 1, Basophils % (Manual) 1, Band Neutrophils 0, Platelet Estimate DecreasedL, Platelet Morphology Normal, Hypochromasia 2+, Anisocytosis 1+, Spherocytes 1+, Sodium Level 138, Potassium Level 5.7H, Chloride Level 97L, Carbon Dioxide Level 27, Anion Gap 14, Blood Urea Nitrogen 54H, Creatinine 6.3H , Estimat Glomerular Filtration Rate 9.1, Glucose Level 113H, Calcium Level 9.0 , Phosphorus Level 7.9H Height (Feet): 5 Height (Inches): 4.00 Weight (Pounds): 107 Objective Debilitated AA man NCAT supple CTA RRR Abd soft ND NT, GT site closed no edema KAYDEN MORALES Aug 14, 2016 19:47
--- NOTE | 2016-08-15 03:48 | Progress Note ---
DATE: 08/14/2016 INTERNAL MEDICINE PROGRESS NOTE SUBJECTIVE: The patient is seen following hemodialysis. He has no chest pain or shortness of breath. No nausea or vomiting. He is tolerating diet. OBJECTIVE: VITAL SIGNS: Afebrile. Blood pressure 128/59, pulse 70, respiratory rate 18, and oxygen saturation 97% on room air. NECK: Supple. LUNGS: Clear. CARDIAC: Regular S1, paradoxically split S2. ABDOMEN: Soft. Old G-tube site has healed. EXTREMITIES: With no edema. IMPRESSION: 1. Fascicular heart block. 2. Hypertensive cardiomyopathy. 3. Paroxysmal atrial fibrillation. 4. End-stage renal disease. 5. Status post G-tube explantation. 6. Diabetic gastroparesis. PLAN: 1. Outpatient hemodialysis with ultrafiltration. 2. Continue current cardiovascular regimen as well as maintenance dose of amiodarone. 3. Outpatient followup with ongoing monitoring of cardiorenal parameters, volume status, and diabetic control. Christopher Muhammad M.D. DR: WILBUR JOB#: [id number] CC:
--- NOTE | 2016-08-17 06:43 | Discharge Summary ---
Discharge Summary Hospital Course Date of Admission Aug 07, 2016 at 10:29 Date of Discharge Aug 14, 2016 at 15:57 Admitting Diagnosis upper g.i.bleed HPI Jeet Chaidez is a 61 year old male who was admitted on Aug 07, 2016 at 10 :29 for Upper Gastrointestinal Bleed Hospital Course dc summary # [id number] Discharge Medications Continued Medications: Amiodarone Hcl (Amiodarone Hcl) 100 Mg Tablet 200 MG ORAL DAILY, TAB Amlodipine Besylate* (Amlodipine Besylate*) 10 Mg Tablet 10 MG ORAL DAILY, TAB Brimonidine Tartrate* (Alphagan*) 5 Ml Drops 1 DROP RIGHT EYE BID, ML Dorzolamide HCl/Timolol Maleat (Dorzolamide-Timolol Eye Drops) 1 Drop Drops 1 DROP RIGHT EYE BID, #10 Epoetin Karel (Epogen) 20,000 Unit/2 Ml Vial 7000 UNIT SUBQ THREE TIMES A WEEK, VIAL Latanoprost* (Xalatan*) 2.5 Ml Drops 1 DROP RIGHT EYE BEDTIME, #2.5 ML 0 Refills Levothyroxine Sodium* (Synthroid*) 25 Mcg Tablet 25 MCG ORAL DAILY, TAB Take in the morning on an empty stomach, at least 30 minutes before food. Losartan Potassium* (Cozaar*) 50 Mg Tablet 50 MG PO BID, #20 TAB Ondansetron (Zofran) 4 Mg Tablet 4 MG ORAL Q6H PRN for Nausea & Vomiting, TAB Pantoprazole Sodium (Protonix) 20 Mg Tablet.dr 40 MG ORAL EVERY 12 HOURS, TAB Prednisolone Acetate (Prednisolone Acetate) 5 Ml Drops.susp 1 DROP RIGHT EYE QID, #10 Prochlorperazine (Compazine*) 10 Mg Tab 10 MG ORAL BEFORE MEALS, #120 TAB Sevelamer Carbonate (Renvela) 800 Mg Tablet 800 MG ORAL THREE TIMES A DAY, TAB Discontinued Medications: Acetazolamide* (Acetazolamide*) 500 Mg Capsule.er 500 MG ORAL TWICE A DAY, #30 CAP Amiodarone Hcl* (Cordarone*) 200 Mg Tab 100 MG ORAL DAILY, #30 TAB Amitriptyline HCl (Elavil*) 25 Mg Tab 25 MG ORAL BEDTIME, #30 TAB Latanoprost* (Xalatan*) 2.5 Ml Drops 1 DROP RIGHT EYE BEDTIME, #2.5 ML 0 Refills Metronidazole* (Flagyl*) 500 Mg Tablet 500 MG GT Q8HR for 10 Days, #30 TAB Minoxidil* (Loniten*) 2.5 Mg Tablet 5 MG PO EVERY 12 HOURS, TAB Ondansetron Hcl* (Zofran*) 8 Mg Tablet 8 MG ORAL EVERY 8 HOURS PRN for Nausea & Vomiting, #4 TAB 0 Refills Ondansetron* (Zofran*) 4 Mg/2 Ml Vial 4 MG IVP EVERY 4 HOURS PRN for Nausea & Vomiting, #30 VIAL Oxycodone/Acetaminophen 5-325* (Percocet 5-325 Mg Tablet*) 1 Each Tablet 1 TAB ORAL EVERY 12 HOURS PRN for For Pain, TAB Pantoprazole Sodium (Protonix) 20 Mg Tablet.dr 20 MG ORAL EVERY 12 HOURS, TAB Pantoprazole* (Pantoprazole*) 40 Mg Tablet.dr 40 MG ORAL DAILY, TAB Sevelamer Carbonate (Renvela) 800 Mg Tab 4 TAB-CAP PO TID, #360 Sevelamer Carbonate (Renvela) 800 Mg Tab 4000 MG ORAL THREE TIMES A DAY, TAB Sitagliptin* (Januvia*) 25 Mg Tablet 25 MG ORAL DAILY, TAB Discharge Condition Upon Discharge: stable Discharge Disposition Patient was discharged home with home health Discharge Diagnoses: Discharge Instructions Discharge Instructions Special Instructions I have been assigned to complete a D/C Summary on this account. I was not involved in the patient management Nata Finney NP (Vanchtein) Aug 17, 2016 06:43
--- NOTE | 2016-08-17 09:00 | Discharge Summary 2 SIG ---
DATE OF ADMISSION: 08/07/2016 DATE OF DISCHARGE: 08/14/2016 REASON FOR ADMISSION: The patient is a 61-year-old male with history of end-stage renal disease, diabetic gastroparesis, hypertensive cardiomyopathy, and history of G-tube, was recently admitted with complaints of GI bleeding. At that time, he required multiple transfusion. He also underwent endoscopy that review bleeding from his G-tube site, which was catheterized and the patient was discharged in stable condition. However, a few days prior to current admission, he started to have recurrent hematemesis, melena, and bright red blood per rectum. He did not present to the emergency room until three days later. On evaluation in the emergency room, he was found hemoglobin 4.8 and hematocrit 15.4. The patient also was hypotensive with a blood pressure of 78/49. The patient admitted to ICU for further management. ADMITTING DIAGNOSES: 1. Upper gastrointestinal bleeding. 2. Severe anemia. 3. End-stage renal disease, on hemodialysis. 4. Hypertension. 5. Diabetic gastroparesis. HOSPITAL STAY: The patient admitted initially to ICU. GI consult and Nephrology consult were requested. The patient undergone transfusion of packed red blood cells. When stabilized, the patient subsequently undergone EGD. Initially, the patient was on Protonix drip in addition to transfusion and GI closely followed the patient. When patient is stabilized, hemoglobin and hematocrit were stable. The patient undergone upper endoscopy, which revealed no lesions in the upper GI tract especially under the G-tube to explain the bleeding. The patient requested removal of G-tube. G-tube was removed. After removal found small gastric ulcer on the gastrostomy tube which was treated with the catheterization single Endoclip placement. No further bleeding after endoscopy. The patient started on oral fluids as tolerated as well as continue PPI orally. The patient also with other issues including end-stage renal disease, on hemodialysis. Shuttle Buggy Operator closely followed. Hemodialysis was arranged as per professional skater. Renal parameters and electrolytes were closely monitored. Volume status was monitored. The patient has multiply chronic cardiac problem and cardiovascular regimen was continued along with a maintenance dose of amiodarone. Initial EKG revealed normal sinus rhythm, right bundle branch block, left anterior fascicular block, bifascicular block. No further upper or lower GI bleeding. The patient was stable for discharge home with home health. Continue cardiovascular regimen with a maintenance dose of amiodarone. Outpatient followup with the ongoing monitoring of cardiac, renal parameters, volume status, and diabetic control. DISCHARGE DIAGNOSES: 1. Upper gastrointestinal bleeding. 2. Status post esophagogastroduodenoscopy and clipped and removal of gastrostomy tube. 3. Severe anemia status post multiple blood transfusion. 4. Hypertension, resolved. 5. End-stage renal disease, on hemodialysis. 6. Diabetic gastroparesis. 7. Hypertensive cardiomyopathy. 8. Paroxysmal atrial fibrillation. 9. Fascicular heart block. DISCHARGE MEDICATIONS: See medication reconciliation list. DISCHARGE INSTRUCTIONS: The patient discharged home with home health. FOLLOWUP: Follow up with the primary medical doctor. Guillermo Galvez M.D. I have been assigned to dictate discharge summary on this account and I was not involved in the patient's management. Nata Villasenorupstate golisano children's hospitalSpencer N.PBlake DR: Ivan JOB#: [id number] CC:
== END 2016-08-14 15:57 | disposition home health service (06) | DRG 326 ==
LOC: ENRESERVTM → ENRESERVDT → EMR 10:10 → EDBEDREQ 10:19 → ICU 10:29 → EDBEDREQ 10:43 → ICU 12:31 → 2E 08-10 14:55
PROC: 5A1D60Z (ICD-10-PCS; principal; 2016-08-07)
PROC: 30233N1 Transfusion of Nonautologous Red Blood Cells into Peripheral Vein, Percutaneous Approach (ICD-10-PCS; principal; 2016-08-07)
PROC: 0DP64UZ Removal of Feeding Device from Stomach, Percutaneous Endoscopic Approach (ICD-10-PCS; 2016-08-10)
PROC: 0W3P4ZZ Control Bleeding in Gastrointestinal Tract, Percutaneous Endoscopic Approach (ICD-10-PCS; 2016-08-10)
DX: K92.2 Gastrointestinal hemorrhage, unspecified (principal); N18.6 End stage renal disease; E43 Unspecified severe protein-calorie malnutrition; I95.9 Hypotension, unspecified; I13.11 Hypertensive heart and chronic kidney disease without heart failure, with stage 5 chronic kidney disease, or end stage renal disease; I45.2 Bifascicular block; Z43.1 Encounter for attention to gastrostomy; K25.9 Gastric ulcer, unspecified as acute or chronic, without hemorrhage or perforation; I48.91 Unspecified atrial fibrillation; K31.84 Gastroparesis; E11.43 Type 2 diabetes mellitus with diabetic autonomic (poly)neuropathy; Z99.2 Dependence on renal dialysis; D64.9 Anemia, unspecified; G43.A0 Cyclical vomiting, in migraine, not intractable; I25.9 Chronic ischemic heart disease, unspecified
CPT/HCPCS: 36415; 80048; 80053; 80069; 82962; 83690; 84100; 84443; 85007; 85025; 85610; 85730; 86850; 86900; 86901; 86920; 93005; 94003; 94150; J2250; J2405

== ENCOUNTER 2017-02-04 22:00 | Emergency (ER) | payer MEDICARE, MEDICAID ==
[~2017-02-04] VITALS: Ht 165.1 cm; Wt 47.6 kg
[~2017-02-04 22:00] MED LIST changes: +EPOGEN20000 UNI1 SUBQ; +PROTONIX20 MG ORAL; +ZOFRAN4 M1 ORAL
[2017-02-04 23:55] VITALS: BP 162/73
[2017-02-05 01:28] VITALS: BP 155/62
[2017-02-05 02:00] VITALS: BP 155/62
--- NOTE | 2017-02-05 12:23 | Diagnostic Imaging Report ---
Indication: Dyspnea Comparison: 05/08/15 A single view chest radiograph was obtained. Findings: Interstitial edema, prominent pulmonary vascularity and heart size noted. Mattress sutures projected over the right upper lobe. Right pleural effusion suspected. Infiltrate not excluded. Surgical clips projected over the right chest. Bones are osteopenic. Impression: Recent right-sided surgery with resection noted. The nature of the surgery unknown. Mild CHF/interstitial edema. Right pleural effusion and atelectasis and/or infiltrate
--- NOTE | 2017-02-05 13:57 | Diagnostic Imaging Report ---
Indication: Chest pain Technique: Continuous helical transaxial imaging of the chest was obtained from the thoracic inlet to the upper abdomen. No intravenous contrast was administered. Coronal 2-D reformats were also obtained. Total Dose length Product (DLP): [address] Dose Index Volume (CTDIvol): 0.15, 11.85 mGy Comparison: none Findings: There is a small pericardial effusion. The heart is enlarged. Aorta is moderately calcified. The ascending aorta is dilated and measures approximately 3.8 cm. There is some breathing motion which limits evaluation. There is a moderate size right pleural effusion, which is probably loculated. Some fluid noted in the major fissure which appears non-gravity dependent. The study was done without IV contrast. Evaluation for loculations is limited on this examination. There is atelectasis present at the right lung base associated with the effusion. A staple line noted in portion of the right upper lobe indicative of partial resection. A small amount of air also noted within the pleural space presumably postsurgical in nature. Infection or empyema not excluded. Surgical clips in the anterior chest wall demonstrated. Small nodes noted within the mediastinum. Visualized part of the upper abdomen shows pneumobilia and prominence of the CBD and biliary ducts. The kidneys are partially seen but appear atrophic. Impression: Mild to moderate right pleural effusion with suggestion of loculation. Postsurgical changes associated with partial lung resection of small pericardial effusion. Cardiomegaly and atherosclerotic vascular disease. The CT scanner at [facility] is accredited by the [employer] and the scans are performed using dose optimization techniques as appropriate to a performed exam including Automatic Exposure control.
--- NOTE | 2017-02-07 08:30 | Emergency Room Report ---
History of Present Illness General Chief Complaint: General Complaint Source: Patient, EMS Present Illness HPI Patient had a right-sided thoracentesis several days ago at [facility] Patient is a dialysis patient renal failure He is due for dialysis in the morning He had removed a bandage that was in place and after removing the bandage and breaking the scab he noticed increased bleeding this is in the right back area And presents for further eval Denies any chest pain or short of breath denies any weakness Allergies: Coded Allergies: No Known Allergies (Unverified , 10/25/11) Patient History Past Medical History: see triage record Pertinent Family History: none Reviewed Nursing Documentation: PMH: Agreed, PSxH: Agreed Nursing Documentation-PMH Past Medical History: No History, Except For Hx Cardiac Problems: Yes Hx Hypertension: Yes Hx Pacemaker: Yes Hx Asthma: No Hx COPD: No Hx Diabetes: Yes Hx Cancer: Yes Hx Gastrointestinal Problems: Yes Hx Dialysis: Yes Hx Neurological Problems: No Review of Systems All Other Systems: negative except mentioned in HPI Physical Exam Vital Signs Date Time Temp Pulse Resp B/P (MAP) Pulse Ox O2 Delivery O2 Flow Rate FiO2 02/04/17 21:54 98.2 84 18 160/94 100 Room Air Sp02 EP Interpretation: reviewed, normal General Appearance: no apparent distress Head: normocephalic, atraumatic Eyes: right eye other - blind ENT: normal pharynx Neck: full range of motion, supple Respiratory: chest non-tender, other - Crackles both lower lobe increase in the right Cardiovascular #1: regular rate, rhythm, no edema Gastrointestinal: non tender, soft Musculoskeletal: normal inspection Neurologic: alert, oriented x3, responsive Skin: other - Right back area, reveals small region of likely recent puncture wound from thoracentesis, there was a localized hematoma half by half centimeter , non-expanding Lymphatic: no adenopathy Medical Decision Making Diagnostic Impression: Primary Impression: bleeding wound ER Course Patient was put on a environmental monitoring specialist and observed After I removed the initial bandage does in place there was no signs of any active bleeding Patient was observed further Local dressing was applied to the region in question Patient continues to remain hemodynamically stable Consideration and evaluation for intercostal bleeding was entertained and CT imaging was obtained No signs of any active hemorrhage And the patient is stable for close followup Chest X-Ray Diagnostic Results Chest X-Ray Diagnostic Results : Chest X-Ray Ordered: Yes # of Views/Limited/Complete: 1 View Indication: Chest Pain EP Interpretation: Yes Interpretation: other - Right-sided atelectasis, effusion, heart size normal , no acute bony anomaly Impression: Other - Right-sided effusion Electronically Signed by: Mary Srinivasan, DO CT/MRI/US Diagnostic Results CT/MRI/US Diagnostic Results : Impression CT chest Impression: Mild to moderate right pleural effusion with suggestion of loculation. Postsurgical changes associated with partial lung resection of small pericardial effusion. Cardiomegaly and atherosclerotic vascular disease. Last Vital Signs Date Time Temp Pulse Resp B/P (MAP) Pulse Ox O2 Delivery O2 Flow Rate FiO2 02/05/17 02:00 98.9 85 18 155/62 95 Room Air Disposition: HOME, SELF-CARE Condition: Improved Referrals: NOT CHOSEN IPA/MD,REFERRING (PCP) Patient Instructions: Wound Check, Hematoma, [id number] Additional Instructions: Patient is provided with the discharge instructions notified to follow up with primary doctor in the next 2-3 days otherwise return to the er with any worsening symptoms. Please note that this report is being documented using [employer] technology. This can lead to erroneous entry secondary to incorrect interpretation by the dictating instrument. MARY SRINIVASAN D.O. Feb 07, 2017 08:30
== END 2017-02-05 02:05 | disposition home or self-care (01) ==
LOC: EDBD 22:00 → EMR 22:17
DX: L76.22 Postprocedural hemorrhage of skin and subcutaneous tissue following other procedure (principal); Y83.8 Other surgical procedures as the cause of abnormal reaction of the patient, or of later complication, without mention of misadventure at the time of the procedure; Y92.89 Other specified places as the place of occurrence of the external cause; I12.0 Hypertensive chronic kidney disease with stage 5 chronic kidney disease or end stage renal disease; N18.6 End stage renal disease; Z99.2 Dependence on renal dialysis; J90 Pleural effusion, not elsewhere classified; I50.9 Heart failure, unspecified
CPT/HCPCS: 71010; 71250; 99283